=== PATIENT | male | born 2000 | race Caucasian/White ===

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

== ENCOUNTER → 2023-08-08 | Outpatient (CLI) | payer OTHER, SELFPAY ==
[2023-08-08 15:56] LABS: Absolute Lymphocyte Count 1.94 X10^3/uL (0.83-4.51); Absolute Neutrophil Count 3.8 X10^3/uL (2.0-7.7); Basophil# 0.07 X10^3/uL; Eosinophil# 0.66 X10^3/uL; Eosinophils% 9.2 % (0-5); Hematocrit 46.9 % (40-54); Hemoglobin 15.9 g/dL (13.0-16.5); Lymphocyte # 1.94 X10^3/ul (0.83-4.51); Mean Corp Hgb Conc 33.9 g/dL (32-36); Mean Corpuscular Hgb 29.2 pg (27.0-32.0); Mean Corpuscular Volume 86.2 fL (80-94); Mean Platelet Vol. 9.5 fl (6.2-12.0); Monocyte# 0.66 X10^3/uL; Monocyte% 9.2 % (0-10); NRBC Flagged by Analyzer 0 % (0-5); Neutrophil # 3.84 X10^3/uL (2.7-7.7); Neutrophil % 53.3 % (47-70); Platelet Count 392 K/mm3 (150-450); RBC Distribution Width CV 12.6 % (11.6-14.6); RBC Distribution Width SD 39.3 fl (35.1-43.9); Red Blood Count 5.44 M/mm3 (4.6-6.2); White Blood Count 7.2 K/mm3 (4.4-11.0)
[2023-08-08 16:13] LABS: Vitamin B12 313 pg/mL (211-911); Vitamin D,25 Hydroxy 23.1 ng/mL
[2023-08-08 16:16] LABS: ALB/GLOB Ratio 1.1 RATIO (0.9-2.4); AST(SGOT) 28 U/L (15-37); Alanine Aminotransfer ALT/SGPT 50 U/L (16-61); Alkaline Phosphatase 87 U/L (45-117); Anion Gap 9 (5-15); BUN 9 mg/dL (7-18); BUN/Creat Ratio 11.1 RATIO (10-20); Calcium,Total 9.1 mg/dL (8.5-10.1); Chloride 101 mmol/L (98-107); Cholesterol 196 mg/dL (200); Creatinine, Serum 0.81 mg/dL (0.70-1.30); EST Glomerular Filtration Rate 126 mL/min (>60); Est Glom Filt Rate - Afr Amer 153 mL/min (>60); Globulin 3.8 g/dL (2.2-4.2); Glucose 91 mg/dL (74-106); High Density Lipoprotein 40 mg/dL; Potassium 3.8 mmol/L (3.5-5.1); Protein, Total 7.8 g/dL (6.4-8.2); Sodium Level 136 mmol/L (136-145); T4 Free Direct 1.13 ng/dL (0.76-1.46); Thyroid Stim Hormone (TSH) 2.55 uIU/mL (0.358-3.74); Triglycerides 215 mg/dL; Very Low Density Lipoprotein 43 mg/dL (5-40)
== END | disposition home or self-care (01) ==
LOC: MFPLAB 12:29
PROVIDERS: PCP Pediatrics; Visit Provider Family Medicine
DX: R53.83 Other fatigue (principal); E66.9 Obesity, unspecified
CPT/HCPCS: 36415; 80053; 80061; 82306; 82607; 84439; 84443; 85025

== ENCOUNTER → 2024-01-09 | Outpatient (CLI) | payer OTHER, MEDICARE, MEDICAID, SELFPAY ==
[2024-01-09 17:55] LABS: Vitamin D,25 Hydroxy 11.1 ng/mL
== END | disposition home or self-care (01) ==
PROVIDERS: PCP Family Medicine; Referring Provider Family Medicine; Visit Provider Family Medicine
DX: E55.9 Vitamin D deficiency, unspecified (principal)
CPT/HCPCS: 36415; 82306

== ENCOUNTER → 2024-05-23 | Outpatient (CLI) | payer OTHER, MEDICARE, MEDICAID, SELFPAY ==
[2024-05-23 18:59] LABS: Vitamin D,25 Hydroxy 13.5 ng/mL (30-100)
[2024-05-23 19:20] LABS: ALB/GLOB Ratio 1.6 RATIO (0.9-2.4); AST(SGOT) 24 U/L (<=37); Alanine Aminotransfer ALT/SGPT 28 U/L (<=46); Albumin, Serum 4.5 g/dL (3.5-5.0); Alkaline Phosphatase 84 U/L (40-129); Anion Gap 14 (5-15); BUN 12 mg/dL (4-19); BUN/Creat Ratio 13.5 RATIO (10-20); Calcium,Total 9.1 mg/dL (7.6-11.0); Carbon Dioxide 24.2 mmol/L (21.0-32.0); Chloride 100 mmol/L (98-108); Creatinine, Serum 0.87 mg/dL (0.70-1.20); EST Glomerular Filtration Rate 124 (>60); Globulin 2.8 g/dL (2.2-4.2); Glucose 87 mg/dL (70-99); Potassium 3.6 mmol/L (3.3-5.1); Protein, Total 7.3 g/dL (5.9-8.4); Sodium Level 138 mmol/L (133-145); Total Bilirubin 0.23 mg/dL (0.00-1.30)
== END | disposition home or self-care (01) ==
LOC: MFPLAB 16:57
PROVIDERS: PCP Family Medicine; Referring Provider Family Medicine; Visit Provider Family Medicine
DX: E55.9 Vitamin D deficiency, unspecified (principal)
CPT/HCPCS: 36415; 80053; 82306

== ENCOUNTER 2024-06-02 09:23 | Observation (INO) | payer OTHER, MEDICARE, MEDICAID, SELFPAY ==
[2024-06-02] VITALS (11 sets, daily range): BP systolic 120–136; BP diastolic 69–89; PULSE 90–110; RESP 16–20; TEMP 36.2–37.5; O2SAT 96–100; BMI 29.5; BMI 30.5
--- NOTE | 2024-06-02 09:47 | CT_ITS ---
PROCEDURE: CT neck soft tissues without and with IV contrast REASON FOR EXAM: Pain, swelling TECHNIQUE: Multiple contiguous axial images through the neck soft tissues were obtained before and after the administration of intravenous contrast. Two-dimensional coronal and sagittal reformatted images were reconstructed. Low-dose imaging technique was utilized. COMPARISON: Same-day facial bone CT FINDINGS: Symmetric enlargement and enhancement of the bilateral submandibular glands with moderate surrounding inflammatory changes most consistent with acute sialadenitis. Diffuse bilateral neck fat stranding, slightly greater on the right likely related to cellulitis. No drainable abscess. Enlarged bilateral cervical chain lymph nodes which may be reactive. No sialoliths identified. No peritonsillar or retropharyngeal abscess. Airway is patent. Parotid glands and thyroid gland are intact. Globes are intact. Lung apices are clear. No acute osseous abnormality. CT/Soft Tissue Neck W/WO Contrast IMPRESSION: Acute bilateral submandibular gland sialadenitis, likely infectious/inflammator y. Diffuse neck cellulitis, greater on the right. Probable reactive bilateral cervical chain lymphadenopathy. No drainable absce ss. One or more dose reduction techniques were used (e.g., Automated exposure contr ol, adjustment of the mA and/or kV according to patient size, use of iterative reconstruction technique). Reading Location: [facility]
--- NOTE | 2024-06-02 09:47 | RAD_ITS ---
PROCEDURE: CHEST PA AND LATERAL REASON FOR EXAM: COUGH TECHNIQUE: Two views of the chest COMPARISON: None. FINDINGS: Cardiomediastinal silhouette is within normal limits. Lungs are clear. No sizable pneumothorax. RAD/Chest PA and Lateral IMPRESSION: No acute airspace abnormality. Reading Location: [facility]
--- NOTE | 2024-06-02 09:47 | CT_ITS ---
PROCEDURE: CT facial bones with IV contrast REASON FOR EXAM: Pain, swelling TECHNIQUE: Multiple contiguous axial images through the facial bones were obtained after the administration of intravenous contrast. Two-dimensional coronal and sagittal reformatted images were reconstructed. Low-dose imaging technique was utilized. COMPARISON: None. FINDINGS: Enlargement and hyperenhancement of the bilateral submandibular glands with moderate surrounding inflammatory changes concerning for acute sialadenitis. No evidence of sialoliths. Mild adjacent cellulitis, greater on the right. Thickening of the right platysma muscle. No discrete mucosal mass. Tongue base is satisfactory. Tonsillar pillars are within normal limits. No periodontal abscess. Globes are intact. Parotid glands are within normal limits. Multiple mildly enlarged bilateral cervical chain lymph nodes which may be reactive. Mild ethmoid sinus mucosal thickening. Remaining paranasal sinuses are clear. Mastoid air cells are clear. CT/Sinus/Facial Bone WITH Contras IMPRESSION: 1. Bilateral submandibular gland sialadenitis, likely infectious/inflammatory. 2. Mild bilateral cervical chain lymphadenopathy which may be reactive. One or more dose reduction techniques were used (e.g., Automated exposure contr ol, adjustment of the mA and/or kV according to patient size, use of iterative reconstruction technique). Reading Location: [facility]
--- NOTE | 2024-06-02 09:48 | EKG12_ITS ---
Test Reason : EDEMA Blood Pressure : */* mmHG Vent. Rate : 107 BPM Atrial Rate : 107 BPM P-R Int : 126 ms QRS Dur : 90 ms QT Int : 308 ms P-R-T Axes : 47 60 33 degrees QTcB Int : 411 ms Sinus tachycardia Possible Lateral infarct , age undetermined Cannot rule out Inferior infarct , age undetermined Abnormal ECG Confirmed by DAVIN AMADOR, TEMI ([id number]), graphic editor DANISH LAU ([id number]) on 06/03/2024 8:20:58 AM Referred By: Confirmed By: TEMI JIN MD
[2024-06-02] MEDS: 0.9% Normal Saline (1000mL) 1,000 ML 1000 ML IV (10:04)
--- NOTE | 2024-06-02 10:07 | EX.ED.DYSGE1 ---
HPI History of Present Illness Chief Complaint: Edema Narrative Narrative: Chief complaint and HPI: Submandibular swelling. 24-year-old male with past medical history of allergies, depression, ADD, autism presents for evaluation of submandibular swelling. Patient presents with his mother. Most of the history given by mother. Family members in the house have all endorsed URI type symptoms including the patient. Symptoms started [place]. They consist of sore throat, congestion, mild cough. Yesterday patient developed some left-sided neck swelling that worsened today to the other side. Swelling is mostly under the chin. Patient went to urgent care and was sent to our emergency department. Patient and mother deny any fever, chills, shortness of breath, chest pain, abdominal pain, nausea, vomiting. He denies any recent dental surgery or dental pain. Denies any headache, lightheadedness, vision changes, neck pain or stiffness, change in hearing, ear pain, difficulty swallowing, difficulty tolerating secretions, change in voice. Patient has been eating and drinking well. Patient received all his childhood vaccines. Not sexually active. Review of systems: See HPI Medications: As listed on the chart Allergies: As listed on the chart PFSH: Per chart Vital signs: As listed on the chart. Reviewed. Physical exam: Gen: A&O x3, NAD Head: Normocephalic, atraumatic Eyes: No sclera icterus, conjunctiva clear, PERRL, EOMI ENT: TMs clear BL-sutures present from previous ear tubes however tube not visualized in the TM bilaterally, no mastoid swelling or tenderness, green thick nasal mucus, nasal congestion, no sinus pressure or tenderness, dry mucous membranes, no tongue enlargement or swelling, posterior oropharynx mildly erythematous, uvula midline, tonsils not enlarged, no tonsillar exudates, no dental infection, submandibular swelling with mild tenderness to palpation, tolerating secretions, normal phonation Neck: Trachea midline, No JVD, Full ROM, No meningismus CV: Tachycardic, regular rhythm, no murmurs Resp: Lungs CTA BL, no w/r/c GI: Abd soft, non-distended, non-tender, no r/r/g Musc: Full ROM, no deformity Skin: Warm, dry, no rash Neuro: Alert, oriented, grossly intact, sensation intact Psych: Cooperative, appropriate mood and affect [facility] Medical History (Updated 08/04/20 @ 11:50 by Mary Reid) Autism Seizures Difficulty swallowing Non-smoker ADD (attention deficit disorder) Anxiety Home Medications ?Medication ?Instructions ?Recorded ?Last Taken ?Type methylphenidate HCl 36 mg 72 mg PO DAILY 07/28/20 06/01/24 History tablet,extended release 24 hr montelukast 10 mg tablet 10 mg PO DAILY PRN asthma 07/28/20 08/11/20 07:00 History 10 mg sertraline 100 mg tablet 100 mg PO DAILY 07/28/20 06/01/24 History cholecalciferol (vitamin D3) 50 50 mcg PO DAILY 06/02/24 06/01/24 History mcg (2,000 unit) tablet (D3 DOTS) fluticasone propionate 50 2 spray intranasal DAILY PRN 06/02/24 06/01/24 History mcg/actuation nasal allergy symptoms spray,suspension (24 Hour Allergy Relief) Allergy/AdvReac Type Severity Reaction Status Date / Time No Known Allergies Allergy Verified 08/04/20 11:32 Surgical History (Updated 08/04/20 @ 11:50 by Mary Reid) Hx of adenoidectomy History of esophagogastroduodenoscopy (EGD) (~07/2020) Social History Smoking Status: Never smoker EXAM Physical Exam Const Vital Signs: 06/02/24 09:25 06/02/24 09:37 06/02/24 10:45 Temperature 97.9 F 98.0 F 98.3 F Temperature Source Oral Oral Oral Pulse Rate 110 H 105 H 91 Respiratory Rate 20 H 16 16 Blood Pressure 127/80 H 131/88 H 127/89 H Blood Pressure Mean 95 102 101 Pulse Ox 96 96 98 Oxygen Delivery Method Room Air Room Air Room Air 06/02/24 11:00 06/02/24 12:00 06/02/24 13:00 Temperature 98.6 F 98.9 F 98.3 F Temperature Source Oral Oral Oral Pulse Rate 98 100 90 Respiratory Rate 16 19 H 19 H Blood Pressure 125/89 H 136/89 H 123/89 H Blood Pressure Mean 101 104 100 Pulse Ox 98 98 98 Oxygen Delivery Method Room Air Room Air Room Air 06/02/24 13:09 Temperature 98.3 F Temperature Source Pulse Rate 90 Respiratory Rate 19 H Blood Pressure 123/89 H Blood Pressure Mean 100 Pulse Ox 98 Oxygen Delivery Method MDM MDM MDM Narrative Medical decision making narrative: 24-year-old male with past medical history of allergies, depression, ADD, autism presents for evaluation of submandibular swelling. Differential diagnosis includes but is not limited to Eddie angina, abscess, sinusitis, cellulitis. At this point in time, patient is protecting his airway without any symptoms of airway compromise therefore we will continue to monitor. If patient's swelling or airway deteriorates may require intubation. Mother and patient informed of this and confirmed understanding. NS bolus, Zosyn, vancomycin and Zosyn ordered. Will be digestible with fluids as do not want to increase swelling. Infectious workup ordered including CT neck and face. CBC without leukocytosis or anemia. BMP unremarkable. Mcdonald negative. Strep PCR negative. Patient is positive for influenza A. Tamiflu ordered given that he is within window. CT face and soft tissue neck show Acute bilateral submandibular gland sialadenitis, likely infectious/inflammatory. Diffuse neck cellulitis, greater on the right. Probable reactive bilateral cervical chain lymphadenopathy. Patient will warrant admission for observation given concern for airway compromise and significant swelling. I spoke with ENT Dr. Alamo. He will be available if needed on the floor. He recommended 10 mg IV Decadron. This was ordered. Patient was discussed with the hospitalist service and they accepted admission. Patient family updated of all results and the plan. They confirmed understanding. EKG: Interpreted by me/EM physician: EKG shows sinus tachycardia without any acute ischemic changes. Heart rate 107 Diagnostic: Interpreted by me/EM physician: Chest x-ray without pneumonia, effusion, cardiomegaly, pneumothorax Impression: 1. Influenza A infection 2. Acute bilateral submandibular gland sialadenitis Lab Data Labs: Laboratory Results - last 24 hr 06/02/24 10:01 WBC 7.2 RBC 4.75 Hgb 14.2 Hct 40.7 MCV 85.7 MCH 29.9 MCHC 34.9 RDW Std Deviation 37.6 RDW Coeff of Yamilteh 12.0 Plt Count 281 MPV 9.4 Immature Gran % (Auto) 0.300 Neut % (Auto) 73.4 H Lymph % (Auto) 9.3 L Mcdonald % (Auto) 14.0 H Eos % (Auto) 2.4 Baso % (Auto) 0.6 Absolute Neuts (auto) 5.3 Absolute Lymphs (auto) 0.67 L Nucleated RBC % 0 Sodium 136 Potassium 3.8 Chloride 100 Carbon Dioxide 24.7 Anion Gap 12 BUN 9 Creatinine 0.83 Estim Creat Clear Calc 163.73 Est GFR (MDRD) Non-Af 126 BUN/Creatinine Ratio 11.1 Glucose 103 H Lactic Acid < 1.0 Calcium 9.0 Monoscreen Negative Radiography Diagnostic Testing: Clinical Impression(s) from Imaging Studies Chest X-Ray 06/02/24 09:47 IMPRESSION: No acute airspace abnormality. Reading Location: [facility] Facial/Sinus 06/02/24 09:47 IMPRESSION: 1. Bilateral submandibular gland sialadenitis, likely infectious/inflammatory. 2. Mild bilateral cervical chain lymphadenopathy which may be reactive. One or more dose reduction techniques were used (e.g., Automated exposure control, adjustment of the mA and/or kV according to patient size, use of iterative reconstruction technique). Reading Location: [facility] Soft Tissue Neck CT 06/02/24 09:47 IMPRESSION: Acute bilateral submandibular gland sialadenitis, likely infectious/inflammatory. Diffuse neck cellulitis, greater on the right. Probable reactive bilateral cervical chain lymphadenopathy. No drainable abscess. One or more dose reduction techniques were used (e.g., Automated exposure control, adjustment of the mA and/or kV according to patient size, use of iterative reconstruction technique). Reading Location: [facility] Discharge Plan Triage Chief Complaint: Edema ED Provider: Kevin Izquierdo Dx/Rx/DC Orders Prescriptions: No Action montelukast 10 mg tablet 10 mg PO DAILY PRN (Reason: asthma) sertraline 100 mg tablet 100 mg PO DAILY methylphenidate HCl 36 mg tablet extended release 24hr 72 mg PO DAILY fluticasone propionate [24 Hour Allergy Relief] 50 mcg/actuation spray,suspension 2 spray intranasal DAILY PRN (Reason: allergy symptoms) Rx Instructions: administer into each nostril cholecalciferol (vitamin D3) [D3 DOTS] 50 mcg (2,000 unit) tablet 50 mcg PO DAILY Primary Care Provider: Gilmer Cox Referrals: Gilmer Cox MD [Primary Care Provider] - Print Language: [place] Leonean
[2024-06-02] MEDS: Piperacil/Tazobactam 4.5 GM in 0.9% Normal Saline (100mL MB+) 100 ML IV (10:21)
[2024-06-02 10:25] LABS: Absolute Lymphocyte Count 0.67 X10^3/uL (0.83-4.51); Absolute Neutrophil Count 5.3 X10^3/uL (2.0-7.7); Basophil# 0.04 X10^3/uL; Basophil% 0.6 % (0-1); Eosinophil# 0.17 X10^3/uL; Eosinophils% 2.4 % (0-5); Hematocrit 40.7 % (40-54); Hemoglobin 14.2 g/dL (13.0-16.5); Lymphocyte # 0.67 X10^3/ul (0.83-4.51); Lymphocyte % 9.3 % (19-41); Mean Corp Hgb Conc 34.9 g/dL (32-36); Mean Corpuscular Hgb 29.9 pg (27.0-32.0); Mean Corpuscular Volume 85.7 fL (80-94); Mean Platelet Vol. 9.4 fl (6.2-12.0); Monocyte# 1.01 X10^3/uL; NRBC Flagged by Analyzer 0 % (0-5); Neutrophil # 5.31 X10^3/uL (2.7-7.7); Neutrophil % 73.4 % (47-70); Platelet Count 281 K/mm3 (150-450); RBC Distribution Width SD 37.6 fl (35.1-43.9); Red Blood Count 4.75 M/mm3 (4.6-6.2); White Blood Count 7.2 K/mm3 (4.4-11.0)
[2024-06-02 10:29] LABS: Internal QC Validated? YES +Cl - CLEAR BKGD; Monotest Negative (Negative); Record Kit Lot#, Mono 13241430
[2024-06-02 10:35] LABS: Anion Gap 12 (5-15); BUN 9 mg/dL (4-19); BUN/Creat Ratio 11.1 RATIO (10-20); Carbon Dioxide 24.7 mmol/L (21.0-32.0); Chloride 100 mmol/L (98-108); Creatinine, Serum 0.83 mg/dL (0.70-1.20); EST Glomerular Filtration Rate 126 (>60); Estimated Creatinine Clearance 163.73 ml/min (50-250); Glucose 103 mg/dL (70-99); Potassium 3.8 mmol/L (3.3-5.1); Sodium Level 136 mmol/L (133-145)
[2024-06-02 10:40] LABS: Lactic Acid < 1.0 mmol/L (0.0-2.0)
[2024-06-02] MEDS: Vancomycin HCl 2,000 MG in 0.9% Normal Saline (500mL Bag) 500 ML 250 MG IV (11:33)
--- NOTE | 2024-06-02 12:26 | PCM.HP.STD ---
HPI - General General Date of Admission: 06/02/24 Date of Service: 06/02/24 Chief Complaint: Abdominal pain HPI Narrative ELMER HENRY, is a 24 M with a past medical history as outlined which includes MRDD and ADHD who presents via the ED on 06/02/2024 with complaint of bilateral jaw swelling. Patient's family members had had flulike symptoms for a few days prior to admission and he also started having similar symptoms. According to his mother, patient complained of having a sore throat and had noticing right jaw swelling the day prior to admission. She thought it was likely due to the flulike illness. However on waking up this morning they noted that he had massive bilateral jaw swelling and so decided to bring him to the ED. He denied any fever or chills and denied any difficulty swallowing or difficulty breathing. He denied having any muffled voice and had not had such symptoms before. He also denied any nausea or vomiting, shortness of breath, cough or any other symptoms. Previous times otherwise negative. Vitals in the ED were blood pressure of 123/89, pulse rate of 90, respiratory rate of 19 and temperature of 98.3 Fahrenheit. He was saturating at 98% on room air. CBC showed WBC of 7.2 with platelets of 281 and hemoglobin of 14.2. Chemistry showed sodium of 136 with potassium of 3.8 and creatinine of 0.83. Monoscreen test was negative. Chest x-ray showed no acute cardiopulmonary pathology. CT of the soft tissue head and neck showed bilateral submandibular gland sial adenitis and mild bilateral cervical chain lymphadenopathy which may be reactive. CT of the soft tissue neck showed diffuse neck cellulitis greater on the right with probable reactive bilateral cervical chain lymphadenopathy and no drainable abscess as well as acute bilateral submandibular gland sialedinitis, likely infectious versus inflammatory. Patient is being admitted to be managed for diffuse neck cellulitis with bilateral sialedenitis. [facility] Medical History (Updated 06/02/24 @ 14:[address] Oralia Perry MD) Autism Seizures Difficulty swallowing Non-smoker ADD (attention deficit disorder) Anxiety Home Medications ?Medication ?Instructions ?Recorded ?Last Taken ?Type methylphenidate HCl 36 mg 72 mg PO DAILY 07/28/20 06/01/24 History tablet,extended release 24 hr montelukast 10 mg tablet 10 mg PO DAILY PRN asthma 07/28/20 08/11/20 07:00 History 10 mg sertraline 100 mg tablet 100 mg PO DAILY 07/28/20 06/01/24 History cholecalciferol (vitamin D3) 50 50 mcg PO DAILY 06/02/24 06/01/24 History mcg (2,000 unit) tablet (D3 DOTS) fluticasone propionate 50 2 spray intranasal DAILY PRN 06/02/24 06/01/24 History mcg/actuation nasal allergy symptoms spray,suspension (24 Hour Allergy Relief) Allergy/AdvReac Type Severity Reaction Status Date / Time No Known Allergies Allergy Verified 08/04/20 11:32 Surgical History (Updated 08/04/20 @ 11:50 by Mary Reid) Hx of adenoidectomy History of esophagogastroduodenoscopy (EGD) (~07/2020) Social History Smoking Status: Never smoker ROS Constitutional Constitutional: Reports fatigue; Denies anorexia, chills, fever(s), malaise or weakness Eyes Eyes: Denies change in vision ENT HEENT: Reports other Details: bilateral jaw swelling. ; Denies dysphagia, headache(s), nasal congestion, nasal discharge or sore throat Cardiovascular Cardiovascular: Denies dyspnea on exertion or edema Respiratory/Chest Respiratory/Chest: Denies cough, dyspnea, shortness of breath at rest or shortness of breath with exertion Gastrointestinal Gastrointestinal: Denies abdominal pain or constipation Genitourinary Genitourinary: Denies dysuria Neurologic Neurologic: Denies confusion, dizziness, focal weakness, headache(s) or numbness Psychiatric Psychiatric: Denies anxiety or depression Endocrine Endocrinology: Denies change in body appearance Hematologic/Lymphatic Hematologic/Lymphatic: Denies anemia Vital Signs Vital Signs Vital Signs: 06/02/24 09:25 06/02/24 09:37 06/02/24 10:45 Temperature 97.9 F 98.0 F 98.3 F Temperature Source Oral Oral Oral Pulse Rate 110 H 105 H 91 Respiratory Rate 20 H 16 16 Blood Pressure 127/80 H 131/88 H 127/89 H Blood Pressure Mean 95 102 101 Pulse Ox 96 96 98 Oxygen Delivery Method Room Air Room Air Room Air 06/02/24 11:00 Temperature 98.6 F Temperature Source Oral Pulse Rate 98 Respiratory Rate 16 Blood Pressure 125/89 H Blood Pressure Mean 101 Pulse Ox 98 Oxygen Delivery Method Room Air Weight Weight: 211 lb 14.4 oz Body Mass Index (BMI) 29.5 Physical Exam Const alert, oriented x3 and no apparent distress General Appearance: cooperative HEENT normocephalic and head/scalp atraumatic HEENT Narrative: bilateral massive jaw swelling, nontender, palpable submandibular lymphadenopathy, no differential warmth Mouth: oral and palatal mucosa normal Eyes PERRL, EOMs intact bilaterally and conjunctivae normal Neck no lymphadenopathy and supple Resp normal respiratory effort, no retractions, no use of accessory muscles and clear to auscultation bilaterally Resp Narrative: on room air. Cardio regular rate, regular rhythm, S1 normal heart sound, S2 normal heart sound and no murmurs GI normal to inspection, nondistended, normoactive bowel sounds, soft to palpation, non-tender and non-distended Extremity normal to inspection, full ROM and no clubbing, cyanosis or edema Neuro oriented x3, CN's II-XII intact bilaterally, moves all extremities and no focal motor deficits Sensorium / Orientation: awake and alert Motor Exam: strength 5/5 throughout Psych affect normal Results Lab / Micro Data 06/02/24 10:01 06/02/24 10:01 Labs: Laboratory Results - last 24 hr 06/02/24 10:01: WBC 7.2, RBC 4.75, Hgb 14.2, Hct 40.7, MCV 85.7, MCH 29.9, MCHC 34.9, RDW Std Deviation 37.6, RDW Coeff of Yamileth 12.0, Plt Count 281, MPV 9.4, Immature Gran % (Auto) 0.300, Neut % (Auto) 73.4 H, Lymph % (Auto) 9.3 L, [place] % (Auto) 14.0 H, Eos % (Auto) 2.4, Baso % (Auto) 0.6, Absolute Neuts (auto) 5.3, Absolute Lymphs (auto) 0.67 L, Nucleated RBC % 0, Sodium 136, Potassium 3.8, Chloride 100, Carbon Dioxide 24.7, Anion Gap 12, BUN 9, Creatinine 0.83, Estim Creat Clear Calc 163.73, Est GFR (MDRD) Non-Af 126, BUN/Creatinine Ratio 11.1, Glucose 103 H, Lactic Acid < 1.0, Calcium 9.0, Monoscreen Negative Micro: Microbiology 06/02/24 10:05 Mucosa - Nose SARS-CoV-2, Influenza & RSV (PCR) - Final Influenzae A 06/02/24 10:05 Mucosa - Throat Streptococcus pyogenes (PCR) - Final Imaging Radiology Impression Chest X-Ray 06/02/24 09:47 IMPRESSION: No acute airspace abnormality. Reading Location: [facility] Facial/Sinus 06/02/24 09:47 IMPRESSION: 1. Bilateral submandibular gland sialadenitis, likely infectious/inflammatory. 2. Mild bilateral cervical chain lymphadenopathy which may be reactive. One or more dose reduction techniques were used (e.g., Automated exposure control, adjustment of the mA and/or kV according to patient size, use of iterative reconstruction technique). Reading Location: [facility] Soft Tissue Neck CT 06/02/24 09:47 IMPRESSION: Acute bilateral submandibular gland sialadenitis, likely infectious/inflammatory. Diffuse neck cellulitis, greater on the right. Probable reactive bilateral cervical chain lymphadenopathy. No drainable abscess. One or more dose reduction techniques were used (e.g., Automated exposure control, adjustment of the mA and/or kV according to patient size, use of iterative reconstruction technique). Reading Location: [facility] Assessment & Plan Assessment/Plan (1) Cellulitis, neck: (2) Parotid gland enlargement: PLAN: Plan #Bilateral neck cellulitis with sialedinitis Patient admitted with a complaint of bilateral neck swelling. He also tested positive for influenza. CT facial sinus and CT soft tissue neck showed acute bilateral submandibular gland CL adenitis likely infectious versus inflammatory and diffuse neck cellulitis greater on the right with probable reactive bilateral cervical chain lymphadenopathy and no drainable abscess. The ED did discuss with the ENT surgeon on-call Dr. Alamo who recommended patient be given a dose of IV Decadron and per ED doctor he also stated he was available to come in and see patient if there was any airway compromise. Start patient on IV Zosyn. Continue with IV Decadron 6 mg daily. P.o. Cepacol for sore throat. Keep only on clear liquids for now. Low threshold to transfer to ICU if the swelling worsens or if there is any evidence of respiratory compromise. #Acute influenza A infection: on room air. Start on PO tamiflu 75mg bid x 5 days # History of ADHD: On methylphenidate #History of depression and MRDD: On sertraline DVT prophylaxis: Low risk. Encourage ambulation. SCDs CODE STATUS: Full code. This was discussed with patient's mother and patient and they wanted him to be full code. Charges/Coding Visit Charges Inpatient E&M: 63377 Init Hosp L3
--- NOTE | 2024-06-02 12:55 | CASEMGMT ---
Care Management Face to Face with patient for initial transition planning/care coordination assessment in the ED.? This technical writer and editor introduced self and role at [facility]. Patient alert and oriented. Patient willing to participate in assessment and is able to answer all questions appropriately.? Care providers, pharmacy, and demographics verified. Hiro?s mother was also present and assisted as well. Admitting Diagnosis: Edema Other diagnosis history: Including but may not be limited to: ?Anxiety, Autism, Depression, ADD, Seizures. PCP: Dr. Cox Specialists: None Preferred Pharmacy: [facility] Insurance: [employer] and [facility] Medicaid as secondary Prescription Benefit: Yes Living Will/HPOA: ?No but interested in getting during this admission. LNOK: Patient?s parents Jolie and Shaq and patient?s 17 year old sister, Milly. Living Arrangements: Patient lives with his parents and sister.? Patient denied any environmental barriers. Transportation: Patient drives. DME: None and none needed. HHC: No history of and not needed. SNF/Rehab: No prior admissions to either. Community Resources: [facility] Board of .? Patient has an SSA, Jim. Behavioral Health History: None Patient goals: Patient wishes to discharge home, denies need for home health care at this time. Patient denies any further needs or concerns at this time. Disposition Plan: admission to acute; RN CM/SW to follow for discharge planning needs that may arise. Ashli Dhaliwal, CARDIOVASCULAR SONOGRAPHER, WEB CONTENT SPECIALIST
[2024-06-02] MEDS: Oseltamivir Phosphate 75 MG Capsule PO ×2 (13:00→21:30)
[2024-06-02] MEDS: dexAMETHasone 10 MG/ML Vial IV (13:01)
[2024-06-02] MEDS: 0.9% Normal Saline (1000mL) 1,000 ML 125 ML IV ×2 (14:15→21:36)
[2024-06-02] MEDS: Piperacil/Tazobactam 3.375 GM in 0.9% Normal Saline (50mL MB+) 50 ML IV (22:01)
[2024-06-03 03:21] VITALS: BP 118/74; PULSE 87; RESP 18; TEMP 36.6; O2SAT 96
[2024-06-03 04:47] LABS: Absolute Lymphocyte Count 1.15 X10^3/uL (0.83-4.51); Absolute Neutrophil Count 3.4 X10^3/uL (2.0-7.7); Basophil# 0.01 X10^3/uL; Basophil% 0.2 % (0-1); Hematocrit 39.2 % (40-54); Hemoglobin 13.6 g/dL (13.0-16.5); Lymphocyte # 1.15 X10^3/ul (0.83-4.51); Lymphocyte % 21.6 % (19-41); Mean Corp Hgb Conc 34.7 g/dL (32-36); Mean Corpuscular Hgb 29.6 pg (27.0-32.0); Mean Corpuscular Volume 85.4 fL (80-94); Mean Platelet Vol. 9.5 fl (6.2-12.0); Monocyte# 0.78 X10^3/uL; Monocyte% 14.7 % (0-10); NRBC Flagged by Analyzer 0 % (0-5); Neutrophil # 3.36 X10^3/uL (2.7-7.7); Neutrophil % 63.1 % (47-70); Platelet Count 286 K/mm3 (150-450); RBC Distribution Width CV 12.2 % (11.6-14.6); RBC Distribution Width SD 37.8 fl (35.1-43.9); Red Blood Count 4.59 M/mm3 (4.6-6.2); White Blood Count 5.3 K/mm3 (4.4-11.0)
[2024-06-03] MEDS: Piperacil/Tazobactam 3.375 GM in 0.9% Normal Saline (50mL MB+) 50 ML IV (05:07)
[2024-06-03 05:15] LABS: Anion Gap 13 (5-15); BUN 9 mg/dL (4-19); BUN/Creat Ratio 11.8 RATIO (10-20); Calcium,Total 8.8 mg/dL (7.6-11.0); Carbon Dioxide 22.5 mmol/L (21.0-32.0); Chloride 104 mmol/L (98-108); Creatinine, Serum 0.72 mg/dL (0.70-1.20); EST Glomerular Filtration Rate 131 (>60); Estimated Creatinine Clearance 186.06 ml/min (50-250); Glucose 113 mg/dL (70-99); Potassium 3.7 mmol/L (3.3-5.1); Sodium Level 140 mmol/L (133-145)
[2024-06-03 08:52] VITALS: BP 125/92; PULSE 64; RESP 18; TEMP 36.3; O2SAT 100
[2024-06-03] MEDS: dexAMETHasone 10 MG/ML Vial 6 MG IV (08:55)
[2024-06-03] MEDS: Sertraline 100 MG Tablet PO (08:55)
[2024-06-03] MEDS: Oseltamivir Phosphate 75 MG Capsule PO (08:55)
--- NOTE | 2024-06-03 12:04 | DCINST_ITS ---
Discharge Instructions Diet Discharge Diet: Low fat / Low cholesterol DC O2, CPAP, BIPAP needs Home O2 Discharge instructions: No Dressing / Incision Discharge Activity: Return to Normal Activity Weight Bearing Status: Weight bearing as tolerated Dressing / Incision Call your doctor if you observe: Fever of 101 or Higher, Shortness of breath, Dizziness, Swelling in the ankles and Chest pain Follow Up Care Test Results: Test results from this visit will be discussed in further detail at your follow- up appointment, if applicable. Discharge Plan Admission Admit Date/Time: 06/02/24 12:48 Primary Reason for Your Visit: neck cellulitis, bilateral sialedinitis Attending Provider: Oralia Perry Primary Care Provider: Gilmer Cox Instructions Patient Instructions: ED Salivary Gland Infection Discharge Orders/Prescriptions Prescriptions: New oseltamivir 75 mg Capsule 75 mg PO BID Qty: 7 0RF amoxicillin-pot clavulanate 875-125 mg tablet 1 tab PO BID Qty: 14 0RF prednisone 5 mg tablets,dose pack See Taper PO DAILY Qty: 21 0RF Taper: Prednisone Taper 60 mg WITH BREAKFAST for 3 Days and 0 Hour 50 mg WITH BREAKFAST for 3 Days and 0 Hour 40 mg WITH BREAKFAST for 3 Days and 0 Hour 30 mg WITH BREAKFAST for 3 Days and 0 Hour 20 mg WITH BREAKFAST for 3 Days and 0 Hour 10 mg WITH BREAKFAST for 3 Days and 0 Hour Continued montelukast 10 mg tablet 10 mg PO DAILY PRN (Reason: asthma) sertraline 100 mg tablet 100 mg PO DAILY methylphenidate HCl 36 mg tablet extended release 24hr 72 mg PO DAILY fluticasone propionate [24 Hour Allergy Relief] 50 mcg/actuation spray,suspension 2 spray intranasal DAILY PRN (Reason: allergy symptoms) Rx Instructions: administer into each nostril cholecalciferol (vitamin D3) [D3 DOTS] 50 mcg (2,000 unit) tablet 50 mcg PO DAILY Referrals / Follow Up: Gilmer Cox MD [Primary Care Provider] - Within 1 Week Disposition Disposition (needs filled in before D/C Order can be placed): Home, Self Care
--- NOTE | 2024-06-03 12:05 | DS.PCM_ITS ---
Providers Date of Admission: 06/02/24 Date of Discharge: 06/03/24 Primary Care Physician: Dr. Gilmer Cox MD Reason For Visit: BILATERAL SIALEDINITIS Diagnosis Discharge Diagnosis (1) Cellulitis, neck: Status: Acute Code(s): L03.221 - Cellulitis of neck (2) Parotid gland enlargement: Status: Acute Code(s): K11.1 - Hypertrophy of salivary gland Plan #Bilateral neck cellulitis with sialedinitis * Patient admitted with a complaint of bilateral neck swelling. * He also tested positive for influenza. CT facial sinus and CT soft tissue neck showed acute bilateral submandibular gland CL adenitis likely infectious versus inflammatory and diffuse neck cellulitis greater on the right with probable reactive bilateral cervical chain lymphadenopathy and no drainable abscess. * The ED did discuss with the ENT surgeon on-call Dr. Alamo who recommended patient be given a dose of IV Decadron and per ED doctor he also stated he was available to come in and see patient if there was any airway compromise. * Start patient on IV Zosyn. Continue with IV Decadron 6 mg daily. * P.o. Cepacol for sore throat. Keep only on clear liquids for now. * Low threshold to transfer to ICU if the swelling worsens or if there is any evidence of respiratory compromise. * #Acute influenza A infection: on room air. Start on PO tamiflu 75mg bid x 5 days # History of ADHD: On methylphenidate #History of depression and MRDD: On sertraline DVT prophylaxis: Low risk. Encourage ambulation. SCDs CODE STATUS: Full code. This was discussed with patient's mother and patient and they wanted him to be full code. Medications at Discharge Home Medications methylphenidate HCl 36 mg tablet,extended release 24 hr 72 mg PO DAILY 07/28/20 montelukast 10 mg tablet 10 mg PO DAILY PRN asthma 07/28/20 sertraline 100 mg tablet 100 mg PO DAILY 07/28/20 cholecalciferol (vitamin D3) 50 mcg (2,000 unit) tablet (D3 DOTS) 50 mcg PO DAILY 06/02/24 fluticasone propionate 50 mcg/actuation nasal spray,suspension (24 Hour Allergy Relief) 2 spray intranasal DAILY PRN allergy symptoms 06/02/24 amoxicillin 875 mg-potassium clavulanate 125 mg tablet 1 tab PO BID #14 tabs 06/03/24 oseltamivir 75 mg capsule 75 mg PO BID #7 caps 06/03/24 prednisone 5 mg tablets in a dose pack See Taper PO DAILY #21 tabs 06/03/24 Hospital Course Operations None Procedures None Summary of Care Provided Minutes Spent on Discharge: 45 Hospital Course: ELMER HENRY, is a 24 M with a past medical history as outlined which includes MRDD and ADHD who presents via the ED on 06/02/2024 with complaint of bilateral jaw swelling. Patient's family members had had flulike symptoms for a few days prior to admission and he also started having similar symptoms. According to his mother, patient complained of having a sore throat and had noticing right jaw swelling the day prior to admission. She thought it was likely due to the flulike illness. However on waking up this morning they noted that he had massive bilateral jaw swelling and so decided to bring him to the ED. He denied any fever or chills and denied any difficulty swallowing or difficulty breathing. He denied having any muffled voice and had not had such symptoms before. He also denied any nausea or vomiting, shortness of breath, cough or any other symptoms. Previous times otherwise negative. Vitals in the ED were blood pressure of 123/89, pulse rate of 90, respiratory rate of 19 and temperature of 98.3 Fahrenheit. He was saturating at 98% on room air. CBC showed WBC of 7.2 with platelets of 281 and hemoglobin of 14.2. Chemistry showed sodium of 136 with potassium of 3.8 and creatinine of 0.83. Monoscreen test was negative. Chest x-ray showed no acute cardiopulmonary pathology. CT of the soft tissue head and neck showed bilateral submandibular gland sial adenitis and mild bilateral cervical chain lymphadenopathy which may be reactive. CT of the soft tissue neck showed diffuse neck cellulitis greater on the right with probable reactive bilateral cervical chain lymphadenopathy and no drainable abscess as well as acute bilateral submandibular gland sialedinitis, likely infectious versus inflammatory. Patient was admitted to be managed for diffuse neck cellulitis with bilateral sialedenitis. Was started on IV Zosyn and IV Decadron. She was put on a clear liquid diet initially. Subsequently the swelling went down significantly. He was able to tolerate a regular diet. He had no sore throat and no pain in the neck. He was therefore discharged home on 06/03/2024 on p.o. Augmentin for 7-day course. He was also discharged on p.o. Tamiflu for 7 tablets to complete a 5-day course. He was also discharged on a prednisone taper. He is to follow-up with his primary care doctor within 1 to 2 weeks. Patient seen and examined prior to discharge. His mother and father were by his bedside. The swelling had gone down markedly. He had no complaints. He had an uneventful night. Review of systems otherwise negative. Labs and vitals reviewed. Home medication reviewed and reconciled. Physical Exam Const alert, oriented x3 and no apparent distress General Appearance: cooperative and comfortable Orientation / Consciousness: awake HEENT normocephalic, head/scalp atraumatic, hearing grossly normal bilaterally and moist oral mucous membranes Mouth: oral and palatal mucosa normal Eyes PERRL, EOMs intact bilaterally and conjunctivae normal Neck no lymphadenopathy and supple Resp normal respiratory effort, no retractions, no use of accessory muscles and clear to auscultation bilaterally Resp Narrative: on room air. Cardio regular rate, regular rhythm, S1 normal heart sound, S2 normal heart sound and no murmurs GI normal to inspection, nondistended, normoactive bowel sounds, soft to palpation, non-tender and non-distended Extremity normal to inspection, full ROM and no clubbing, cyanosis or edema Skin no rashes or lesions noted Neuro oriented x3, CN's II-XII intact bilaterally, moves all extremities and no focal motor deficits Sensorium / Orientation: awake and alert Motor Exam: strength 5/5 throughout Psych affect normal Weight / BMI Weight Weight: 212 lb 15.465 oz Body Mass Index (BMI) 30.5 ABG / Lab / Microbiology Data 06/03/24 03:53 06/03/24 03:53 Laboratory: Laboratory Results - last 24 hr 06/03/24 03:53: WBC 5.3, RBC 4.59 L, Hgb 13.6, Hct 39.2 L, MCV 85.4, MCH 29.6, MCHC 34.7, RDW Std Deviation 37.8, RDW Coeff of [place] 12.2, Plt Count 286, MPV 9.5, Immature Gran % (Auto) 0.400, Neut % (Auto) 63.1, Lymph % (Auto) 21.6, [place] % (Auto) 14.7 H, Eos % (Auto) 0.0, Baso % (Auto) 0.2, Absolute Neuts (auto) 3.4, Absolute Lymphs (auto) 1.15, Nucleated RBC % 0, Sodium 140, Potassium 3.7, Chloride 104, Carbon Dioxide 22.5, Anion Gap 13, BUN 9, Creatinine 0.72, Estim Creat Clear Calc 186.06, Est GFR (MDRD) Non-Af 131, BUN/Creatinine Ratio 11.8, G lucose 113 H, Calcium 8.8 Microbiology: Microbiology 06/02/24 10:05 Mucosa - Nose SARS-CoV-2, Influenza & RSV (PCR) - Final Influenzae A 06/02/24 10:05 Mucosa - Throat Streptococcus pyogenes (PCR) - Final D/C Instructions Discharge Diet: Low fat / Low cholesterol Discharge Activity: Return to Normal Activity Weight Bearing Status: Weight bearing as tolerated Call your doctor if you observe: Fever of 101 or Higher, Shortness of breath, Dizziness, Swelling in the ankles and Chest pain DC O2, CPAP, BIPAP Needs Home O2 Discharge instructions: No DC home with Oxygen: No Meaningful Use Info Meaningful Use Meaningful Use Diagnoses (Choose all that apply): None applicable Ischemic Stroke Statin Dosing Therapy Reference: STATIN DOSE THERAPY REFERENCE: * Patients > 75 years receive moderate or high dose statin therapy. * Patients 75 years or YOUNGER should receive HIGH intensity statin dose unless contraindicated. You will be required to document reason for non-treatment if statin daily dose does not meet guidelines. HIGH DOSE STATIN THERAPY DAILY Atorvastatin > than or = to 40 mg Rosuvastatin > than or = to 20 mg Amlodipine + Atorvastatin > than or = to 2.5/40 mg Ezetimibe + Simvastatin 10/80 mg Simvastatin 80mg Discharge Plan Admission Admit Date/Time: 06/02/24 12:48 Primary Reason for Your Visit: neck cellulitis, bilateral sialedinitis Attending Provider: Oralia Perry Primary Care Provider: Gilmer Cox Instructions Patient Instructions: ED Salivary Gland Infection Discharge Orders/Prescriptions Prescriptions: New oseltamivir 75 mg Capsule 75 mg PO BID Qty: 7 0RF amoxicillin-pot clavulanate 875-125 mg tablet 1 tab PO BID Qty: 14 0RF prednisone 5 mg tablets,dose pack See Taper PO DAILY Qty: 21 0RF Taper: Prednisone Taper 60 mg WITH BREAKFAST for 3 Days and 0 Hour 50 mg WITH BREAKFAST for 3 Days and 0 Hour 40 mg WITH BREAKFAST for 3 Days and 0 Hour 30 mg WITH BREAKFAST for 3 Days and 0 Hour 20 mg WITH BREAKFAST for 3 Days and 0 Hour 10 mg WITH BREAKFAST for 3 Days and 0 Hour Continued montelukast 10 mg tablet 10 mg PO DAILY PRN (Reason: asthma) sertraline 100 mg tablet 100 mg PO DAILY methylphenidate HCl 36 mg tablet extended release 24hr 72 mg PO DAILY fluticasone propionate [24 Hour Allergy Relief] 50 mcg/actuation spray,suspension 2 spray intranasal DAILY PRN (Reason: allergy symptoms) Rx Instructions: administer into each nostril cholecalciferol (vitamin D3) [D3 DOTS] 50 mcg (2,000 unit) tablet 50 mcg PO DAILY Referrals / Follow Up: Gilmer Cox MD [Primary Care Provider] - Within 1 Week Disposition Disposition (needs filled in before D/C Order can be placed): Home, Self Care Charges/Coding Visit Charges Inpatient E&M: 42259 Disch Hosp >30min
[2024-06-03 13:10] VITALS: BP 121/84; PULSE 98; RESP 18; TEMP 36.6; O2SAT 97
== END 2024-06-03 11:55 | disposition home or self-care (01) ==
LOC: ED 09:51 → PCU 13:17
PROVIDERS: Admitting Provider Student in an Organized Health Care Education/Training Program; Emergency Provider Surgery; PCP Family Medicine; Visit Provider Student in an Organized Health Care Education/Training Program
DX: L03.221 Cellulitis of neck (principal); G40.909 Epilepsy, unspecified, not intractable, without status epilepticus; J10.1 Influenza due to other identified influenza virus with other respiratory manifestations; K11.1 Hypertrophy of salivary gland; F90.9 Attention-deficit hyperactivity disorder, unspecified type; F32.A Depression, unspecified; F41.9 Anxiety disorder, unspecified; F84.0 Autistic disorder; F79 Unspecified intellectual disabilities; Z79.899 Other long term (current) drug therapy
CPT/HCPCS: 36415; 70487; 70492; 71046; 80048; 83605; 85025; 86308; 87040; 87631; 87651; 93005; 96361; 96365; 96366; 96367; 96375; 96376; 99221; 99284; Q9967; A4216; G0378

== ENCOUNTER → 2024-07-16 | Outpatient (CLI) | payer OTHER, MEDICARE, MEDICAID, SELFPAY ==
[2024-07-16 18:37] LABS: ALB/GLOB Ratio 1.6 RATIO (0.9-2.4); AST(SGOT) 31 U/L (<=37); Alanine Aminotransfer ALT/SGPT 42 U/L (<=46); Albumin, Serum 4.5 g/dL (3.5-5.0); Alkaline Phosphatase 79 U/L (40-129); Anion Gap 14 (5-15); BUN 14 mg/dL (4-19); Calcium,Total 9.4 mg/dL (7.6-11.0); Carbon Dioxide 23.8 mmol/L (21.0-32.0); Chloride 103 mmol/L (98-108); Creatinine, Serum 0.82 mg/dL (0.70-1.20); EST Glomerular Filtration Rate 127 (>60); Globulin 2.8 g/dL (2.2-4.2); Glucose 82 mg/dL (70-99); Potassium 3.8 mmol/L (3.3-5.1); Protein, Total 7.3 g/dL (5.9-8.4); Sodium Level 141 mmol/L (133-145); Total Bilirubin 0.28 mg/dL (0.00-1.30)
[2024-07-16 18:38] LABS: Vitamin D,25 Hydroxy 19.6 ng/mL (30-100)
== END | disposition home or self-care (01) ==
LOC: MTLAB 16:56
PROVIDERS: PCP Family Medicine; Referring Provider Family Medicine; Visit Provider Family Medicine
DX: E55.9 Vitamin D deficiency, unspecified (principal)
CPT/HCPCS: 36415; 80053; 82306

== ENCOUNTER → 2024-12-05 | Outpatient (CLI) | payer OTHER, MEDICARE, MEDICAID, SELFPAY ==
[2024-12-05 18:14] LABS: AST(SGOT) 32 U/L (<=37); Alanine Aminotransfer ALT/SGPT 47 U/L (<=46); Albumin, Serum 4.6 g/dL (3.5-5.0); Alkaline Phosphatase 84 U/L (40-129); Anion Gap 13 (5-15); BUN 11 mg/dL (4-19); BUN/Creat Ratio 16.1 RATIO (10-20); Calcium,Total 9.5 mg/dL (7.6-11.0); Carbon Dioxide 24.3 mmol/L (21.0-32.0); Chloride 101 mmol/L (98-108); Globulin 2.8 g/dL (2.2-4.2); Glucose 92 mg/dL (70-99); Potassium 3.9 mmol/L (3.3-5.1); Vitamin D,25 Hydroxy 25.9 ng/mL (30-100)
== END | disposition home or self-care (01) ==
LOC: MFPLAB 16:38
PROVIDERS: PCP Family Medicine; Visit Provider Family Medicine
DX: E55.9 Vitamin D deficiency, unspecified (principal)
CPT/HCPCS: 36415; 80053; 82306

== ENCOUNTER 2025-01-30 18:52 | Emergency (ER) | payer OTHER, MEDICARE, MEDICAID, SELFPAY ==
[2025-01-30 18:53] VITALS: BP 154/106; PULSE 99; RESP 18; TEMP 35.9; O2SAT 99; BMI 30.7
--- NOTE | 2025-01-30 19:19 | ED.VIS.GI ---
HPI HPI - GI History of Present Illness Chief Complaint: Foreign Body Narrative Narrative: Patient is a 25-year-old male presenting to the emergency department for concern for a pill being stuck in his throat. Patient has a past medical history of esophageal stenosis. States about 4 years ago he had an episode where he was eating chicken and it folic it got stuck. A EGD was done at that time which showed esophageal stenosis. Patient states that he was taking his pills this morning around 8 or 9 AM when he swallowed and felt like a pill got stuck. States he has been able to drink since. He is able to tolerate his secretions. He denies any shortness of breath. Denies any chest pain. No vomiting. [facility] Medical History Parotid gland enlargement Cellulitis, neck Autism Seizures Difficulty swallowing Non-smoker ADD (attention deficit disorder) Anxiety Home Medications Medication Instructions Recorded Last Taken Type methylphenidate HCl 36 mg 72 mg PO DAILY 07/28/20 06/01/24 History tablet,extended release 24 hr montelukast 10 mg tablet 10 mg PO DAILY PRN asthma 07/28/20 08/11/20 07:00 History 10 mg sertraline 100 mg tablet 100 mg PO DAILY 07/28/20 06/01/24 History cholecalciferol (vitamin D3) 50 50 mcg PO DAILY 06/02/24 06/01/24 History mcg (2,000 unit) tablet (D3 DOTS) fluticasone propionate 50 2 spray intranasal DAILY PRN 06/02/24 06/01/24 History mcg/actuation nasal allergy symptoms spray,suspension (24 Hour Allergy Relief) amoxicillin 875 mg-potassium 1 tab PO BID #14 tabs 06/03/24 Unknown Rx clavulanate 125 mg tablet oseltamivir 75 mg capsule 75 mg PO BID #7 caps 06/03/24 Unknown Rx prednisone 5 mg tablets in a dose See Taper PO DAILY #21 tabs 06/03/24 Unknown Rx pack omeprazole 40 mg capsule,delayed 40 mg PO DAILY 7 days #7 caps 01/30/25 Unknown Rx release Allergy/AdvReac Type Severity Reaction Status Date / Time No Known Allergies Allergy Verified 01/30/25 18:53 Surgical History Hx of adenoidectomy History of esophagogastroduodenoscopy (EGD) (~07/2020) Social History housing: house Smoking Status: Never smoker ROS ROS ED ROS Narrative see HPI EXAM Physical Exam Narrative Exam Narrative: Vital signs: Reviewed General: Alert and orientedx3. No acute distress HEENT: Head is normocephalic and atraumatic, sinuses nontender, pupils equal round and reactive. Nares are patent. Oropharynx and throat exams normal. Moist mucous membranes. Normal posterior oropharynx. Neck: Supple without lymphadenopathy nontender Cardiovascular: Regular rate and rhythm, no murmurs. No rubs or gallops. Normal S1 and S2 Respiratory: Clear to auscultation bilaterally. No wheezes, rales, rhonchi Abdominal: Soft and nontender. Normal bowel sounds. No guarding or rebound. Nonsurgical abdomen Extremities: No tenderness. No bruising. Normal range of motion. Normal sensation. Skin: No rash or redness. The rest of the physical exam is unremarkable Const Vital Signs: 01/30/25 18:53 01/30/25 19:00 01/30/25 21:13 Temperature 96.6 F L 98.8 F Temperature Source Temporal Pulse Rate 99 98 Respiratory Rate 18 18 Respiratory Effort Normal Non-Labored Respiratory Pattern Normal Blood Pressure 154/106 H 120/93 H Blood Pressure Mean 122 102 Pulse Ox 99 99 Oxygen Delivery Method Room Air MDM MDM MDM Narrative Medical decision making narrative: Patient is a 25-year-old male presenting to the emergency department for feelings of pill stuck in his throat. Patient was seen and examined. Vitals are stable. Patient resting in bed comfortably in no acute distress. Concern for possible esophageal impaction versus pill esophagitis. Will attempt a GI cocktail with Pepcid as well as glucagon and a carbonated beverage to see if his symptoms improved. Patient was reevaluated. Does not feel like the pill is still there. He is able to tolerate p.o. with both crackers and tiffany mauricio. Recommended omeprazole for the next 7 days and given GI follow-up with Dr. Geller. Patient discharged from the Emergency Department. I do not feel that the patient's evaluation reveals any acute reason for admission at this time. I instructed them to either follow-up with their primary care physician or promptly return to the Emergency Department for reevaluation should symptoms worsen or new symptoms develop. I explained what symptoms would indicate the need to return to the emergency department. Shared decision making was used. The patient voiced understanding of the treatment plan and is agreeable with it. Clinical impression Esophageal foreign body History & Record Review Discussion w/independent historian: Patient and Family Additional record(s) reviewed:: Prior ED visit Discharge Plan Triage Chief Complaint: Foreign Body ED Provider: Delmy Cardona Dx/Rx/DC Orders Clinical Impression: Esophageal foreign body Instructions: ED Esophageal Foreign Body, Resolved Prescriptions: New omeprazole 40 mg capsule,delayed release(DR/EC) 40 mg PO DAILY 7 Days Qty: 7 0RF No Action montelukast 10 mg tablet 10 mg PO DAILY PRN (Reason: asthma) sertraline 100 mg tablet 100 mg PO DAILY methylphenidate HCl 36 mg tablet extended release 24hr 72 mg PO DAILY fluticasone propionate [24 Hour Allergy Relief] 50 mcg/actuation spray,suspension 2 spray intranasal DAILY PRN (Reason: allergy symptoms) Rx Instructions: administer into each nostril cholecalciferol (vitamin D3) [D3 DOTS] 50 mcg (2,000 unit) tablet 50 mcg PO DAILY oseltamivir 75 mg Capsule 75 mg PO BID Qty: 7 0RF amoxicillin-pot clavulanate 875-125 mg tablet 1 tab PO BID Qty: 14 0RF prednisone 5 mg tablets,dose pack See Taper PO DAILY Qty: 21 0RF Taper: Prednisone Taper 60 mg WITH BREAKFAST for 1 Day and 0 Hour 50 mg WITH BREAKFAST for 1 Day and 0 Hour 40 mg WITH BREAKFAST for 1 Day and 0 Hour 30 mg WITH BREAKFAST for 1 Day and 0 Hour 20 mg WITH BREAKFAST for 1 Day and 0 Hour 10 mg WITH BREAKFAST for 1 Day and 0 Hour Primary Care Provider: Gilmer Cox Referrals: Gilmer Cox MD [Primary Care Provider, Family Practice] Friend,DO Lamont [Med Staff - Active Staff, Gastroenterology] - As soon as possible Activity Restrictions/Additional Instructions: Take the omeprazole as prescribed. Your evaluation in the Emergency Department did not reveal any acute reason for admission. However, I want to emphasize that you may be early in the course of a disease process or illness even if it is not present. For this reason you should follow-up within 24 hours for reevaluation with either your primary care physician or if necessary back here in the Emergency Department. You should return to the Emergency Department immediately if your symptoms worsen or new symptoms develop. Print Language: Cook Islander Disposition Disposition: Home, Self Care Discharge Date/Time: 01/30/25 21:14 D/C Safety Score for UGIB Assessment Howie-Blatchford Bleeding Score (GBS): Stratifies upper GI bleeding patients who are "low-risk" and candidates for outpatient management. Hemoglobin, BUN, Recent Vital Signs: Pulse Rate 98 Blood Pressure 120/93 Score Interpretation: Score of 0: A GBS of 0 is a “Low Risk” GI bleed, and is highly sensitive (99.6% in a 2007 retrospective study) for predicting which patients did not require any “medical intervention”: blood transfusion, endoscopy, or surgery. This was confirmed in a 2009 [facility] study where patients with a score of 0 were actually discharged and had no GI bleeding mortality at 6 month followup Score above 0: A GBS greater than zero suggests a “High Risk” GI bleed that is likely to require “medical intervention”: transfusion, endoscopy, or surgery. A higher GBS also correlated with a higher likelihood of needing intervention Scores >/= 6 are associated with >50% risk of needing intervention D/C Safety Score for LGIB Assessment Assessment Tool: Readmission and adverse event risk in patients with acute lower GI bleeding. Hemoglobin and Recent Vital Signs: Pulse Rate 98 01/30/25 21:13 Blood Pressure 120/93 01/30/25 21:13 Score Interpretation: Probability Percentage of safe discharge (absence of rebleeding, blood transfusion, therapeutic intervention, 28 day readmission, or ) Score of 8 or below: Consider discharge, with appropriate precautions. Score of 9 or above: Discharge NOT recommended. Consider admission with further workup and resuscitation as necessary.
--- OUTSIDE RECORDS SUMMARY | 2025-01-30 19:24 | XMS RPT_ITS | CCD ---
Author Organization [facility] [place] Care Team Providers Care Tar Chaser Name Role Phone GUERO WEBSTER Primary Care Unavailable REFERRED, SELF Referring Unavailable GUERO WEBSTER Attending Unavailable REFERRED, SELF Referring Unavailable GUERO WEBSTER Attending Unavailable GUERO WEBSTER Primary Care Unavailable Kenny AMADOR, Dr. Gilmer Benjamin Primary Care Provider Kenny AMADOR, Dr. Gilmer Benjamin Attending Provider Kenny AMADOR, Dr. Gilmer Benjamin Referring Provider Felecia PRATER, Dr. Brown Emergency Provider Vicky AMADOR, Dr. Oralia Resendiz Admit Provider Vicky AMADOR, Dr. Oralia Resendiz Attending Provider Vicky AMADOR, Dr. Oralia Resendiz Other Provider Kenny AMADOR, Dr. Gilmer Benjamin Primary Care Physician Kenny AMADOR, Dr. Gilmer Benjamin Attending Physician Gilmer Cox Attending Unavailable Gilmer Cox Primary Care Unavailable Gilmer Cox Referring Unavailable Gilmer Cox Primary Care Unavailable Kathy Rivera NP Attending Unavailable Gilmer Cox Referring Unavailable Gilmer Cox Primary Care Unavailable Gilmer Cox Referring Unavailable Gilmer Cox Attending Unavailable Gilmer Cox Primary Care Unavailable Gilmer Cox Referring Unavailable Gilmer Cox Attending Unavailable Gilmer Cox Primary Care Unavailable Ibanam, Oralia Astrid Admitting Unavailable Vicky, Oralia Astrid Attending Unavailable Gilmer Cox Primary Care Unavailable Ibanam, Oralia Astrid Admitting Unavailable Koram, Oralia Astrid Attending Unavailable Koram, Oralia Astrid Consulting Unavailable Gilmer Cox Attending Unavailable Gilmer Cox Primary Care Unavailable Allergies Allergy Classification Reported Allergen(s) Allergy Type Date of Onset Reaction(s) Facility (1 source) Seasonal allergy; Translations: [SEASONAL ALLERGIES] Propensity to adverse reactions (disorder) 4 [facility] Rep[facility] Medications Current Medications Medication Drug Class(es) Dates Sig (Normalized) Sig (Original) amoxicillin 875 mg / clavulanate 125 mg oral tablet (4 sources) Penicillin-class Antibacterial Start: 06-03-2024 cholecalciferol 0.05 mg oral tablet (5 sources) Vitamin D Start: 06-02-2024 fluticasone propionate 0.05 mg/actuat metered dose nasal spray (5 sources) Corticosteroid Start: 06-02-2024 take 50 ug nasal route once daily as needed 24 hr methylphenidate hydrochloride 36 mg extended release oral tablet (5 sources) Central Nervous System Stimulant Start: 07-28-2020 take 2 tablets by mouth once daily montelukast 10 mg oral tablet (5 sources) Leukotriene Receptor Antagonist Start: 07-28-2020 take 1 tablet by mouth once daily as needed oseltamivir 75 mg oral capsule (4 sources) Neuraminidase Inhibitor Start: 06-03-2024 take 1 capsule by mouth twice daily predniSONE 5 mg oral tablet (4 sources) Start: 06-03-2024 sertraline 100 mg oral tablet (5 sources) Serotonin Reuptake Inhibitor Start: 07-28-2020 take 1 tablet by mouth once daily Completed/Discontinued Medications Medication Drug Class(es) Dates Sig (Normalized) Sig (Original) omeprazole 20 mg delayed release oral capsule (5 sources) Proton Pump Inhibitor Start: 07-22-2020 End: 06-02-2024 take 1 capsule by mouth once daily Omeprazole 20 MG capsule Discontinued 20 mg PO DAILY 30 July 22, 2020 12:00am June 02, 2024 12:34pm Problems Active Problems Problem Classification Problem Date Documented Da te Episodic/Chronic Esophageal disorders (5 sources) Lesion of esophagus; Translations: [Esophageal obstruction] 07-28-2020 Chronic Nutritional deficiencies (1 source) Vitamin D deficiency, unspecified; Translations: [Vitamin D deficiency, unspecified] Onset: 12-17-2024 Chronic Other injuries and conditions due to external causes (5 sources) Food lodged in esophagus; Translations: [Food in esophagus causing other injury, initial encounter] 07-23-2020 Episodic Past or Other Problems Problem Classification Problem Date Documented Da te Episodic/Chronic Diseases of mouth; excluding dental (8 sources) Hypertrophy of parotid gland; 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] Onset: 06-03-2024 06-02-2024 Episodic Other skin disorders (1 source) Localized swelling, mass and lump, head; Translations: [Localized swelling, mass and lump, head] Onset: 06-12-2024 Episodic Skin and subcutaneous tissue infections (8 sources) Cellulitis of neck; Translations: [Cellulitis of neck] Onset: 06-03-2024 06-02-2024 Episodic Results Test Name Value Interpretation Reference Range Facility Anion gap in Serum or Plasma Ordered By: Gilmer Cox on 12-05-2024 Anion gap [Moles/Vol] 13 mmol/L 5-15 [facility] BUN/creatinine ratioOrdered By: Gilmer Cox on 12-05-2024 Urea nitrogen/Creatinine [Mass ratio] 16.1 mg/mg 10- [facility] Bilirubin, totalOrdered By: Gilmer Cox on 12-05-2024 Bilirubin [Mass/Vol] 0.31 mg/dL 0.00-1.30 [facility] Carbon dioxide, total [Moles /volume] in Central venous bloodOrdered By: Gilmer Cox on 12-05-2024 CO2 [Moles/Vol] 24.3 mmol/L 21.0-32.0 [facility] Chloride assayOrdered By: Regina Cox on 12-05-2024 Chloride [Moles/Vol] 101 mmol/L 98-108 [facility] Comprehensive Metabolic Prof ilon 12-05-2024 Albumin [Mass/Vol] 4.6 g/dL Normal 3.5-5.0 [facility] Comment on above: Performed By: #### L [id number], L506.1001 #### [facility] Laboratory [address] [place], [address] Albumin/Globulin [Mass ratio] 1.7 {ratio} Normal 0.9-2.4 [facility] Comment on above: Performed By: #### L [id number], L506.1001 #### [facility] [address] [place], [address] ALK PHOS 84 U/L Normal 40-129 [facility] Comment on above: Performed By: #### L [id number], [id number] #### [facility] [address] [place], [address] ALT [Catalytic activity/Vol] 47 U/L Normal <=46 [facility] Comment on above: Performed By: #### L [id number], [id number] #### [facility] [address] [place], [address] AST [Catalytic activity/Vol] 32 U/L Normal <=37 [facility] Comment on above: Performed By: #### L [id number], [id number] #### [facility] [address] [place], [address] Bilirubin [Mass/Vol] 0.31 mg/dL Normal 0.00-1.30 [facility] Comment on above: Performed By: #### L [id number], [id number] #### [facility] [address] [place], [address] BUN/CRE 16.1 RATIO Normal 10-20 [facility] Comment on above: Performed By: #### L [id number], [id number] #### [facility] [address] [place], [address] Calcium [Mass/Vol] 9.5 mg/dL Normal 7.6-11.0 [facility] Comment on above: Performed By: #### L [id number], [id number] #### [facility] [address] [place], [address] Chloride [Moles/Vol] 101 mmol/L Normal 98-108 [facility] Comment on above: Performed By: #### L [id number], [id number] #### [facility] [address] [place], [address] CO2 [Moles/Vol] 24.3 mmol/L Normal 21.0-32.0 [facility] Comment on above: Performed By: #### L [id number], [id number] #### [facility] [address] [place], [address] Creatinine [Mass/Vol] 0.70 mg/dL Normal 0.70-1.20 [facility] Comment on above: Performed By: #### L [id number], [id number] #### [facility] [address] [place], [address] GAP 13 Normal 5-15 [facility] Comment on above: Performed By: #### L [id number], [id number] #### [facility] [address] [place], [address] GFR/1.73 sq M.predicted among non-blacks MDRD (S/P/Bld) [Vol rate/Area] 133 mL/min/{1.73_m2} Normal >60 [facility] Comment on above: Result Comment: mL/m in/1.73m2 CKD-EPI Creatinine Equation (2020) Performed By: #### L [id number], [id number] #### [facility] [address] [place], [address] Globulin (S) [Mass/Vol] 2.8 g/dL Normal 2.2-4.2 [facility] Comment on above: Performed By: #### L [id number], [id number] #### [facility] [address] [place], [address] Glucose [Mass/Vol] 92 mg/dL Normal 70-99 [facility] Comment on above: Performed By: #### L [id number], [id number] #### [facility] [address] [place], [address] Potassium [Moles/Vol] 3.9 mmol/L Normal 3.3-5.1 [facility] Comment on above: Performed By: #### L [id number], [id number] #### [facility] [address] [place], [address] Sodium [Moles/Vol] 138 mmol/L Normal 133-145 [facility] Comment on above: Performed By: #### L [id number], [id number] #### [facility] [address] [place], [address] T PROT 7.4 g/dL Normal 5.9-8.4 [facility] Comment on above: Performed By: #### L [id number], [id number] #### [facility] [address] [place], [address] Urea nitrogen [Mass/Vol] 11 mg/dL Normal 4-19 [facility] Comment on above: Performed By: #### L [id number], [id number] #### [facility] [address] [place], [address] Glomerular filtration rate ( GFR) estimation/1.73 sq m using serum, plasma, or whole bOrdered By: Gilmer Cox on 12-05-2024 GFR/1.73 sq M.predicted among non-blacks MDRD (S/P/Bld) [Vol rate/Area] 133 mL/min/{1.73_m2} >60 [facility] Comment on above: mL/min/1.73m2 CKD-EP I Creatinine Equation (2020) Laboratory - Chemistry and C hemistry - challengeOrdered By: Gilmer Cox on 12-05-2024 AST [Catalytic activity/Vol] 32 U/L <38 [facility] Potassium measurement (mass/ volume)Ordered By: Gilmer Cox on 12-05-2024 Potassium (Unsp spec) [Mass/Vol] 3.9 mmol/L 3.3-5.1 [facility] Serum creatinine measurement (mass/volume)Ordered By: Gilmer Cox on 12-05-2024 Creatinine [Mass/Vol] 0.70 mg/dL 0.70-1.20 [facility] Serum globulin measurementOr dered By: Gilmer Cox on 12-05-2024 Globulin (S) [Mass/Vol] 2.8 g/dL 2.2-4.2 [facility] Serum glucose measurement (m ass/volume)Ordered By: Gilmer Cox on 12-05-2024 Glucose [Mass/Vol] 92 mg/dL 70-99 [facility] Serum or plasma alanine bush otransferase (ALT) measurementOrdered By: Gilmer Cox on 12-05-2024 ALT [Catalytic activity/Vol] 47 U/L <47 [facility] Serum or plasma albumin catherine urement (mass/volume)Ordered By: Gilmer Cox on 12-05-2024 Albumin [Mass/Vol] 4.6 g/dL 3.5-5.0 [facility] Serum or plasma albumin/glob ulin mass ratioOrdered By: Gilmer Cox on 12-05-2024 Albumin/Globulin [Mass ratio] 1.7 {ratio} 0.9-2.4 [facility] Serum or plasma alkaline ann marie sphatase measurementOrdered By: Gilmer Cox on 12-05-2024 ALP [Catalytic activity/Vol] 84 U/L 40-129 [facility] Serum or plasma calcium catherine urement (mass/volume)Ordered By: Gilmer Cox on 12-05-2024 Calcium [Mass/Vol] 9.5 mg/dL 7.6-11.0 [facility] Serum or plasma urea nitroge n measurement (mass/volume)Ordered By: Gilmer Cox on 12-05-2024 Urea nitrogen [Mass/Vol] 11 mg/dL 4-19 [facility] Sodium levelOrdered By: Gilmer Cox on 12-05-2024 Sodium [Moles/Vol] 138 mmol/L 133-145 [facility] Total proteinOrdered By: Fili Cox on 12-05-2024 Protein [Mass/Vol] 7.4 g/dL 5.9-8.4 [facility] Vitamin D,25 Hydroxyon 12-05 Vitamin D 25-OH 25.9 ng/mL Low 30-100 [facility] Comment on above: Result Comment: Keisha min D Status Deficiency: <20 ng/mL (50nmol/L) Insufficiency: 20-30 ng/mL (50-75 nmol/L) Sufficiency: 30-100 ng/mL (75-250 nmol/L) Toxicity: >100 ng/mL (>250 nmol/L) Performed By: #### L [id number], L506.1001 #### [facility] [address] [place], [address] Anion gap in Serum or Plasma Ordered By: Gilmer Cox on 07-16-2024 Anion gap [Moles/Vol] 14 mmol/L 5-15 [facility] BUN/creatinine ratioOrdered By: Gilmer Cox on 07-16-2024 Urea nitrogen/Creatinine [Mass ratio] 17.0 mg/mg 10-20 [facility] Bilirubin, totalOrdered By: Gilmer Cox on 07-16-2024 Bilirubin [Mass/Vol] 0.28 mg/dL 0.00-1.30 [facility] Carbon dioxide, total [Moles /volume] in Central venous bloodOrdered By: Gilmer Cox on 07-16-2024 CO2 [Moles/Vol] 23.8 mmol/L 21.0-32.0 [facility] Chloride assayOrdered By: Regina Cox on 07-16-2024 Chloride [Moles/Vol] 103 mmol/L 98-108 [facility] Comprehensive Metabolic Prof ilon 07-16-2024 Albumin [Mass/Vol] 4.5 g/dL Normal 3.5-5.0 [facility] Comment on above: Performed By: #### L [id number] #### [facility] [address] [place], [address] Albumin/Globulin [Mass ratio] 1.6 {ratio} Normal 0.9-2.4 [facility] Comment on above: Performed By: #### L [id number] #### [facility] [address] [place], [address] ALK PHOS 79 U/L Normal 40-129 [facility] Comment on above: Performed By: #### L [id number] #### [facility] [address] [place], [address] ALT [Catalytic activity/Vol] 42 U/L Normal <=46 [facility] Comment on above: Performed By: #### L [id number] #### [facility] [address] [place], [address] AST [Catalytic activity/Vol] 31 U/L Normal <=37 [facility] Comment on above: Performed By: #### L [id number] #### [facility] [address] [place], [address] Bilirubin [Mass/Vol] 0.28 mg/dL Normal 0.00-1.30 [facility] Comment on above: Performed By: #### L [id number] #### [facility] [address] [place], [address] BUN/CRE 17.0 RATIO Normal 10-20 [facility] Comment on above: Performed By: #### L [id number] #### [facility] [address] [place], [address] Calcium [Mass/Vol] 9.4 mg/dL Normal 7.6-11.0 [facility] Comment on above: Performed By: #### L [id number] #### [facility] [address] [place], [address] Chloride [Moles/Vol] 103 mmol/L Normal 98-108 [facility] Comment on above: Performed By: #### L [id number] #### [facility] [address] [place], [address] CO2 [Moles/Vol] 23.8 mmol/L Normal 21.0-32.0 [facility] Comment on above: Performed By: #### L 506.1000 #### [facility] [address] [place], [address] Creatinine [Mass/Vol] 0.82 mg/dL Normal 0.70-1.20 [facility] Comment on above: Performed By: #### L 506.1000 #### [facility] [address] [place], [address] GAP 14 Normal 5-15 [facility] Comment on above: Performed By: #### L 506.1000 #### [facility] [address] [place], [address] GFR/1.73 sq M.predicted among non-blacks MDRD (S/P/Bld) [Vol rate/Area] 127 mL/min/{1.73_m2} Normal >60 [facility] Comment on above: Result Comment: mL/m in/1.73m2 CKD-EPI Creatinine Equation (2020) Performed By: #### L 506.1000 #### [facility] [address] [place], [address] Globulin (S) [Mass/Vol] 2.8 g/dL Normal 2.2-4.2 [facility] Comment on above: Performed By: #### L [id number] #### [facility] [address] [place], [address] Glucose [Mass/Vol] 82 mg/dL Normal 70-99 [facility] Comment on above: Performed By: #### L [id number] #### [facility] Laboratory [address] [place], [address] Potassium [Moles/Vol] 3.8 mmol/L Normal 3.3-5.1 [facility] Comment on above: Performed By: #### L 506.1000 #### [facility] [address] [place], [place], [id number] Sodium [Moles/Vol] 141 mmol/L Normal 133-145 [facility] Comment on above: Performed By: #### L 506.1000 #### [facility] Laboratory [address] [place], [place], [id number] T PROT 7.3 g/dL Normal 5.9-8.4 [facility] Comment on above: Performed By: #### L 506.1000 #### [facility] Laboratory [address] [place], [address] Urea nitrogen [Mass/Vol] 14 mg/dL Normal 4-19 [facility] Comment on above: Performed By: #### L 506.1000 #### [facility] [address] [place], [place], [id number] Glomerular filtration rate ( GFR) estimation/1.73 sq m using serum, plasma, or whole bOrdered By: Gilmer Cox on 07-16-2024 GFR/1.73 sq M.predicted among non-blacks MDRD (S/P/Bld) [Vol rate/Area] 127 mL/min/{1.73_m2} >60 [facility] Comment on above: mL/min/1.73m2 CKD-EP I Creatinine Equation (2020) Laboratory - Chemistry and C hemistry - challengeOrdered By: Gilmer Cox on 07-16-2024 AST [Catalytic activity/Vol] 31 U/L <38 [facility] Potassium measurement (mass/ volume)Ordered By: Gilmer Cox on 07-16-2024 Potassium (Unsp spec) [Mass/Vol] 3.8 mmol/L 3.3-5.1 [facility] Serum creatinine measurement (mass/volume)Ordered By: Gilmer Cox on 07-16-2024 Creatinine [Mass/Vol] 0.82 mg/dL 0.70-1.20 [facility] Serum globulin measurementOr dered By: Gilmer Cox on 07-16-2024 Globulin (S) [Mass/Vol] 2.8 g/dL 2.2-4.2 [facility] Serum glucose measurement (m ass/volume)Ordered By: Gilmer Cox on 07-16-2024 Glucose [Mass/Vol] 82 mg/dL 70-99 [facility] Serum or plasma alanine ubsh otransferase (ALT) measurementOrdered By: Gilmer Cox on 07-16-2024 ALT [Catalytic activity/Vol] 42 U/L <47 [facility] Serum or plasma albumin catherine urement (mass/volume)Ordered By: Gilmer Cox on 07-16-2024 Albumin [Mass/Vol] 4.5 g/dL 3.5-5.0 [facility] Serum or plasma albumin/glob ulin mass ratioOrdered By: Gilmer Cox on 07-16-2024 Albumin/Globulin [Mass ratio] 1.6 {ratio} 0.9-2.4 [facility] Serum or plasma alkaline ann marie sphatase measurementOrdered By: Gilmer Cox on 07-16-2024 ALP [Catalytic activity/Vol] 79 U/L 40-129 [facility] Serum or plasma calcium catherine urement (mass/volume)Ordered By: Gilmer Cox on 07-16-2024 Calcium [Mass/Vol] 9.4 mg/dL 7.6-11.0 [facility] Serum or plasma urea nitroge n measurement (mass/volume)Ordered By: Gilmer Cox on 07-16-2024 Urea nitrogen [Mass/Vol] 14 mg/dL 4-19 [facility] Sodium levelOrdered By: Gilmer Cox on 07-16-2024 Sodium [Moles/Vol] 141 mmol/L 133-145 [facility] Total proteinOrdered By: Fili Cox on 07-16-2024 Protein [Mass/Vol] 7.3 g/dL 5.9-8.4 [facility] Vitamin D,25 Hydroxyon 07-16 Vitamin D 25-OH 19.6 ng/mL Low 30-100 [facility] Comment on above: Result Comment: Keisha min D Status Deficiency: <20 ng/mL (50nmol/L) Insufficiency: 20-30 ng/mL (50-75 nmol/L) Sufficiency: 30-100 ng/mL (75-250 nmol/L) Toxicity: >100 ng/mL (>250 nmol/L) Performed By: #### L 506.1000 #### [facility] [address] [place], [address] Culture, Blood (WB)on 2024 CUB Blood cultures x2, f rom two different sites No growth in 5 days. Normal [facility] Comment on above: Performed By: #### L 500.4050 #### [facility] Laboratory [address] [place], [address] Basic Metabolic Profile (BMP )on 06-04-2024 BUN Normal 4-19 [facility] Comment on above: Result Comment: Canc elled via OM: Order cancelled - Patient discharged Performed By: #### L [id number] #### [facility] [address] [place], [address] BUN/CRE Normal 10-20 [facility] Comment on above: Result Comment: Canc elled via OM: Order cancelled - Patient discharged Performed By: #### L 506.1000 #### [facility] Laboratory [address] [place], [address] Calcium Normal 7.6-11.0 [facility] Comment on above: Result Comment: Canc elled via OM: Order cancelled - Patient discharged Performed By: #### L 506.1000 #### [facility] Laboratory [address] [place], [address] CL Normal 98-108 [facility] Comment on above: Result Comment: Canc elled via OM: Order cancelled - Patient discharged Performed By: #### L 506.1000 #### [facility] Laboratory [address] [place], [address] CO2 Normal 21.0-32.0 [facility] Comment on above: Result Comment: Canc elled via OM: Order cancelled - Patient discharged Performed By: #### L 506.1000 #### [facility] Laboratory [address] [place], [address] CREAT,SERUM Normal 0.70-1.20 [facility] Comment on above: Result Comment: Canc elled via OM: Order cancelled - Patient discharged Performed By: #### L 506.1000 #### [facility] Laboratory [address] [place], [address] eGFR Normal >60 [facility] Comment on above: Result Comment: Canc elled via OM: Order cancelled - Patient discharged Performed By: #### L 506.1000 #### [facility] Laboratory [address] [place], [address] GAP Normal 5-15 [facility] Comment on above: Result Comment: Canc elled via OM: Order cancelled - Patient discharged Performed By: #### L 506.1000 #### [facility] Laboratory [address] [place], [address] GLU Normal 70-99 [facility] Comment on above: Result Comment: Canc elled via OM: Order cancelled - Patient discharged Performed By: #### L 506.1000 #### [facility] Laboratory [address] [place], [address] Potassium Normal 3.3-5.1 [facility] Comment on above: Result Comment: Canc elled via OM: Order cancelled - Patient discharged Performed By: #### L 506.1000 #### [facility] Laboratory [address] [place], [address] Basic Metabolic Profile (BMP) Normal 133-145 [facility] Comment on above: Result Comment: Canc elled via OM: Order cancelled - Patient discharged Performed By: #### L 506.1000 #### [facility] Laboratory [address] [place], [address] CBC W/Diff, Automatedon - Absolute Neut Normal 2.0-7.7 [facility] Comment on above: Result Comment: Canc elled via OM: Order cancelled - Patient discharged Performed By: #### L 506.1000 #### [facility] Laboratory [address] [place], [address] HCT Normal 40-54 [facility] Comment on above: Result Comment: Canc elled via OM: Order cancelled - Patient discharged Performed By: #### L 506.1000 #### [facility] Laboratory [address] [place], [address] HGB Normal 13.0-16.5 [facility] Comment on above: Result Comment: Canc elled via OM: Order cancelled - Patient discharged Performed By: #### L 506.1000 #### [facility] Laboratory [address] [place], [address] MCH Normal 27.0-32.0 [facility] Comment on above: Result Comment: Canc elled via OM: Order cancelled - Patient discharged Performed By: #### L 506.1000 #### [facility] Laboratory [address] [place], [address] MCHC Normal 32-36 [facility] Comment on above: Result Comment: Canc elled via OM: Order cancelled - Patient discharged Performed By: #### L 506.1000 #### [facility] Laboratory [address] [place], [address] MCV Normal 80-94 [facility] Comment on above: Result Comment: Canc elled via OM: Order cancelled - Patient discharged Performed By: #### L 506.1000 #### [facility] Laboratory [address] [place], [address] NEUT% Normal 47-70 [facility] Comment on above: Result Comment: Canc elled via OM: Order cancelled - Patient discharged Performed By: #### L 506.1000 #### [facility] Laboratory [address] [place], [address] PLT Normal 150-450 [facility] Comment on above: Result Comment: Canc elled via OM: Order cancelled - Patient discharged Performed By: #### L 506.1000 #### [facility] Laboratory [address] [place], [address] RBC Normal 4.6-6.2 [facility] Comment on above: Result Comment: Canc elled via OM: Order cancelled - Patient discharged Performed By: #### L 506.1000 #### [facility] Laboratory [address] [place], [address] RDW CV Normal 11.6-14.6 [facility] Comment on above: Result Comment: Canc elled via OM: Order cancelled - Patient discharged Performed By: #### L 506.1000 #### [facility] Laboratory [address] [place], [address] RDW SD Normal 35.1-43.9 [facility] Comment on above: Result Comment: Canc elled via OM: Order cancelled - Patient discharged Performed By: #### L 506.1000 #### [facility] Laboratory [address] [place], [address] WBC Normal 4.4-11.0 [facility] Comment on above: Result Comment: Canc elled via OM: Order cancelled - Patient discharged Performed By: #### L 506.1000 #### [facility] Laboratory [address] [place], [address] Absolute lymphocyte countOrd ered By: Oralia Perry on 06-03-2024 Lymphocytes Auto (Unsp spec) [#/Vol] 1.15 10*3/uL 0.83-4.51 [facility] Absolute neutrophil countOrd ered By: Oralia Perry on 06-03-2024 Neutrophils (Bld) [#/Vol] 3.4 10*3/uL 2.0-7.7 [facility] Anion gap in Serum or Plasma Ordered By: Oarlia Perry on 06-03-2024 Anion gap [Moles/Vol] 13 mmol/L 5-15 [facility] Automated lymphocyte count a s percentage of total leukocytesOrdered By: Oralia Perry on 06-03-2024 Lymphocytes/100 WBC Auto (Unsp spec) 21.6 % 19-41 [facility] BUN/creatinine ratioOrdered By: Oralia Perry on 06-03-2024 Urea nitrogen/Creatinine [Mass ratio] 11.8 mg/mg 10-20 [facility] Basic Metabolic Profile (BMP )on 06-03-2024 BUN/CRE 11.8 RATIO Normal 10-20 [facility] Comment on above: Performed By: #### L 506.1000 #### [facility] Laboratory [address] [place], [address] Calcium [Mass/Vol] 8.8 mg/dL Normal 7.6-11.0 [facility] Comment on above: Performed By: #### L 506.1000 #### [facility] Laboratory [address] [place], [address] Chloride [Moles/Vol] 104 mmol/L Normal 98-108 [facility] Comment on above: Performed By: #### L 506.1000 #### [facility] Laboratory [address] [place], [address] CO2 [Moles/Vol] 22.5 mmol/L Normal 21.0-32.0 [facility] Comment on above: Performed By: #### L 506.1000 #### [facility] Laboratory [address] [place], [address] Creatinine [Mass/Vol] 0.72 mg/dL Normal 0.70-1.20 [facility] Comment on above: Performed By: #### L 506.1000 #### [facility] Laboratory [address] [place], [address] ECRCL 186.06 ml/min Normal 50-250 [facility] Comment on above: Performed By: #### L 506.1000 #### [facility] Laboratory [address] [place], [address] GAP 13 Normal 5-15 [facility] Comment on above: Performed By: #### L 506.1000 #### [facility] Laboratory [address] [place], [address] GFR/1.73 sq M.predicted among non-blacks MDRD (S/P/Bld) [Vol rate/Area] 131 mL/min/{1.73_m2} Normal >60 [facility] Comment on above: Result Comment: mL/m in/1.73m2 CKD-EPI Creatinine Equation (2020) Performed By: #### L 506.1000 #### [facility] Laboratory [address] [place], [address] Glucose [Mass/Vol] 113 mg/dL High 70-99 [facility] Comment on above: Performed By: #### L 506.1000 #### [facility] Laboratory [address] [place], [address] Potassium [Moles/Vol] 3.7 mmol/L Normal 3.3-5.1 [facility] Comment on above: Result Comment: Hemo lysis present, Results??could be affected. ?? Performed By: #### L 506.1000 #### [facility] Laboratory [address] [place], [address] Sodium [Moles/Vol] 140 mmol/L Normal 133-145 [facility] Comment on above: Performed By: #### L 506.1000 #### [facility] Laboratory [address] [place], [address] Urea nitrogen [Mass/Vol] 9 mg/dL Normal 4-19 [facility] Comment on above: Performed By: #### L 506.1000 #### [facility] Laboratory [address] [place], [address] Basophil percentageOrdered B y: Oralia Perry on 06-03-2024 Basophils/100 WBC (Bld) 0.2 % 0-1 [facility] CBC W/Diff, Automatedon 05-18 Absolute Lymph 1.15 X10 3/uL Normal 0.83-4.51 [facility] Comment on above: Performed By: #### L 100.0100, L500.2500 #### [facility] Laboratory [address] [place], [address] Absolute Neut 3.4 X10 3/uL Normal 2.0-7.7 [facility] Comment on above: Performed By: #### L 100.0100, L500.2500 #### [facility] Laboratory [address] [place], [address] Basophils/100 WBC (Bld) 0.2 % Normal 0-1 [facility] Comment on above: Performed By: #### L 100.0100, L500.2500 #### [facility] Laboratory [address] [place], [address] Eosinophils/100 WBC (Bld) 0.0 % Normal 0-5 [facility] Comment on above: Performed By: #### L 100.0100, L500.2500 #### [facility] Laboratory [address] [place], [address] Erythrocyte distribution width (RBC) [Ratio] 12.2 % Normal 11.6-14.6 [facility] Comment on above: Performed By: #### L 100.0100, L500.2500 #### [facility] Laboratory [address] [place], [address] Hematocrit (Bld) [Volume fraction] 39.2 % Low 40-54 [facility] Comment on above: Performed By: #### L 100.0100, L500.2500 #### [facility] Laboratory [address] [place], [address] Hemoglobin (Bld) [Mass/Vol] 13.6 g/dL Normal 13.0-16.5 [facility] Comment on above: Performed By: #### L 100.0100, L500.2500 #### [facility] Laboratory [address] [place], [address] IG% 0.400 Normal 0.0-0.9 [facility] Comment on above: Result Comment: IG% - Immature Granulocytes (promyelocytes, myelocytes and metamyelocytes) > 1% indicates that a LEFT SHIFT is Present. Performed By: #### L 100.0100, L500.2500 #### [facility] Laboratory [address] [place], [address] Lymphocytes/100 WBC (Bld) 21.6 % Normal 19-41 [facility] Comment on above: Performed By: #### L 100.0100, L500.2500 #### [facility] Laboratory [address] [place], [address] MCH (RBC) [Entitic mass] 29.6 pg Normal 27.0-32.0 [facility] Comment on above: Performed By: #### L 100.0100, L500.2500 #### [facility] Laboratory [address] [place], [address] MCHC (RBC) [Mass/Vol] 34.7 g/dL Normal 32-36 [facility] Comment on above: Performed By: #### L 100.0100, L500.2500 #### [facility] Laboratory [address] [place], [address] MCV (RBC) [Entitic vol] 85.4 fL Normal 80-94 [facility] Comment on above: Performed By: #### L 100.0100, L500.2500 #### [facility] Laboratory [address] [place], [address] Monocytes/100 WBC (Bld) 14.7 % High 0-10 [facility] Comment on above: Performed By: #### L 100.0100, L500.2500 #### [facility] Laboratory [address] [place], [address] Neutrophils/100 WBC (Bld) 63.1 % Normal 47-70 [facility] Comment on above: Performed By: #### L 100.0100, L500.2500 #### [facility] Laboratory [address], [address] Nucleated RBC (Bld) [#/Vol] 0 10*3/uL Normal 0-5 [facility] Comment on above: Performed By: #### L 100.0100, L500.2500 #### [facility] Laboratory [address] [place], [address] Platelet mean volume (Bld) [Entitic vol] 9.5 fL Normal 6.2-12.0 [facility] Comment on above: Performed By: #### L 100.0100, L500.2500 #### [facility] Laboratory [address] [place], [address] Platelets (Bld) [#/Vol] 286 10*3/uL Normal 150-450 [facility] Comment on above: Performed By: #### L 100.0100, L500.2500 #### [facility] Laboratory [address] [place], [address] RBC (Bld) [#/Vol] 4.59 10*6/uL Low 4.6-6.2 [facility] Comment on above: Performed By: #### L 100.0100, L500.2500 #### [facility] Laboratory [address] [place], [address] RDW SD 37.8 fl Normal 35.1-43.9 [facility] Comment on above: Performed By: #### L 100.0100, L500.2500 #### [facility] Laboratory [address] [place], [address] WBC (Bld) [#/Vol] 5.3 10*3/uL Normal 4.4-11.0 [facility] Comment on above: Performed By: #### L 100.0100, L500.2500 #### [facility] Laboratory [address] [place], [address] Carbon dioxide, total [Moles /volume] in Central venous bloodOrdered By: Oralia Perry on 06-03-2024 CO2 [Moles/Vol] 22.5 mmol/L 21.0-32.0 [facility] Chloride assayOrdered By: Na caren Perry on 06-03-2024 Chloride [Moles/Vol] 104 mmol/L 98-108 [facility] Discharge Instructionon 05-18 Discharge Instruction [facility] Medical Records Department [address] [place] [address] Instructions for Home/Discharge Instructions 06/03/24 1204 MR#: [id number] Acct: [id number] Name: ELMER PARSON Rep #: [id number] : 2000 24 From: Oralia Perry MD PCP: Dr. Gilmer Cox MD Status:ADM LI Discharge Instructions Diet Discharge Diet: Low fat / Low cholesterol DC O2, CPAP, BIPAP needs Home O2 Discharge instructions: No Dressing / Incision Discharge Activity: Return to Normal Activity Weight Bearing Status: Weight bearing as tolerated Dressing / Incision Call your doctor if you observe: Fever of 101 or Higher, Shortness of breath, Dizziness, Swelling in the ankles and Chest pain Follow Up Care Test Results: Test results from this visit will be discussed in further detail at your follow-up appointment, if applicable. Discharge Plan Admission Admit Date/Time: 06/02/24 12:48 Primary Reason for Your Visit: neck cellulitis, bilateral sialedinitis Attending Provider: Oralia Perry Primary Care Provider: Gilmer Cox Instructions Patient Instructions: ED Salivary Gland Infection Discharge Orders/Prescriptions Prescriptions: New oseltamivir 75 mg Capsule 75 mg PO BID Qty: 7 0RF amoxicillin-pot clavulanate 875-125 mg tablet 1 tab PO BID Qty: 14 0RF prednisone 5 mg tablets,dose pack See Taper PO DAILY Qty: 21 0RF Taper: Prednisone Taper 60 mg WITH BREAKFAST for 3 Days and 0 Hour 50 mg WITH BREAKFAST for 3 Days and 0 Hour 40 mg WITH BREAKFAST for 3 Days and 0 Hour 30 mg WITH BREAKFAST for 3 Days and 0 Hour 20 mg WITH BREAKFAST for 3 Days and 0 Hour 10 mg WITH BREAKFAST for 3 Days and 0 Hour Continued montelukast 10 mg tablet 10 mg PO DAILY PRN (Reason: asthma) sertraline 100 mg tablet 100 mg PO DAILY methylphenidate HCl 36 mg tablet extended release 24hr 72 mg PO DAILY fluticasone propionate [24 Hour Allergy Relief] 50 mcg/actuation spray,suspension 2 spray intranasal DAILY PRN (Reason: allergy symptoms) Rx Instructions: administer into each nostril cholecalciferol (vitamin D3) [D3 DOTS] 50 mcg (2,000 unit) tablet 50 mcg PO DAILY Referrals / Follow Up: Gilmer Cox MD [Primary Care Provider] - Within 1 Week Disposition Disposition (needs filled in before D/C Order can be placed): Home, Self Care 06/03/24 1205 Oralia Perry MD CC: Dr. Gilmer Cox MD Signed Normal [facility] Electrocardiogram reportOrde red By: Jignesh Wheeler on 06-03-2024 EKG study [facility] [address] [place] [address] 12 Lead EKG 06/02/24 1002 MR#: [id number] Acct: [id number] Name: ELMER PARSON Rep #:[id number] : 2000 24 From: Jignesh Wheeler MD Attending Dr: Dr. Oralia Perry MD Status: ADM LI Ordering Dr: Kevin Izquierdo DO D ate: 06/02/24 Location: U Sex: M C Admitted: 06/02/24 Test Reason : EDEMA Blood Pressure : */* mmHG Vent. Rate : 107 BPM Atrial Rate : 107 BPM P-R Int : 126 ms QRS Dur : 90 ms QT Int : 308 ms P-R-T Axes : 47 60 33 degrees QTcB Int : 411 ms Sinus tachycardia Possible Lateral infarct , age undetermined Cannot rule out Inferior infarct , age undetermined Abnormal ECG Confirmed by JIGNESH WHEELER MD ([id number]), editor managing director DANISH LAU ([id number]) on 06/03/2024 8:20:58 AM Referred By: Confirmed By: JIGNESH WHEELER MD 06/03/24820 Date _ Jignesh Wheeler MD CC: Dr. Kevin Izquierdo DO; Dr. Gilmer Cox MD; Dr. Oralia Perry MD ~ Signed [facility] Other Phone: Eosinophil percentageOrdered By: Oralia Perry on 06-03-2024 Eosinophils/100 WBC (Bld) 0.0 % 0-5 [facility] Erythrocyte distribution wid th ratioOrdered By: Oralia Perry on 06-03-2024 Erythrocyte distribution width (RBC) [Ratio] 12.2 % 11.6-14.6 [facility] Erythrocyte distribution wid th standard deviationOrdered By: Oralia Perry on 06-03-2024 Erythrocyte distribution width (RBC) [Entitic vol] 37.8 fL 35.1-43.9 [facility] Erythrocyte distribution width (RBC) [Ratio] 37.8 fl 35.1-43.9 [facility] Estimation of creatinine delvis aranceOrdered By: Oralia Perry on 06-03-2024 Estimated Creatinine Clearance Calc 186.06 ml/min 50-250 [facility] GFR/1.73 sq M.predicted daniele g non-blacks MDRD (S/P/Bld) [Vol rate/Area]Ordered By: Oralia Perry on 06-03-2024 Estimated GFR (MDRD) Non-Af Amer 131 >60 [facility] Comment on above: mL/min/1.73m2 CKD-EP I Creatinine Equation (2020) Glomerular filtration rate ( GFR) estimation/1.73 sq m using serum, plasma, or whole bOrdered By: Oralia Perry on 06-03-2024 GFR/1.73 sq M.predicted among non-blacks MDRD (S/P/Bld) [Vol rate/Area] 131 mL/min/{1.73_m2} >60 [facility] Comment on above: mL/min/1.73m2 CKD-EP I Creatinine Equation (2020) Hematocrit Auto (Bld) [Volum e fraction]Ordered By: Oralia Perry on 06-03-2024 Hematocrit (Bld) [Volume fraction] 39.2 % Low 40-54 [facility] Hemoglobin measurementOrdere d By: Oralia Perry on 06-03-2024 Hemoglobin (Bld) [Mass/Vol] 13.6 g/dL 13.0-16.5 [facility] Immature granulocytes/100 WB C Auto (Bld)Ordered By: Oralia Perry on 06-03-2024 Immature granulocytes/100 WBC (Bld) 0.400 % 0.0-0.9 [facility] Comment on above: IG% - Immature Granu locytes (promyelocytes, myelocytes and metamyelocytes) > 1% indicates that a LEFT SHIFT is Present. Lymphocytes Auto (Unsp spec) [#/Vol]Ordered By: Oralia Perry on 06-03-2024 Lymphocytes (Bld) [#/Vol] 1.15 10*3/uL 0.83-4.51 [facility] Lymphocytes/100 WBC Auto (Un sp spec)Ordered By: Oralia Perry on 06-03-2024 Lymphocytes/100 WBC (Bld) 21.6 % 19-41 [facility] MCV (mean corpuscular volume ) determinationOrdered By: Oralia Perry on 06-03-2024 MCV (RBC) [Entitic vol] 85.4 fL 80-94 [facility] Mean corpuscular hemoglobin (MCH) determinationOrdered By: Oralia Perry on 06-03-2024 MCH (RBC) [Entitic mass] 29.6 pg 27.0-32.0 [facility] Mean corpuscular hemoglobin concentration (MCHC) determinationOrdered By: Oralia Perry on 06-03-2024 MCHC (RBC) [Mass/Vol] 34.7 g/dL 32-36 [facility] Mean platelet volume determi nationOrdered By: Oralia Perry on 06-03-2024 Platelet mean volume (Bld) [Entitic vol] 9.5 fL 6.2-12.0 [facility] Monocyte percentageOrdered B y: Oralia Perry on 06-03-2024 Monocytes/100 WBC (Bld) 14.7 % High 0-10 [facility] Neutrophil percentageOrdered By: Oralia Perry on 06-03-2024 Neutrophils/100 WBC (Bld) 63.1 % 47-70 [facility] Nucleated red blood cell per centageOrdered By: Oralia Perry on 06-03-2024 Nucleated RBC/100 WBC (Bld) [Ratio] 0 % 0-5 [facility] Platelet countOrdered By: Na na Vicky on 06-03-2024 Platelets (Bld) [#/Vol] 286 10*3/uL 150-450 [facility] Potassium (Unsp spec) [Mass/ Vol]Ordered By: Oralia Perry on 06-03-2024 Potassium [Moles/Vol] 3.7 mmol/L 3.3-5.1 [facility] Comment on above: Hemolysis present, R esults could be affected. Potassium measurement (mass/ volume)Ordered By: Oralia Perry on 06-03-2024 Potassium (Unsp spec) [Mass/Vol] 3.7 mmol/L 3.3-5.1 [facility] Comment on above: Hemolysis present, R esults could be affected. RBC Auto (Bld) [#/Vol]Ordere d By: Oralia Perry on 06-03-2024 RBC (Bld) [#/Vol] 4.59 10*6/uL Low 4.6-6.2 [facility] Serum creatinine measurement (mass/volume)Ordered By: Oralia Perry on 06-03-2024 Creatinine [Mass/Vol] 0.72 mg/dL 0.70-1.20 [facility] Serum glucose measurement (m ass/volume)Ordered By: Oralia Perry on 06-03-2024 Glucose [Mass/Vol] 113 mg/dL High 70-99 [facility] Serum or plasma calcium catherine urement (mass/volume)Ordered By: Oralia Perry on 06-03-2024 Calcium [Mass/Vol] 8.8 mg/dL 7.6-11.0 [facility] Serum or plasma urea nitroge n measurement (mass/volume)Ordered By: Oralia Perry on 06-03-2024 Urea nitrogen [Mass/Vol] 9 mg/dL 4-19 [facility] Sodium levelOrdered By: Oralia Perry on 06-03-2024 Sodium [Moles/Vol] 140 mmol/L 133-145 [facility] White blood cell (WBC) count Ordered By: Oralia Perry on 06-03-2024 WBC (Bld) [#/Vol] 5.3 10*3/uL 4.4-11.0 [facility] 12 Lead EKGon 06-02-2024 12 Lead EKG [facility] Cardiovascular Services [address] [place] [address] 12 Lead EKG 06/02/24 1002 MR#: [id number] Acct: [id number] Name: ELMER PARSON Rep #: [id number] : 2000 24 From: Jignesh Wheeler MD Attending Dr: Dr. Oralia Perry MD Status: BILL JEFFERSON Ordering Dr: Kevin Izquierdo DO Date: 5 Location: [facility] Sex: M C Admitted: 06/02/24 Test Reason : EDEMA Blood Pressure : */* mmHG Vent. Rate : 107 BPM Atrial Rate : 107 BPM P-R Int : 126 ms QRS Dur : 90 ms QT Int : 308 ms P-R-T Axes : 47 60 33 degrees QTcB Int : 411 ms Sinus tachycardia Possible Lateral infarct , age undetermined Cannot rule out Inferior infarct , age undetermined Abnormal ECG Confirmed by JIGNESH WHEELER MD ([id number]), editor managing director DANISH LAU ([id number]) on 06/03/2024 8:20:58 AM Referred By: Confirmed By: JIGNESH WHEELER MD 06/03/24 0821 Date Jignesh Wheeler MD CC: Dr. Kevin Izquierdo DO; Dr. Gilmer Cox MD; Dr. Oralia Perry MD Signed Normal [facility] Absolute neutrophil countOrd ered By: Kevin Izquierdo on 06-02-2024 Neutrophils (Bld) [#/Vol] 5.3 10*3/uL 2.0-7.7 [facility] Anion gap in Serum or Plasma Ordered By: Kevin Izquierdo on 06-02-2024 Anion gap [Moles/Vol] 12 mmol/L 5-15 [facility] BUN/creatinine ratioOrdered By: Kevin Izquierdo on 06-02-2024 Urea nitrogen/Creatinine [Mass ratio] 11.1 mg/mg - [facility] Basic Metabolic Profile (BMP )on 06-02-2024 BUN/CRE 11.1 RATIO Normal - [facility] Comment on above: Performed By: #### L 500.2500, L100.0100, L503.6005, L700.5500 #### [facility] Laboratory [address] [place], [address] Calcium [Mass/Vol] 9.0 mg/dL Normal 7.6-11.0 [facility] Comment on above: Performed By: #### L 500.2500, L100.0100, L503.6005, L700.5500 #### [facility] Laboratory [address] [place], [address] Chloride [Moles/Vol] 100 mmol/L Normal 98-108 [facility] Comment on above: Performed By: #### L 500.2500, L100.0100, L503.6005, L700.5500 #### [facility] Laboratory [address] [place], [address] CO2 [Moles/Vol] 24.7 mmol/L Normal 21.0-32.0 [facility] Comment on above: Performed By: #### L 500.2500, L100.0100, L503.6005, L700.5500 #### [facility] Laboratory [address] [place], [address] Creatinine [Mass/Vol] 0.83 mg/dL Normal 0.70-1.20 [facility] Comment on above: Performed By: #### L 500.2500, L100.0100, L503.6005, L700.5500 #### [facility] Laboratory [address] [place], [address] ECRCL 163.73 ml/min Normal 50-250 [facility] Comment on above: Performed By: #### L 500.2500, L100.0100, L503.6005, L700.5500 #### [facility] Laboratory [address] [place], [address] GAP 12 Normal 5-15 [facility] Comment on above: Performed By: #### L 500.2500, L100.0100, L503.6005, L700.5500 #### [facility] Laboratory [address] [place], [address] GFR/1.73 sq M.predicted among non-blacks MDRD (S/P/Bld) [Vol rate/Area] 126 mL/min/{1.73_m2} Normal >60 [facility] Comment on above: Result Comment: mL/m in/1.73m2 CKD-EPI Creatinine Equation (2020) Performed By: #### L 500.2500, L100.0100, L503.6005, L700.5500 #### [facility] Laboratory [address] [place], [address] Glucose [Mass/Vol] 103 mg/dL High 70-99 [facility] Comment on above: Performed By: #### L 500.2500, L100.0100, L503.6005, L700.5500 #### [facility] Laboratory [address] [place], [address] Potassium [Moles/Vol] 3.8 mmol/L Normal 3.3-5.1 [facility] Comment on above: Performed By: #### L 500.2500, L100.0100, L503.6005, L700.5500 #### [facility] Laboratory [address] [place], [address] Sodium [Moles/Vol] 136 mmol/L Normal 133-145 [facility] Comment on above: Performed By: #### L 500.2500, L100.0100, L503.6005, L700.5500 #### [facility] Laboratory [address] [place], [address] Urea nitrogen [Mass/Vol] 9 mg/dL Normal 4-19 [facility] Comment on above: Performed By: #### L 500.2500, L100.0100, L503.6005, L700.5500 #### [facility] Laboratory [address] [place], [address] Basophil percentageOrdered B y: Kevin Izquierdo on 06-02-2024 Basophils/100 WBC (Bld) 0.6 % 0-1 [facility] Blood cultureOrdered By: Rodri Izquierdo on 06-02-2024 Bacteria identified Cx Nom (Bld) No growth in 5 days. [facility] Bacteria identified Cx Nom (Bld) No growth in 5 days. [facility] CBC W/Diff, Automatedon 05-18 Absolute Lymph 0.67 X10 3/uL Low 0.83-4.51 [facility] Comment on above: Performed By: #### L 500.2500, L100.0100, L503.6005, L700.5500 #### [facility] Laboratory [address] [place], [address] Absolute Neut 5.3 X10 3/uL Normal 2.0-7.7 [facility] Comment on above: Performed By: #### L 500.2500, L100.0100, L503.6005, L700.5500 #### [facility] Laboratory [address] [place], [address] Basophils/100 WBC (Bld) 0.6 % Normal 0-1 [facility] Comment on above: Performed By: #### L 500.2500, L100.0100, L503.6005, L700.5500 #### [facility] Laboratory [address] [place], [address] Eosinophils/100 WBC (Bld) 2.4 % Normal 0-5 [facility] Comment on above: Performed By: #### L 500.2500, L100.0100, L503.6005, L700.5500 #### [facility] Laboratory [address] [place], [address] Erythrocyte distribution width (RBC) [Ratio] 12.0 % Normal 11.6-14.6 [facility] Comment on above: Performed By: #### L 500.2500, L100.0100, L503.6005, L700.5500 #### [facility] Laboratory [address] [place], [address] Hematocrit (Bld) [Volume fraction] 40.7 % Normal 40-54 [facility] Comment on above: Performed By: #### L 500.2500, L100.0100, L503.6005, L700.5500 #### [facility] Laboratory [address] [place], [address] Hemoglobin (Bld) [Mass/Vol] 14.2 g/dL Normal 13.0-16.5 [facility] Comment on above: Performed By: #### L 500.2500, L100.0100, L503.6005, L700.5500 #### [facility] Laboratory [address] [place], [address] IG% 0.300 Normal 0.0-0.9 [facility] Comment on above: Result Comment: IG% - Immature Granulocytes (promyelocytes, myelocytes and metamyelocytes) > 1% indicates that a LEFT SHIFT is Present. Performed By: #### L 500.2500, L100.0100, L503.6005, L700.5500 #### [facility] Laboratory [address] [place], [address] Lymphocytes/100 WBC (Bld) 9.3 % Low 19-41 [facility] Comment on above: Performed By: #### L 500.2500, L100.0100, L503.6005, L700.5500 #### [facility] Laboratory [address] [place], [address] MCH (RBC) [Entitic mass] 29.9 pg Normal 27.0-32.0 [facility] Comment on above: Performed By: #### L 500.2500, L100.0100, L503.6005, L700.5500 #### [facility] Laboratory [address] [place], [address] MCHC (RBC) [Mass/Vol] 34.9 g/dL Normal 32-36 [facility] Comment on above: Performed By: #### L 500.2500, L100.0100, L503.6005, L700.5500 #### [facility] Laboratory [address] [place], [address] MCV (RBC) [Entitic vol] 85.7 fL Normal 80-94 [facility] Comment on above: Performed By: #### L 500.2500, L100.0100, L503.6005, L700.5500 #### [facility] Laboratory [address] [place], [address] Monocytes/100 WBC (Bld) 14.0 % High 0-10 [facility] Comment on above: Performed By: #### L 500.2500, L100.0100, L503.6005, L700.5500 #### [facility] Laboratory [address] [place], [address] Neutrophils/100 WBC (Bld) 73.4 % High 47-70 [facility] Comment on above: Performed By: #### L 500.2500, L100.0100, L503.6005, L700.5500 #### [facility] Laboratory [address] [place], [address] Nucleated RBC (Bld) [#/Vol] 0 10*3/uL Normal 0-5 [facility] Comment on above: Performed By: #### L 500.2500, L100.0100, L503.6005, L700.5500 #### [facility] Laboratory [address] [place], [address] Platelet mean volume (Bld) [Entitic vol] 9.4 fL Normal 6.2-12.0 [facility] Comment on above: Performed By: #### L 500.2500, L100.0100, L503.6005, L700.5500 #### [facility] Laboratory [address] [place], [address] Platelets (Bld) [#/Vol] 281 10*3/uL Normal 150-450 [facility] Comment on above: Performed By: #### L 500.2500, L100.0100, L503.6005, L700.5500 #### [facility] Laboratory [address] [place], [address] RBC (Bld) [#/Vol] 4.75 10*6/uL Normal 4.6-6.2 [facility] Comment on above: Performed By: #### L 500.2500, L100.0100, L503.6005, L700.5500 #### [facility] Laboratory [address] [place], [address] RDW SD 37.6 fl Normal 35.1-43.9 [facility] Comment on above: Performed By: #### L 500.2500, L100.0100, L503.6005, L700.5500 #### [facility] Laboratory [address] [place], [address] WBC (Bld) [#/Vol] 7.2 10*3/uL Normal 4.4-11.0 [facility] Comment on above: Performed By: #### L 500.2500, L100.0100, L503.6005, L700.5500 #### [facility] Laboratory [address] [place], [address] Carbon dioxide, total [Moles /volume] in Central venous bloodOrdered By: Kevin Izquierdo on 06-02-2024 CO2 [Moles/Vol] 24.7 mmol/L 21.0-32.0 [facility] Chest PA and Lateralon 06-02 Chest PA and Lateral [facility] Imaging Services [address] [place] [address] Chest PA and Lateral MR#: [id number] Acct: [id number] Name: ELMER PARSON Rep #: [id number] : 2000 M 24 From: Ed Simon PCP: Dr. Gilmer Cox MD Status: REG ER Study: Chest PA and Lateral Date of Exam: 06/02/24 Exam# [id number] Ordering Dr: Kevin Izquierdo DO PROCEDURE: CHEST PA AND LATERAL REASON FOR EXAM: COUGH TECHNIQUE: Two views of the chest COMPARISON: None. FINDINGS: Cardiomediastinal silhouette is within normal limits. Lungs are clear. No sizable pneumothorax. RAD/Chest PA and Lateral IMPRESSION: No acute airspace abnormality. Reading Location: [facility] CC: Dr. Kevin Izquierdo DO; Dr. Gilmer Cox MD Rock Loader: Signed Normal [facility] Chloride assayOrdered By: Abdoulaye Izquierdo on 06-02-2024 Chloride [Moles/Vol] 100 mmol/L 98-108 [facility] Emergency Department Summary on 06-02-2024 Emergency Department Summary [facility] Medical Records Department [address] [place] [address] Emergency Department Summary 06/02/24 MR#: [id number] Acct: [id number] Name: ELMER PARSON Rep #: [id number] : 2000 24 From: Kevin Izquierdo DO PCP: Dr. Gilmer Cox MD Status:REG ER Location: ED HPI History of Present Illness Chief Complaint: Edema Narrative Narrative: Chief complaint and HPI: Submandibular swelling. 24-year-old male with past medical history of allergies, depression, ADD, autism presents for evaluation of submandibular swelling. Patient presents with his mother. Most of the history given by mother. Family members in the house have all endorsed URI type symptoms including the patient. Symptoms started [place]. They consist of sore throat, congestion, mild cough. Yesterday patient developed some left-sided neck swelling that worsened today to the other side. Swelling is mostly under the chin. Patient went to urgent care and was sent to our emergency department. Patient and mother deny any fever, chills, shortness of breath, chest pain, abdominal pain, nausea, vomiting. He denies any recent dental surgery or dental pain. Denies any headache, lightheadedness, vision changes, neck pain or stiffness, change in hearing, ear pain, difficulty swallowing, difficulty tolerating secretions, change in voice. Patient has been eating and drinking well. Patient received all his childhood vaccines. Not sexually active. Review of systems: See HPI Medications: As listed on the chart Allergies: As listed on the chart PFSH: Per chart Vital signs: As listed on the chart. Reviewed. Physical exam: Gen: A O x3, NAD Head: Normocephalic, atraumatic Eyes: No sclera icterus, conjunctiva clear, PERRL, EOMI ENT: TMs clear BL-sutures present from previous ear tubes however tube not visualized in the TM bilaterally, no mastoid swelling or tenderness, green thick nasal mucus, nasal congestion, no sinus pressure or tenderness, dry mucous membranes, no tongue enlargement or swelling, posterior oropharynx mildly erythematous, uvula midline, tonsils not enlarged, no tonsillar exudates, no dental infection, submandibular swelling with mild tenderness to palpation, tolerating secretions, normal phonation Neck: Trachea midline, No JVD, Full ROM, No meningismus CV: Tachycardic, regular rhythm, no murmurs Resp: Lungs CTA BL, no w/r/c GI: Abd soft, non-distended, non-tender, no r/r/g Musc: Full ROM, no deformity Skin: Warm, dry, no rash Neuro: Alert, oriented, grossly intact, sensation intact Psych: Cooperative, appropriate mood and affect [facility] Medical History (Updated 08/04/20 @ 11:50 by Mary Reid) Autism Seizures Difficulty swallowing Non-smoker ADD (attention deficit disorder) Anxiety Home Medications ???Medication ???Instructions ???Recorded ???Last Taken ???Type methylphenidate HCl 36 mg 72 mg PO DAILY 07/28/20 06/01/24 H istory tablet,extended release 24 hr montelukast 10 mg tablet 10 mg PO DAILY PRN asthma 07/28/20 08/11/20 07:00 History 10 mg sertraline 100 mg tablet 100 mg PO DAILY 07/28/20 06/01/24 History cholecalciferol (vitamin D3) 50 50 mcg PO DAILY 06/02/24 06/01/24 History mcg (2,000 unit) tablet (D3 DOTS) fluticasone propionate 50 2 spray intranasal DAILY PRN 06/0206/01/24 History mcg/actuation nasal allergy symptoms spray,suspension (24 Hour Allergy Relief) Allergy/AdvReac Type Severity Reaction Status Date / Time No Known Allergies Allergy Verified 08/04/20 11:32 Surgical History (Updated 08/04/20 @ 11:50 by Mary Reid) Hx of adenoidectomy History of esophagogastroduodenoscopy (EGD) ( 07/2020) Social History Smoking Status: Never smoker EXAM Physical Exam Const Vital Signs: 06/02/24 09:25 06/02/24 09:37 06/02/24 10:45 Temperature 97.9 F 98.0 F 98.3 F Temperature Source Oral Oral Oral Pulse Rate 110 H 105 H 91 Respiratory Rate 20 H 16 16 Blood Pressure 127/80 H 131/88 H 127/89 H Blood Pressure Mean 95 102 101 Pulse Ox 96 96 98 Oxygen Delivery Method Room Air Room Air Room Air 06/02/24 11:00 06/02/24 12:00 06/02/24 13:00 Temperature 98.6 F 98.9 F 98.3 F Temperature Source Oral Oral Oral Pulse Rate 98 100 90 Respiratory Rate 16 19 H 19 H Blood Pressure 125/89 H 136/89 H 123/89 H Blood Pressure Mean 101 104 100 Pulse Ox 98 98 98 Oxygen Delivery Method Room Air Room Air Room Air 06/02/24 13:09 Temperature 98.3 F Temperature Source Pulse Rate 90 Respiratory Rate 19 H Blood Pressure 123/89 H Blood Pressure Mean 100 Pulse Ox 98 Oxygen Delivery Method MDM MDM MDM Narrative Medical decision making narrative: 24- (more content not included)... Normal [facility] Eosinophil percentageOrdered By: Kevin Izquierdo on 06-02-2024 Eosinophils/100 WBC (Bld) 2.4 % 0-5 [facility] Erythrocyte distribution wid th ratioOrdered By: [facility] on 06-02-2024 Erythrocyte distribution width (RBC) [Ratio] 12.0 % 11.6-14.6 [facility] Erythrocyte distribution wid th standard deviationOrdered By: Ambrose Martita Marti on 06-02-2024 Erythrocyte distribution width (RBC) [Entitic vol] 37.6 fL 35.1-43.9 [facility] Estimation of creatinine delvis aranceOrdered By: [facility] on 06-02-2024 Estimated Creatinine Clearance Calc 163.73 ml/min 50-250 [facility] GFR/1.73 sq M.predicted daniele g non-blacks MDRD (S/P/Bld) [Vol rate/Area]Ordered By: [facility] on 06-02-2024 Estimated GFR (MDRD) Non-Af Amer 126 >60 [facility] Comment on above: mL/min/1.73m2 CKD-EP I Creatinine Equation (2020) H AND P Exam - [facility] 06-02-2024 H&P Exam - Hospitalist [facility] Medical Records Department [address] [place] [address] H P Exam - Hospitalist 06/02/24 1226 MR#: [id number] Acct: [id number] Name: ELMER PARSON Rep #: [id number] : 2000 24 From: Oralia Perry MD PCP: Dr. Gilmer Cox MD Status:ADM LI Location: [place] [id number] HPI - General General Date of Admission: 06/02/24 Date of Service: 06/02/24 Chief Complaint: Abdominal pain HPI Narrative ELMER PARSON, is a 24 M with a past medical history as outlined which includes MRDD and ADHD who presents via the ED on 06/02/2024 with complaint of bilateral jaw swelling. Patient's family members had had flulike symptoms for a few days prior to admission and he also started having similar symptoms. According to his mother, patient complained of having a sore throat and had noticing right jaw swelling the day prior to admission. She thought it was likely due to the flulike illness. However on waking up this morning they noted that he had massive bilateral jaw swelling and so decided to bring him to the ED. He denied any fever or chills and denied any difficulty swallowing or difficulty breathing. He denied having any muffled voice and had not had such symptoms before. He also denied any nausea or vomiting, shortness of breath, cough or any other symptoms. Previous times otherwise negative. Vitals in the ED were blood pressure of 123/89, pulse rate of 90, respiratory rate of 19 and temperature of 98.3 Fahrenheit. He was saturating at 98% on room air. CBC showed WBC of 7.2 with platelets of 281 and hemoglobin of 14.2. Chemistry showed sodium of 136 with potassium of 3.8 and creatinine of 0.83. Monoscreen test was negative. Chest x-ray showed no acute cardiopulmonary pathology. CT of the soft tissue head and neck showed bilateral submandibular gland sial adenitis and mild bilateral cervical chain lymphadenopathy which may be reactive. CT of the soft tissue neck showed diffuse neck cellulitis greater on the right with probable reactive bilateral cervical chain lymphadenopathy and no drainable abscess as well as acute bilateral submandibular gland sialedinitis, likely infectious versus inflammatory. Patient is being admitted to be managed for diffuse neck cellulitis with bilateral sialedenitis. [facility] Medical History (Updated 06/02/24 @ 14:[address] Oralia Perry MD) Autism Seizures Difficulty swallowing Non-smoker ADD (attention deficit disorder) Anxiety Home Medications ???Medication ???Instructions ???Recorded ???Last Taken ???Type methylphenidate HCl 36 mg 72 mg PO DAILY 07/28/20 06/01/24 H istory tablet,extended release 24 hr montelukast 10 mg tablet 10 mg PO DAILY PRN asthma 07/28/20 08/11/20 07:00 History 10 mg sertraline 100 mg tablet 100 mg PO DAILY 07/28/20 06/01/24 History cholecalciferol (vitamin D3) 50 50 mcg PO DAILY 06/02/24 06/01/24 History mcg (2,000 unit) tablet (D3 DOTS) fluticasone propionate 50 2 spray intranasal DAILY PRN 06/0206/01/24 History mcg/actuation nasal allergy symptoms spray,suspension (24 Hour Allergy Relief) Allergy/AdvReac Type Severity Reaction Status Date / Time No Known Allergies Allergy Verified 08/04/20 11:32 Surgical History (Updated 08/04/20 @ 11:50 by Mary Reid) Hx of adenoidectomy History of esophagogastroduodenoscopy (EGD) ( 07/2020) Social History Smoking Status: Never smoker ROS Constitutional Constitutional: Reports fatigue; Denies anorexia, chills, fever(s), malaise or weakness Eyes Eyes: Denies change in vision ENT HEENT: Reports other Details: bilateral jaw swelling. ; Denies dysphagia, headache(s), nasal congestion, nasal discharge or sore throat Cardiovascular Cardiovascular: Denies dyspnea on exertion or edema Respiratory/Chest Respiratory/Chest: Denies cough, dyspnea, shortness of breath at rest or shortness of breath with exertion Gastrointestinal Gastrointestinal: Denies abdominal pain or constipation Genitourinary Genitourinary: Denies dysuria Neurologic Neurologic: Denies confusion, dizziness, focal weakness, headache(s) or numbness Psychiatric Psychiatric: Denies anxiety or depression Endocrine Endocrinology: Denies change in body appearance Hematologic/Lymphatic Hematologic/Lymphatic: Denies anemia Vital Signs Vital Signs Vital Signs: 06/02/24 09:25 06/02/24 09:37 06/02/24 10:45 Temperature 97.9 F 98.0 F 98.3 F Temperature Source Oral Oral Oral Pulse Rate 110 H 105 H 91 Respiratory Rate 20 H 16 16 Blood Pressure 127/80 H 131/88 H 127/89 H Blood Pressure Mean 95 102 101 Pulse Ox 96 96 98 Oxygen Delivery Method Room Air Room Air Room Air 06/02/24 11:00 Temperature 98.6 F Temperature Source Oral Pulse Rate 98 (more content not included)... Normal [facility] Hematocrit Auto (Bld) [Volum e fraction]Ordered By: Kevin Izquierdo on 06-02-2024 Hematocrit (Bld) [Volume fraction] 40.7 % 40-54 [facility] Hemoglobin measurementOrdere d By: Kevin Izquierdo on 06-02-2024 Hemoglobin (Bld) [Mass/Vol] 14.2 g/dL 13.0-16.5 [facility] Heterophile Ab Ql (S)Ordered By: Kevin Izquierdo on 06-02-2024 Monoscreen Negative Negative [facility] Immature granulocytes/100 WB C Auto (Bld)Ordered By: Kevin Izquierdo on 06-02-2024 Immature granulocytes/100 WBC (Bld) 0.300 % 0.0-0.9 [facility] Comment on above: IG% - Immature Granu locytes (promyelocytes, myelocytes and metamyelocytes) > 1% indicates that a LEFT SHIFT is Present. Influenza virus A and B and SARS-CoV-2 (COVID-19) and Respiratory syncytial virus RNAOrdered By: Kevin Izquierdo on 06-02-2024 SARS-CoV-2 (COVID-19) RNA MAIKEL+probe Ql (Unsp spec) Influenzae A Abnormal [facility] Lactic Acidon 06-02-2024 Lactate [Moles/Vol] mmol/L Normal 0.0-2.0 [facility] Comment on above: Order Comment: Y Performed By: #### L 500.2500, L100.0100, L503.6005, L700.5500 #### [facility] Laboratory [facility] [place], [address] Lactic acid measurementOrder ed By: Kevin Izquierdo on 06-02-2024 Lactate [Moles/Vol] mmol/L 0.0-2.0 [facility] Lymphocytes Auto (Unsp spec) [#/Vol]Ordered By: Kevin Izquierdo on 06-02-2024 Lymphocytes (Bld) [#/Vol] 0.67 10*3/uL Low 0.83-4.51 [facility] Lymphocytes/100 WBC Auto (Un sp spec)Ordered By: Kevin Izquierdo on 06-02-2024 Lymphocytes/100 WBC (Bld) 9.3 % Low 19-41 [facility] M100.677on 06-02-2024 M100.677 Negative Normal [facility] Comment on above: Performed By: #### L 500.4050 #### [facility] Laboratory [address] [place], [address] M100.678on 06-02-2024 M100.678 RESULTS CALLED TO ANDRA 06/02/24 1103 Bernadette Lisa. REPORT READ BACK BY SAME. Copy of report sent to Infection Control Printer [id number] 06/02/24 1103 [employer]. SARS-CoV-2 (COVID 19) Negative INFLUENZA A A Positive A INFLUENZA B Negative RSV PCR Negative INFLUENZAE A Normal [facility] Comment on above: Performed By: #### L 500.4050 #### [facility] Laboratory [address] [facility] [place], [place], [address] MCV (mean corpuscular volume ) determinationOrdered By: Kevin Izquierdo on 06-02-2024 MCV (RBC) [Entitic vol] 85.7 fL 80-94 [facility] Mean corpuscular hemoglobin (MCH) determinationOrdered By: Kevin Izquierdo on 06-02-2024 MCH (RBC) [Entitic mass] 29.9 pg 27.0-32.0 [facility] Mean corpuscular hemoglobin concentration (MCHC) determinationOrdered By: Kevin Izquierdo on 06-02-2024 MCHC (RBC) [Mass/Vol] 34.9 g/dL 32-36 [facility] Mean platelet volume determi nationOrdered By: Kevin Izquierdo on 06-02-2024 Platelet mean volume (Bld) [Entitic vol] 9.4 fL 6.2-12.0 [facility] Monocyte percentageOrdered B y: Kevin Izquierdo on 06-02-2024 Monocytes/100 WBC (Bld) 14.0 % High 0-10 [facility] Monoteston 06-02-2024 Monocytes (Bld) [#/Vol] Negative Normal Negative [facility] Comment on above: Performed By: #### L 500.2500, L100.0100, L503.6005, L700.5500 #### [facility] Laboratory [address] [place], [address] Neutrophil percentageOrdered By: Kevin Izquierdo on 06-02-2024 Neutrophils/100 WBC (Bld) 73.4 % High 47-70 [facility] Nucleated red blood cell per centageOrdered By: Kevin Izquierdo on 06-02-2024 Nucleated RBC/100 WBC (Bld) [Ratio] 0 % 0-5 [facility] Platelet countOrdered By: Abdoulaye Izquierdo on 06-02-2024 Platelets (Bld) [#/Vol] 281 10*3/uL 150-450 [facility] Potassium (Unsp spec) [Mass/ Vol]Ordered By: Kevin Izquierdo on 06-02-2024 Potassium [Moles/Vol] 3.8 mmol/L 3.3-5.1 [facility] RBC Auto (Bld) [#/Vol]Ordere d By: Kevin Izquierdo on 06-02-2024 RBC (Bld) [#/Vol] 4.75 10*6/uL 4.6-6.2 [facility] S. pyogenes rRNA Probe Ql (T hroat)Ordered By: Kevin Izquierdo on 06-02-2024 Streptococcus pyogenes (PCR) [facility] Serum creatinine measurement (mass/volume)Ordered By: Kevin Izquierdo on 06-02-2024 Creatinine [Mass/Vol] 0.83 mg/dL 0.70-1.20 [facility] Serum glucose measurement (m ass/volume)Ordered By: Kevin Izquierdo on 06-02-2024 Glucose [Mass/Vol] 103 mg/dL High 70-99 [facility] Serum heterophile antibody d etectionOrdered By: Kevin Izquierdo on 06-02-2024 Heterophile Ab Ql (S) Negative Negative [facility] Serum or plasma calcium catherine urement (mass/volume)Ordered By: Kevin Marti on 06-02-2024 Calcium [Mass/Vol] 9.0 mg/dL 7.6-11.0 [facility] Serum or plasma urea nitroge n measurement (mass/volume)Ordered By: Kevin Izquierdo on 06-02-2024 Urea nitrogen [Mass/Vol] 9 mg/dL 4-19 [facility] Sinus/Facial Bone WITH Contr ason 06-02-2024 Sinus/Facial Bone WITH Contras [facility] Imaging Services [facility] [place], [place] [address] Sinus/Facial Bone WITH Contras MR#: [id number] Acct: [id number] Name: ELMER PARSON Rep #: [id number] : 2000 M 24 From: Ed Simon PCP: Dr. Gilmer Cox MD Status: REG ER Study: Sinus/Facial Bone WITH Contras Date of Exam: 0 06/02/24 Exam# [id number] Ordering Dr: Kevin Izquierdo DO PROCEDURE: CT facial bones with IV contrast REASON FOR EXAM: Pain, swelling TECHNIQUE: Multiple contiguous axial images through the facial bones were obtained after the administration of intravenous contrast. Two-dimensional coronal and sagittal reformatted images were reconstructed. Low-dose imaging technique was utilized. COMPARISON: None. FINDINGS: Enlargement and hyperenhancement of the bilateral submandibular glands with moderate surrounding inflammatory changes concerning for acute sialadenitis. No evidence of sialoliths. Mild adjacent cellulitis, greater on the right. Thickening of the right platysma muscle. No discrete mucosal mass. Tongue base is satisfactory. Tonsillar pillars are within normal limits. No periodontal abscess. Globes are intact. Parotid glands are within normal limits. Multiple mildly enlarged bilateral cervical chain lymph nodes which may be reactive. Mild ethmoid sinus mucosal thickening. Remaining paranasal sinuses are clear. Mastoid air cells are clear. CT/Sinus/Facial Bone WITH Contras IMPRESSION: 1. Bilateral submandibular gland sialadenitis, likely infectious/inflammatory. 2. Mild bilateral cervical chain lymphadenopathy which may be reactive. One or more dose reduction techniques were used (e.g., Automated exposure control, adjustment of the mA and/or kV according to patient size, use of iterative reconstruction technique). [facility] CC: Dr. Kevin Izquierdo DO; Dr. Gilmer Cox MD Rock Loader: Signed Normal [facility] Sodium levelOrdered By: Dane Izquierdo on 06-02-2024 Sodium [Moles/Vol] 136 mmol/L 133-145 [facility] Soft Tissue Neck W/WO Contra ston 06-02-2024 Soft Tissue Neck W/WO Contrast [facility] Imaging Services [address] [place] [id number] Soft Tissue Neck W/WO Contrast MR#: [id number] Acct: [id number] Name: ELMER PARSON Rep #: [id number] : 2000 M 24 From: Ed Simon PCP: Dr. Gilmer Cox MD Status: REG ER Study: Soft Tissue Neck W/WO Contrast Date of Exam: 0 06/02/24 Exam# [id number] Ordering Dr: Kevin Izquierdo DO PROCEDURE: CT neck soft tissues without and with IV contrast REASON FOR EXAM: Pain, swelling TECHNIQUE: Multiple contiguous axial images through the neck soft tissues were obtained before and after the administration of intravenous contrast. Two-dimensional coronal and sagittal reformatted images were reconstructed. Low-dose imaging technique was utilized. COMPARISON: Same-day facial bone CT FINDINGS: Symmetric enlargement and enhancement of the bilateral submandibular glands with moderate surrounding inflammatory changes most consistent with acute sialadenitis. Diffuse bilateral neck fat stranding, slightly greater on the right likely related to cellulitis. No drainable abscess. Enlarged bilateral cervical chain lymph nodes which may be reactive. No sialoliths identified. No peritonsillar or retropharyngeal abscess. Airway is patent. Parotid glands and thyroid gland are intact. Globes are intact. Lung apices are clear. No acute osseous abnormality. CT/Soft Tissue Neck W/WO Contrast IMPRESSION: Acute bilateral submandibular gland sialadenitis, likely infectious/inflammatory. Diffuse neck cellulitis, greater on the right. Probable reactive bilateral cervical chain lymphadenopathy. No drainable abscess. One or more dose reduction techniques were used (e.g., Automated exposure control, adjustment of the mA and/or kV according to patient size, use of iterative reconstruction technique). Reading Location: [facility] CC: Dr. Kevin Izquierdo, DO; Dr. Gilmer Cox MD Rock Loader: Signed Normal [facility] Streptococcus pyogenes rRNA detection in throat by DNA probeOrdered By: Kevin Izuqierdo on 06-02-2024 S. pyogenes rRNA Probe Ql (Throat) [facility] White blood cell (WBC) count Ordered By: Kevin Izquierdo on 06-02-2024 WBC (Bld) [#/Vol] 7.2 10*3/uL 4.4-11.0 [facility] Anion gap in Serum or Plasma Ordered By: Gimler Cox on 05-23-2024 Anion gap [Moles/Vol] 14 mmol/L 5-15 [facility] BUN/creatinine ratioOrdered By: Gilmer Cox on 05-23-2024 Urea nitrogen/Creatinine [Mass ratio] 13.5 mg/mg 10-20 [facility] Bilirubin, totalOrdered By: Gilmer Cox on 05-23-2024 Bilirubin [Mass/Vol] 0.23 mg/dL 0.00-1.30 [facility] Carbon dioxide, total [Moles /volume] in Central venous bloodOrdered By: Gilmer Cox on 05-23-2024 CO2 [Moles/Vol] 24.2 mmol/L 21.0-32.0 [facility] Chloride assayOrdered By: Regina Cox on 03-06-2025 Chloride [Moles/Vol] 100 mmol/L 98-108 [facility] Comprehensive Metabolic Prof ilon 05-23-2024 Albumin [Mass/Vol] 4.5 g/dL Normal 3.5-5.0 [facility] Comment on above: Order Comment: Order Date: 05/23/24 Order Info: 0786-1 - CMP Performed By: #### L 500.4050 #### [facility] Laboratory [address] [place], [address] Albumin/Globulin [Mass ratio] 1.6 {ratio} Normal 0.9-2.4 [facility] Comment on above: Order Comment: Order Date: 05/23/24 Order Info: 0786-1 - CMP Performed By: #### L 500.4050 #### [facility] Laboratory [address] [place], [address] ALK PHOS 84 U/L Normal 40-129 [facility] Comment on above: Order Comment: Order Date: 05/23/24 Order Info: 0786-1 - CMP Performed By: #### L 500.4050 #### [facility] Laboratory [address] [place], [address] ALT [Catalytic activity/Vol] 28 U/L Normal <=46 [facility] Comment on above: Order Comment: Order Date: 05/23/24 Order Info: 0786-1 - CMP Performed By: #### L 500.4050 #### [facility] Laboratory [address] [place], [address] AST [Catalytic activity/Vol] 24 U/L Normal <=37 [facility] Comment on above: Order Comment: Order Date: 05/23/24 Order Info: 0786-1 - CMP Performed By: #### L 500.4050 #### [facility] Laboratory [address] [place], [address] Bilirubin [Mass/Vol] 0.23 mg/dL Normal 0.00-1.30 [facility] Comment on above: Order Comment: Order Date: 05/23/24 Order Info: 0786-1 - CMP Performed By: #### L 500.4050 #### [facility] Laboratory [address] [place], [address] BUN/CRE 13.5 RATIO Normal 10-20 [facility] Comment on above: Order Comment: Order Date: 05/23/24 Order Info: 0786-1 - CMP Performed By: #### L 500.4050 #### [facility] Laboratory [address] [place], [address] Calcium [Mass/Vol] 9.1 mg/dL Normal 7.6-11.0 [facility] Comment on above: Order Comment: Order Date: 05/23/24 Order Info: 0786-1 - CMP Performed By: #### L 500.4050 #### [facility] Laboratory [address] [place], [address] Chloride [Moles/Vol] 100 mmol/L Normal 98-108 [facility] Comment on above: Order Comment: Order Date: 05/23/24 Order Info: 0786-1 - CMP Performed By: #### L 500.4050 #### [facility] Laboratory [address] [place], [address] CO2 [Moles/Vol] 24.2 mmol/L Normal 21.0-32.0 [facility] Comment on above: Order Comment: Order Date: 05/23/24 Order Info: 0786-1 - CMP Performed By: #### L 500.4050 #### [facility] Laboratory [address] [place], [address] Creatinine [Mass/Vol] 0.87 mg/dL Normal 0.70-1.20 [facility] Comment on above: Order Comment: Order Date: 05/23/24 Order Info: 0786-1 - CMP Performed By: #### L 500.4050 #### [facility] Laboratory [address] [place], [address] GAP 14 Normal 5-15 [facility] Comment on above: Order Comment: Order Date: 05/23/24 Order Info: 0786-1 - CMP Performed By: #### L 500.4050 #### [facility] Laboratory [address] [place], [address] GFR/1.73 sq M.predicted among non-blacks MDRD (S/P/Bld) [Vol rate/Area] 124 mL/min/{1.73_m2} Normal >60 [facility] Comment on above: Order Comment: Order Date: 05/23/24 Order Info: 0786-1 - CMP Result Comment: mL/m in/1.73m2 CKD-EPI Creatinine Equation (2020) Performed By: #### L 500.4050 #### [facility] Laboratory [address] [place], [address] Globulin (S) [Mass/Vol] 2.8 g/dL Normal 2.2-4.2 [facility] Comment on above: Order Comment: Order Date: 05/23/24 Order Info: 0786-1 - CMP Performed By: #### L 500.4050 #### [facility] Laboratory [address] [place], [address] Glucose [Mass/Vol] 87 mg/dL Normal 70-99 [facility] Comment on above: Order Comment: Order Date: 05/23/24 Order Info: 0786-1 - CMP Performed By: #### L 500.4050 #### [facility] Laboratory [address] [place], [address] Potassium [Moles/Vol] 3.6 mmol/L Normal 3.3-5.1 [facility] Comment on above: Order Comment: Order Date: 05/23/24 Order Info: 0786-1 - CMP Performed By: #### L 500.4050 #### [facility] Laboratory [address] [place], [address] Sodium [Moles/Vol] 138 mmol/L Normal 133-145 [facility] Comment on above: Order Comment: Order Date: 05/23/24 Order Info: 0786-1 - CMP Performed By: #### L 500.4050 #### [facility] Laboratory [address] [place], [address] T PROT 7.3 g/dL Normal 5.9-8.4 [facility] Comment on above: Order Comment: Order Date: 05/23/24 Order Info: 0786-1 - CMP Performed By: #### L 500.4050 #### [facility] Laboratory [address] [place], [address] Urea nitrogen [Mass/Vol] 12 mg/dL Normal 4-19 [facility] Comment on above: Order Comment: Order Date: 05/23/24 Order Info: 0786-1 - CMP Performed By: #### L 500.4050 #### [facility] Laboratory [address] [place], [address] GFR/1.73 sq M.predicted daniele g non-blacks MDRD (S/P/Bld) [Vol rate/Area]Ordered By: Gilmer Cox on 05-23-2024 Estimated GFR (MDRD) Non-Af Amer 124 >60 [facility] Comment on above: mL/min/1.73m2 CKD-EP I Creatinine Equation (2020) Glomerular filtration rate ( GFR) estimation/1.73 sq m using serum, plasma, or whole bOrdered By: Gilmer Cox on 05-23-2024 GFR/1.73 sq M.predicted among non-blacks MDRD (S/P/Bld) [Vol rate/Area] 124 mL/min/{1.73_m2} >60 [facility] Comment on above: mL/min/1.73m2 CKD-EP I Creatinine Equation (2020) L506.1001on 05-23-2024 Vitamin D 25-OH 13.5 ng/mL Low 30-100 [facility] Comment on above: Order Comment: Order Date: 01/09/24 Order Info: [id number] - VITD25 Result Comment: Keisha min D Status Deficiency: <20 ng/mL (50nmol/L) Insufficiency: 20-30 ng/mL (50-75 nmol/L) Sufficiency: 30-100 ng/mL (75-250 nmol/L) Toxicity: >100 ng/mL (>250 nmol/L) Performed By: #### L 506.1000 #### [facility] [place], [address] Laboratory - Chemistry and C hemistry - challengeOrdered By: Gilmer Cox on 05-23-2024 AST [Catalytic activity/Vol] 24 U/L <38 [facility] Potassium (Unsp spec) [Mass/ Vol]Ordered By: Gilmer Cox on 05-23-2024 Potassium [Moles/Vol] 3.6 mmol/L 3.3-5.1 [facility] Potassium measurement (mass/ volume)Ordered By: Gilmer Cox on 05-23-2024 Potassium (Unsp spec) [Mass/Vol] 3.6 mmol/L 3.3-5.1 [facility] Serum creatinine measurement (mass/volume)Ordered By: Gilmer Cox on 05-23-2024 Creatinine [Mass/Vol] 0.87 mg/dL 0.70-1.20 [facility] Serum globulin measurementOr dered By: Gilmer Cox on 05-23-2024 Globulin (S) [Mass/Vol] 2.8 g/dL 2.2-4.2 [facility] Serum glucose measurement (m ass/volume)Ordered By: Gilmer Cox on 05-23-2024 Glucose [Mass/Vol] 87 mg/dL 70-99 [facility] Serum or plasma alanine bush otransferase (ALT) measurementOrdered By: Gilmer Cox on 05-23-2024 ALT [Catalytic activity/Vol] 28 U/L <47 [facility] Serum or plasma albumin catherine urement (mass/volume)Ordered By: Gilmer Cox on 05-23-2024 Albumin [Mass/Vol] 4.5 g/dL 3.5-5.0 [facility] Serum or plasma albumin/glob ulin mass ratioOrdered By: Gilmer Cox on 05-23-2024 Albumin/Globulin [Mass ratio] 1.6 {ratio} 0.9-2.4 [facility] Serum or plasma alkaline ann marie sphatase measurementOrdered By: Gilmer Cox on 05-23-2024 ALP [Catalytic activity/Vol] 84 U/L 40-129 [facility] Serum or plasma calcium catherine urement (mass/volume)Ordered By: Gilmer Cox on 05-23-2024 Calcium [Mass/Vol] 9.1 mg/dL 7.6-11.0 [facility] Serum or plasma urea nitroge n measurement (mass/volume)Ordered By: Gilmer Cox on 05-23-2024 Urea nitrogen [Mass/Vol] 12 mg/dL 4-19 [facility] Sodium levelOrdered By: Gilmer Cox on 05-23-2024 Sodium [Moles/Vol] 138 mmol/L 133-145 [facility] Total proteinOrdered By: Fili Cox on 05-23-2024 Protein [Mass/Vol] 7.3 g/dL 5.9-8.4 [facility] Vitamin D, 25-hydroxyOrdered By: Gilmer Cox on 05-23-2024 Vitamin D 25-Hydroxy 13.5 ng/mL Low 30-100 [facility] Comment on above: Vitamin D StatusDefi ciency: <20 ng/mL (50nmol/L)Insufficiency: 20-30 ng/mL (50-75 nmol/L)Sufficiency: 30-100 ng/mL (75-250 nmol/L)Toxicity: >100 ng/mL (>250 nmol/L) Vitamin D,25 Hydroxyon 01-08 Vitamin D 25-OH 11.1 ng/mL Normal [facility] Comment on above: Order Comment: Order Date: 01/09/24 Order Info: [id number] - [id number] Result Comment: Keisha min D 25(OH) Status Range Deficiency <20 ng/mL (50nmol/L) Insufficiency 20 - 30 ng/mL (50 - 75 nmol/L) Sufficiency 30 - 100 ng/mL (75 - 250 nmol/L) Toxicity >100 ng/mL (>250 nmol/L) Performed By: #### L [phone] #### [facility] Laboratory [facility] [place], [address] Progress Noteon 12-21-2021 Paper Sample Clerk Authentication Interface Message Text Patient ID: Elmer Parson is a 21 y.o. male. His chief complaint(s) include: Medication Refill Assessment 1. ADHD (attention deficit hyperactivity disorder), combined type 2. Anxiety 3. Need for vaccination Plan Elmer was seen today for medication refill. Diagnoses and all orders for this visit: ADHD (attention deficit hyperactivity disorder), combined type Anxiety Need for vaccination - Influenza Vaccine 0.5 mL >= 6 mo Quadrivalent (PF) Return if symptoms worsen or fail to improve. Will work on getting a little more structure/better schedule into Elmer's daily routine and helping him find a community ([employer], [employer] group, etc) to have somewhere that he feels he belongs. If still noticing agitation/temper issues after these changes, will consider medication adjustment. Mom to call if any questions/concerns. Subjective HPI Comments: MGF recently . Mom started a new job. Lots of changes at home the past few months. Elmer has been having a little more trouble with temper/agitation recently. Will get agitated if mom doesn't respond right away or if his phone is too slow. Threw his phone earlier when he was frustrated. Sometimes forgetful. Will go to [employer] football games and sometimes the [employer] kids are mean. He is trying to find where he fits in. Doesn't have a great community/group since he graduated high school. Work is going well, still at [employer]. Eating and sleeping well. Stays up late sometimes then gets up early, watches tv, and then goes back to bed. Not a lot of structure at home when mom is at work. Mom is trying to get him back on a schedule with going to [employer] during the day. He is accompanied by his mother. Independent history obtained from mother. Medication Refill The patient's symptoms have included no fatigue, no fever, no fussiness and no difficulty sleeping. Primary Care Review of Systems Objective Vital Signs 12/21/21 1623 12/21/21 1705 BP: (!) 145/92 125/89 Pulse: 79 80 Weight: (!) 103.5 kg Height: 175.6 cm Body mass index is 33.57 kg/m . Physical Exam Constitutional: He appears well. He is active. No distress. HENT: Head: Atraumatic. Nose: No nasal discharge. Mouth/Throat: Mucous membranes are moist. No pharynx erythema. Eyes: Conjunctivae and EOM are normal. Pupils are equal, round, and reactive to light. Neck: Neck supple. Cardiovascular: Normal rate and regular rhythm. Heart murmur not heard. Pulmonary/Chest: Effort normal and breath sounds normal. There is normal air entry. No respiratory distress. He has no wheezes. He has no rhonchi. He has no rales. Abdominal: Soft. There is no abdominal tenderness. Musculoskeletal: Cervical back: Normal range of motion and neck supple. Lymphadenopathy: No right anterior and posterior cervical adenopathy present. No left anterior and posterior cervical adenopathy present. Neurological: He is alert. He exhibits normal muscle tone. Skin: Capillary refill takes less than 3 seconds. Skin is warm. Skin is not pale. Findings: No rash. Vitals reviewed: Blood pressure 125/89, pulse 80, height 175.6 cm, weight (!) 103.5 kg. Normal [facility] Progress Noteon 07-12-2021 Paper Sample Clerk Authentication Interface Message Text Patient ID: Elmer Parson is a 21 y.o. male. His chief complaint(s) include: 21 YEAR WELL CHILD and ADHD Follow-up (Med ck) Assessment 1. Routine general medical examination at a health care facility 2. ADHD (attention deficit hyperactivity disorder), combined type 3. Anxiety in pediatric patient 4. Mild intellectual disability 5. Eczema, unspecified type Plan Elmer was seen today for 21 year well child and adhd follow-up. Diagnoses and all orders for this visit: Routine general medical examination at a health care facility - PHQ9 Assessment With Score - Health Risk Assessment - CRAFFT ADHD (attention deficit hyperactivity disorder), combined type Anxiety in pediatric patient Mild intellectual disability Eczema, unspecified type Return in about 1 year (around 07/12/2022) for well check. Doing well. Discussed healthy diet, working on decreasing soda intake and increasing water intake- will try to go down to 3 sodas per day now then will decrease further once doing well with this. Discussed working on being active this summer. Doing well on his meds, will call/message when needing refills. Discussed eczema treatment (lotion multiple times per day, hydrocortisone cream BID as needed). Subjective HPI Comments: Some dry patches on wrist, thumb, neck. Maybe a little itchy, not bad. Using lotion on it. Going for his driving test next month. Doing well on his concerta and zoloft. No concerns. He is accompanied by his mother. Independent history obtained from mother. 21 YEAR WELL CHILD Complications after delivery: parental limits and consequences for unacceptable behavior Home: Elmer eats meals with family, has an adult to turn to for help and is permitted and able to make independent decisions. Elmer lives with family. Education: Elmer is a highschool graduate. (Working at [employer]. Doing some training of new workers. Works a lot with [employer]. ). Eating: Elmer eats regular meals including fruits and vegetables (some junk food. likes clementines, apples, bananas. Likes lettuce/salads, cucumbers) and has a calcium source (some cheese). Elmer does not drink non-sweetened liquids (drinks 4-5 sodas per day, a little water). Activities & Sports: (Likes to golf, likes to go for walks, videogames). Drugs: Elmer does not use tobacco, does not use drugs, does not use alcohol and does not vape. Safety: Elmer has a violence free home and has peer relationships free from violence. Sex: The patient has never had a sexual partner. Suicidality: Elmer has ways to cope with stress and displays self-confidence. Elmer has no problems with sleep, has no depression, has no anxiety, does not have mood swings and has no suicidal ideation. PHQ-9 Score: 2 Output Urine and Stool Pattern: Urine and Stool Pattern: Normal stool pattern, normal urine pattern. Sleep Sleeping Difficulty: no difficulty sleeping Teen Anticipatory Guidance The following anticipatory guidance was reviewed during the visit: Nutrition: limit junk food/fast food and soft drinks. Safety: home safety. Social: parental limits and consequences for unacceptable behavior. Health: age appropriate dental care, age appropriate sleep habits, avoid situations where drugs and alcohol are present and talk with trusted adult if feeling sad or nervous. Screenings Previous Vaccine Reactions: No. Life events information was reviewed-no referral needed (social determinants screen negative) Tuberculosis Concerns: Negative Tuberculosis Screen Concerns: no TB Risk Factors Hearing Vision Concerns: The caregiver has no concerns about the patient's hearing. The caregiver has no concerns about the patient's vision. Hyperlipidemia Concerns: Negative Hyperlipidemia Screen Concerns: no parent or grandparent with PA angina peripheral or cerebrovascular disease <55 years, no parent or grandparent with sudden cardiac <55 years and no parent with cholesterol >240mg/dl ADHD Follow-up Primary Care Review of Systems Objective Vital Signs 07/12/21 0859 07/12/21 0902 BP: (!) 141/82 (!) 141/86 Pulse: 97 66 Weight: (!) 104 kg Height: 176.4 cm Body mass index is 33.42 kg/m . Physical Exam Constitutional: He appears well. He is active. No distress. HENT: Head: Atraumatic. Ears: Right Ear: Tympanic membrane and external ear normal. Left Ear: Tympanic membrane and external ear normal. Nose: Nose normal. No nasal discharge. Mouth/Throat: Mucous membranes are moist. Dentition is normal. No pharynx erythema. Oropharynx is clear. Eyes: Conjunctivae and EOM are normal. No strabismus. Pupils are equal, round, and reactive to light. Neck: Neck supple. Thyroid normal. Cardiovascular: Normal rate, regular rhythm, S1 normal and S2 normal. Pulses are palpable. Heart murmur not heard. Pulmonary/Chest: Effort normal and breath sounds normal. No respiratory distress. He has no whee (more content not included)... Normal [facility] OBSOLETEon 10-22-2020 OBSOLETE Refill (ALLMED) ELMER PARSON ([id number]) 2 M Date Time Provider Department 10/22/20 SILVIA BRITO During your visit today, we recorded the following information about you: Celeste Vee RN 10/22/2020 12:36 PM Signed KARIS 09-29-20 Patient phones requesting refills as follows: Pending Prescriptions Disp Refills OMEPRAZOLE 40 MG CAPSULE,DELAYED RELEASE 60 capsule 11 Sig: TAKE 1 CAPSULE BY MOUTH TWICE DAILY. TAKE 30 TO 60 MINUTES BEFORE BREAKFAST AND BEFORE DINNIER. ADOLFO: Yes Please review and advise. Celeste Vee RN Allergies As of Date: 10/22/2020 Noted Allergy Reaction SEASONAL ALLERGIES 09/29/2020 14 - Other: See Comments Comments: Cats, dogs, molds, trees, grasses, weeds, ragweed Date Reviewed: 09/30/2020 Reviewed by: Silvia Brito MD - Fully Assessed Reason for Visit: Refill Request [94] Order(s):omeprazole (PRILOSEC) 40 mg capsuleTAKE 1 CAPSULE BY MOUTH TWICE DAILY. TAKE 30 TO 60 MINUTES BEFORE BREAKFAST AND BEFORE DINNIER.Disp: 60 capsuleRfl: 11 Prescriptions as of 10/22/2020 - omeprazole (PRILOSEC) 40 mg capsule TAKE 1 CAPSULE BY MOUTH TWICE DAILY. TAKE 30 TO 60 MINUTES BEFORE BREAKFAST AND BEFORE DINNIER. - Cetirizine (ZYRTEC) 10 mg cap Take by mouth as needed. - montelukast (SINGULAIR) 10 mg tablet Take 10 mg by mouth as needed. - sertraline (ZOLOFT) 100 mg tablet Take 100 mg by mouth once daily. - methylphenidate HCl (CONCERTA ORAL) Take 72 mg by mouth once daily. Problem List As Of Date 10/22/2020 Noted Resolved Eosinophilic esophagitis [K20.0] 09/29/2020 Allergic rhinitis due to animal (cat) (dog) heidy*09/29/2020 Allergic rhinitis due to fungal spores [J30.89] 09/29/2020 Seasonal allergic rhinitis due to pollen [J30.1]09/29/2020 Prescriptions ordered this encounter Disp Refills Start End OMEPRAZOLE 40 MG CAPSULE,DELAYED REL* 60 c* 11 10/22/2020 Route: ORAL Sig: TAKE 1 CAPSULE BY MOUTH TWICE DAILY. TAKE 30 TO 60 MINUTES BEFORE BREAKFAST AND BEFORE DINNIER. Medications Discontinued During This Encounter Prescriptions - omeprazole (PRILOSEC) 40 mg capsule (Discontinued) Take 1 capsule by mouth twice daily. Take 30 to 60 minutes before breakfast and before dinnier. Encounter Status:Closed by SILVIA BRITO on 10/22/20 [facility] CNCOon 09-30-2020 CNCO Letter Text [facility] CNOVon 09-29-2020 CNOV Office Visit (ALLMED ) ELMER PARSON ([id number]) 2 M Date Time Provider Department 09/29/20 2:00 PM SILVIA BRITO During your visit today, we recorded the following information about you: Pulse Blood pressure Weight 102/minute 125/85 103 kg Silvia Brito MD 09/30/2020 10:17 AM Addendum This is a consultation requested by Dr. Dewitt for an allergy and immunology evaluation. My final recommendations will be communicated back to the requesting healthcare provider(s) by way of shared medical record or via U.[place]. mail. Elmer Parson is a 20 year old male who presents for further evaluation of eosinophilic esophagitis. He has a several month history of difficulty swallowing. In July, he presented to the emergency room when a piece of chicken got stuck in his esophagus. This passed spontaneously when he drank Coca-Cola. 2 to 3 days later, a Concerta pill became impacted in the esophagus. He presented to the emergency room and underwent endoscopy. A moderately severe stenosis was noted 20 cm from the incisors and was dilated. He then took a proton pump inhibitor for 1 month. He underwent a repeat EGD 3 weeks after the ER visit. Per the records, gross findings on EGD were normal. 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 Negative for H. pylori. The number of eosinophils per high-power field was not noted on these reports. He has never experienced a severe immediate reaction such as urticaria, angioedema, respiratory distress, lightheadedness or loss of consciousness associated with ingestion of specific foods. He denies GERD symptoms. Denies diarrhea, melena and hematochezia. He also has symptoms of clear rhinorrhea, nasal congestion, sneezing, postnasal drip. Associated symptoms include cough . These symptoms are perennial with seasonal exacerbation in the spring and fall. Current triggers include exposure to cat and dog. The patient has been suffering from these symptoms for several year(s). The patient uses Flonase, Singulair and Zyrtec as needed with good control of symptoms. No prior allergy testing or allergy immunotherapy. He complains of skin rash occurring on his elbows, dorsal hands and knees in the spring and summer. Rash is described as red raised mildly pruritic and persistent bumps. REVIEW OF SYSTEMS: SINUSITIS: The patient does not suffer from frequent sinopulmonary infections. ASTHMA: The patient has no history of asthma. ECZEMA: The patient has no history of eczema. URTICARIA:The patient does not have a history of urticaria and/or angioedema. GERD: The patient does not have a history of GERD. INSECT STING: The patient does not have a history of systemic reaction to insect sting. FOOD ALLERGY:The patient denies history of food allergy. LATEX: The patient does not have a history of adverse reaction to latex. All other review of systems negative except for those listed above. PAST MEDICAL HISTORY Diagnosis Date - ADHD mild congnitive disabilities and autistic tendencies MEDICATIONS: Cetirizine (ZYRTEC) 10 mg cap Take by mouth as needed. montelukast (SINGULAIR) 10 mg tablet Take 10 mg by mouth as needed. sertraline (ZOLOFT) 100 mg tablet Take 100 mg by mouth once daily. methylphenidate HCl (CONCERTA ORAL) Take 72 mg by mouth once daily. ALLERGIES: Allergies As of Date: 09/29/2020 Allergen Noted Reaction SEASONAL ALLERGIES 09/29/2020 Other: See Comments Fully Assessed 09/29/2020 PAST SURGICAL HISTORY Procedure Laterality Date - ADENOIDECTOMY HX - PAST SURGICAL HISTORY OF wisdom teeth removal FAMILY HISTORY: Allergic rhinitis:yes: mom. Asthma: yes: mom. Eczema: no. Cystic fibrosis: no. Immunodeficiency: no. SOCIAL HISTORY: Employer And Job Title: None on file Years Of Education Completed: Not specified Marital Status: Single Social History Tobacco Use Smoking status: Never Smoker Smokeless tobacco: Never Used ENVIRONMENTAL HISTORY: Lives in a house Age of home: 15 years Heating: gas Woodburning fireplace in the home: no Air conditioning: Central air Basement: Damp basement. No visible mold. Lluvia: Krod-ih-ggyk carpeting Dust mite controls: Dust mite controls are already in place on mattress. . Pets in the home: 1 dogs Outdoor animals: There are no outdoor animals Tobacco smoke: No exposure in the home. Physical Exam: GENERAL APPEARANCE:Well appearing, alert, in no acute distress, well-hydrated, well nourished. HEENT: NCAT. EYES: conjunctiva and sclera normal. EARS: External ears normal. Canals clear. TM's normal. NOSE/SINUS: mild edema of the nasal mucosa with scant clear secretions bilaterally THROAT: no erythema NECK:neck supple, no adenopathy HEART:RRR with normal S1 and S2 ,no murmurs, no gallops, no (more content not included)... Normal [facility] 09[facility]29-2020 [facility] ELMER PARSON ([id number]) 2 M Date Time Provider Department 09/29/20 SILVIA BRITO During your visit today, we recorded the following information about you: Celeste Vee RN 09/29/2020 4:16 PM Signed Patient's mom asking for a closer GI referral than [facility] [place], even if it isn't [facility] physician. They are from [place]. Please advise. Silvia Brito MD 09/29/2020 4:32 PM Signed I had recommended Dr. Cleaning during their visit today, but he can see any transportation analyst. MD Celeste Vogel RN 09/29/2020 4:38 PM Signed Left detailed message on cell. Allergies As of Date: 09/29/2020 Noted Allergy Reaction SEASONAL ALLERGIES 09/29/2020 14 - Other: See Comments Date Reviewed: 09/29/2020 Reviewed by: Silvia Brito MD - Fully Assessed Reason for Visit: GI referral [Other] Prescriptions as of 09/29/2020 - Cetirizine (ZYRTEC) 10 mg cap Take by mouth as needed. - montelukast (SINGULAIR) 10 mg tablet Take 10 mg by mouth as needed. - sertraline (ZOLOFT) 100 mg tablet Take 100 mg by mouth once daily. - methylphenidate HCl (CONCERTA ORAL) Take 72 mg by mouth once daily. - omeprazole (PRILOSEC) 40 mg capsule Take 1 capsule by mouth twice daily. Take 30 to 60 minutes before breakfast and before dinnier. Problem List As Of Date: 09/29/2020 (None) Encounter Status:Closed by CELESTE VEE RN on 09/29/20 Normal [facility] Vital Signs Date Time Vital Sign Value Performing Clinician Faci lity 06-03-2024 13:10-0400 Body temperature 97.9 [degF] Dr. Gilmer Cox MD Work Phone: [facility] 06-03-2024 13:10-0400 Diastolic blood pressure 84 mm[Hg] Dr. Gilmer Cox MD Work Phone: [facility] 06-03-2024 13:10-0400 Heart rate 98 /min Dr. Gilmer Cox MD Work Phone: [facility] 06-03-2024 13:10-0400 Respiratory rate 18 /min Dr. Gilmer Cox MD Work Phone: [facility] 06-03-2024 13:10-0400 SaO2% (BldA) [Mass fraction] 97 % Dr. Gilmer Cox MD Work Phone: [facility] 06-03-2024 13:10-0400 Systolic blood pressure 121 mm[Hg] Dr. Gilmer Cox MD Work Phone: [facility] 06-02-2024 14:22-0400 Body height 177.[address] Gilmer Cox MD Work Phone: [facility] 06-02-2024 14:22-0400 Body mass index (BMI) [Ratio] 30.5 kg/m2 Dr. Gilmer Cox MD Work Phone: [facility] 06-02-2024 14:22-0400 Body weight 96.[address] Gilmer Cox MD Work Phone: [facility] 06-02-2024 13:09-0400 Body temperature 98.3 [degF] Dr. Gilmer Cox MD Work Phone: [facility] 06-02-2024 13:09-0400 Diastolic blood pressure 89 mm[Hg] Dr. Gilmer Cox MD Work Phone: [facility] 06-02-2024 13:09-0400 Heart rate 90 /min Dr. Gilmer Cox MD Work Phone: [facility] 06-02-2024 13:09-0400 Respiratory rate 19 /min Dr. Gilmer Cox MD Work Phone: [facility] 06-02-2024 13:09-0400 SaO2% (BldA) [Mass fraction] 98 % Dr. Gilmer Cox MD Work Phone: [facility] 06-02-2024 13:09-0400 Systolic blood pressure 123 mm[Hg] Dr. Gilmer Cox MD Work Phone: [facility] 06-02-2024 09:25-0400 Body height 180.[address] Gilmer Cox MD Work Phone: [facility] 06-02-2024 09:25-0400 Body mass index (BMI) [Ratio] 29.5 kg/m2 Dr. Gilmer Cox MD Work Phone: [facility] 06-02-2024 09:25-0400 Body weight 96.[address] Gilmer Cox MD Work Phone: [facility] Encounters Encounter Date Encounter Type Care Provider Facility Start: 12-05-2024 End: 12-05-[address] Gilmer Cox MD Work Phone: [facility]: 12-05-2024 End: 12-05-[address] Gilmer Cox MD -Laboratory [facility] Start: 12-05-2024 End: 12-05-2024 ambulatory Gilmer Cox Facility:[facility] Start: 07-16-2024 End: 07-16-[address] Gilmer Cox MD Work Phone: [facility] Work Phone: Start: 07-16-2024 End: 07-16-[address] Gilmer Cox MD -Laboratory, [place] Work Phone: Start: 07-16-2024 End: 07-16-2024 ambulatory Gilmer Cox Facility:[facility] Start: 06-03-2024 Non-patient / Non-visit Dr. Oralia Perry MD -[place] [facility] Work Phone: Start: 06-02-2024 End: 06-03-2024 ambulatory Gilmer Cox Facility:[facility] Start: 06-02-2024 End: 06-03-2024 Evaluation and management of inpatient Dr. Oralia Perry MD -Progressive Care Unit Work Phone: Start: 06-02-2024 End: 06-03-[address] Gilmer Cox MD Work Phone: [facility] Work Phone: Start: 05-23-2024 End: 05-23-[address] Gilmer Cox MD Work Phone: [facility] Work Phone: Start: 05-23-2024 End: 05-23-[address] [facility]: 05-23-2024 End: 05-23-2024 ambulatory Gilmer Cox Facility:[facility] Start: 05-21-2024 ambulatory Gilmer Cox Facilit y:[facility] Start: 01-09-2024 End: 01-09-2024 ambulatory Gilmer Cox Facility:[facility] Start: 12-21-2021 End: 12-21-2021 ambulatory GUERO WEBSTER [facility] Start: 07-12-2021 End: 07-12-2021 ambulatory SELF REFERRED [facility] Procedures Date Procedure Procedure Detail Performing Clinician Start: 12-05-2024 Vitamin D, 25-hydrox y measurement Dr. Gilmer Cox MD Work Phone: Comment on above: Vitamin D StatusDefi ciency: <20 ng/mL (50nmol/L)Insufficiency: 20-30 ng/mL (50-75 nmol/L)Sufficiency: 30-100 ng/mL (75-250 nmol/L)Toxicity: >100 ng/mL (>250 nmol/L) Start: 07-16-2024 Vitamin D, 25-hydrox y measurement Dr. Gilmer Cox MD Work Phone: Comment on above: Vitamin D StatusDefi ciency: <20 ng/mL (50nmol/L)Insufficiency: 20-30 ng/mL (50-75 nmol/L)Sufficiency: 30-100 ng/mL (75-250 nmol/L)Toxicity: >100 ng/mL (>250 nmol/L) Start: 06-03-[address] Gilmer Cox MD Work Phone: Start: 06-02-[address] Gilmer Cox MD Work Phone: Start: 06-02-2024 SARS-CoV-2, Influenz a & RSV (PCR) Dr. Gilmer Cox MD Work Phone: Start: 06-02-2024 Streptococcus pyogen es rRNA assay Dr. Gilmer Cox MD Work Phone: Start: 06-02-2024 CT of facial bones w ith contrast Dr. Gilmer Cox MD Work Phone: Start: 06-02-2024 CT of soft tissues o f neck with contrast Dr. Gilmer Cox MD Work Phone: Start: 06-02-2024 X-ray of chest, PA a nd lateral views Dr. Gilmer Cox MD Work Phone: Start: 05-23-2024 Vitamin D, 25-hydrox y measurement Dr. Gilmer Cox MD Work Phone: Comment on above: Vitamin D StatusDefi ciency: <20 ng/mL (50nmol/L)Insufficiency: 20-30 ng/mL (50-75 nmol/L)Sufficiency: 30-100 ng/mL (75-250 nmol/L)Toxicity: >100 ng/mL (>250 nmol/L) Plan of Treatment Date Care Activity Detail Author Start: 06-03-2024 Patient discharge [facility] Start: 06-03-2024 Respiratory secretion precautions [facility] Start: 06-02-2024 Following clinical pathway protocol [facility] Start: 06-02-2024 Assessment of risk of venous thromboembolism [facility] Start: 06-02-2024 Insertion of catheter into peripheral vein [facility] Start: 06-02-2024 Measuring intake and output [facility] Start: 06-02-2024 Oxygen therapy [facility] Start: 06-02-2024 Providing care according to standard [facility] Start: 06-02-2024 Provision of activity privileges [facility] Start: 06-02-2024 [facility] Start: 06-02-2024 Bacteria identified in Blood by Culture Blood Culture [facility] Start: 06-02-2024 Hospital admission, emergency, from emergency room, medical nature [facility] Start: 06-02-2024 Verification routine [facility] Start: 06-02-2024 Admission procedure [facility] Start: 06-02-2024 [facility] Start: 06-02-2024 [facility] Patient Education ED Salivary Gl and Infection [facility] Work Phone: Patient referral [facility] Work Phone: Immunizations Immunization Date Immunization Notes Care Provider [facility] 01-19-2024 influenza, injectabl e, quadrivalent, preservative free Dr. Gilmer Cox MD Work Phone: [facility] 01-24-2023 influenza, injectabl e, quadrivalent, preservative free Dr. Gilmer Cox MD Work Phone: [facility] 02-18-2022 Covid Moderna Bivale nt Booster Dr. Gilmer Cox MD Work Phone: [facility] 02-18-2022 Influenza, injectabl e, Madin Patrizia Canine Kidney, preservative free, quadrivalent Dr. Gilmer Cox MD Work Phone: [facility] 12-21-2021 influenza, injectabl e, quadrivalent, preservative free Dr. Gilmer Cox MD Work Phone: [facility] 06-19-2021 diphtheria, tetanus toxoids and acellular pertussis vaccine Dr. Gilmer Cox MD Work Phone: [facility] 02-26-2021 Covid (Moderna) Dr. Gilmer porter MD Work Phone: [facility] 01-06-2021 Covid (Pfizer) Dr. Gilmer perrin MD Work Phone: [facility] 01-06-2021 influenza, injectabl e, quadrivalent, preservative free Dr. Gilmer oCx MD Work Phone: [facility] 07-30-2020 Covid (Moderna) Dr. Gilmer porter MD Work Phone: [facility] 07-02-2020 Covid (Moderna) Dr. Gilmer porter MD Work Phone: [facility] 03-24-2020 meningococcal B vacc ine, fully recombinant Dr. Gilmer Cox MD Work Phone: [facility] 2020 influenza, injectabl e, quadrivalent, preservative free Dr. Gilmer Cox MD Work Phone: [facility] 02-04-2019 influenza, injectabl e, quadrivalent, preservative free Dr. Gilmer Cox MD Work Phone: [facility] 09-25-2018 Human Papillomavirus 9-valent vaccine Dr. Gilmer Cox MD Work Phone: [facility] 09-25-2018 meningococcal B vacc ine, fully recombinant Dr. Gilmer Cox MD Work Phone: [facility] 09-25-[address] Gilmer Cox MD Work Phone: [facility] 01-31-2018 hepatitis A vaccine, pediatric/adolescent dosage, [address] Gilmer Cox MD Work Phone: [facility] 01-31-2018 Human Papillomavirus 9-valent vaccine Dr. Gilmer Cox MD Work Phone: [facility] 01-31-2018 meningococcal polysaccharide (groups A, C, Y and W-135) diphtheria toxoid conjugate vaccine (MCV4P) Dr. Gilmer Cox MD Work Phone: [facility] 01-07-2017 influenza, injectabl e, quadrivalent, preservative free Dr. Gilmer Cox MD Work Phone: [facility] 10-26-2016 hepatitis A vaccine, pediatric/adolescent dosage, [address] Gilmer Cox MD Work Phone: [facility] 10-26-2016 Human Papillomavirus 9-valent vaccine Dr. Gilmer Cox MD Work Phone: [facility] 01-02-2016 influenza, injectabl e, quadrivalent, preservative free Dr. Gilmer Cox MD Work Phone: [facility] 12-22-2014 influenza, injectabl e, quadrivalent, preservative free Dr. Gilmer Cox MD Work Phone: [facility] 01-15-2014 influenza, injectabl e, quadrivalent, preservative free Dr. Gilmer Cox MD Work Phone: [facility] 06-19-2013 meningococcal polysaccharide (groups A, C, Y and W-135) diphtheria toxoid conjugate vaccine (MCV4P) Dr. Gilmer Cox MD Work Phone: [facility] 06-19-2013 tetanus toxoid, redu julian diphtheria toxoid, and acellular pertussis vaccine, adsorbed Dr. Gilmer Cox MD Work Phone: [facility] 01-09-2013 influenza, injectabl e, quadrivalent, preservative free Dr. Gilmer Cox MD Work Phone: [facility] 12-31-2011 influenza, injectabl e, quadrivalent, preservative free Dr. Gilmer Cox MD Work Phone: [facility] 01-15-2011 influenza, injectabl e, quadrivalent, preservative free Dr. Gilmer Cox MD Work Phone: [facility] 02-15-2010 influenza, injectabl e, quadrivalent, preservative free Dr. Gilmer Cox MD Work Phone: [facility] 01-09-2010 influenza, injectabl e, quadrivalent, preservative free Dr. Gilmer Cox MD Work Phone: [facility] 09-13-2006 diphtheria, tetanus toxoids and acellular pertussis vaccine Dr. Gilmer Cox MD Work Phone: [facility] 09-13-2006 measles, mumps and rubella virus vaccine Dr. Gilmer Cox MD Work Phone: [facility] 09-13-2006 poliovirus vaccine, inactivated Dr. Gilmer Cox MD Work Phone: [facility] 07-08-2002 diphtheria, tetanus toxoids and acellular pertussis vaccine Dr. Gilmer Cox MD Work Phone: [facility] 07-08-2002 haemophilus influenz ae type b conjugate and Hepatitis B vaccine Dr. Gilmer Cox MD Work Phone: [facility] 04-03-2002 measles, mumps and rubella virus vaccine Dr. Gilmer Cox MD Work Phone: [facility] 04-03-2002 poliovirus vaccine, inactivated Dr. Gilmer Cox MD Work Phone: [facility] 04-03-[address] Gilmer Cox MD Work Phone: [facility] 2001 diphtheria, tetanus toxoids and acellular pertussis vaccine Dr. Gilmer Cox MD Work Phone: [facility] 2001 haemophilus influenz ae type b vaccine, PRP-T conjugate Dr. Gilmer Cox MD Work Phone: [facility] 2001 diphtheria, tetanus toxoids and acellular pertussis vaccine Dr. Gilmer Cox MD Work Phone: [facility] 2001 haemophilus influenz ae type b vaccine, PRP-T conjugate Dr. Gilmer Cox MD Work Phone: [facility] 2001 poliovirus vaccine, inactivated Dr. Gilmer Cox MD Work Phone: [facility] 2001 diphtheria, tetanus toxoids and acellular pertussis vaccine Dr. Gilmer Cox MD Work Phone: [facility] 2001 haemophilus influenz ae type b vaccine, PRP-T conjugate Dr. Gilmer Cox MD Work Phone: [facility] 2001 hepatitis B vaccine, pediatric or pediatric/adolescent dosage Dr. Gilmer Cox MD Work Phone: [facility] 2001 poliovirus vaccine, inactivated Dr. Gilmer Cox MD Work Phone: [facility] Payers Date Payer Category Payer Replaced By [facility] [id number] 2024 Medicaid [id number] 2024 Medicare [id number] 2024 Private Health Insurance [id number] 2024 Self-pay 2001 Unknown [id number] 2001 Unknown [id number] [id number]. [id number] Medicaid [id number] Medicaid [id number] Private Health Insurance [id number] Unknown [id number] [id number] Unknown [id number] 2.16.8 [id number] Unknown [id number] 2.16.8 [id number] Unknown [id number] 2.16.8 [id number] Unknown [id number] 2.16.8 [id number] Unknown [id number] 2.16.8 [id number] Unknown [id number] 2.16.8 [id number] Unknown [id number] 2.16.8 [id number] Social History Date Type Detail Facility Start: 06-02-2024 End: 06-02-2024 Tobacco smoking status NHIS Never smoked tobacco (finding) [facility] Start: 08-04-2020 Non-smoker Non-smoker [facility] Start: 06-02-2024 End: 06-06-2024 Sex Male (finding) [facility] Start: 2000 Sex Assigned At Male [facility] Sex Male [facility] Goals Date Patient Goal Desired Activity /State Functional Status Date Assessment Result Facility 06-03-2024 Functional status Ambulates [facility] Work Phone: Mental Status Date Assessment Result Facility 06-03-2024 Cognitive function Voice/Name [facility] Work Phone: 06-02-2024 Cognitive function Level Of Cons ciousness Awake;Alert;Appropriate;Follow s Commands [facility] Work Phone: Clinical Notes 09-29-2020 to 06-03-2024 Note Date & Type Note Facility 06-03-2024 Discharge summary [facility] 06-03-2024 Discharge summary [facility] 06-03-2024 Note [facility] Medical Records Department [address] [place] [address] Discharge Summary 06/03/24 1205 MR#: [id number] Acct: [id number] Name: ELMER PARSON Rep #: [id number] : 2000 24 From: Oralia Perry MD PCP: Dr. Gilmer Cox MD Status:ADM LI Location: [place] [address] Providers Date of Admission: 06/02/24 Date of Discharge: 06/03/24 Primary Care Physician: Dr. Gilmer Cox MD Reason For Visit: BILATERAL SIALEDINITIS Diagnosis Discharge Diagnosis (1) Cellulitis, neck: Status: Acute Code(s): L03.221 - Cellulitis of neck (2) Parotid gland enlargement: Status: Acute Code(s): K11.1 - Hypertrophy of salivary gland Plan #Bilateral neck cellulitis with sialedinitis * Patient admitted with a complaint of bilateral neck swelling. * He also tested positive for influenza. CT facial sinus and CT soft tissue neck showed acute bilateral submandibular gland CL adenitis likely infectious versus inflammatory and diffuse neck cellulitis greater on the right with probable reactive bilateral cervical chain lymphadenopathy and no drainable abscess. * The ED did discuss with the ENT surgeon on-call Dr. Alamo who recommended patient be given a dose of IV Decadron and per ED doctor he also stated he was available to come in and see patient if there was any airway compromise. * Start patient on IV Zosyn. Continue with IV Decadron 6 mg daily. * P.o. Cepacol for sore throat. Keep only on clear liquids for now. * Low threshold to transfer to ICU if the swelling worsens or if there is any evidence of respiratory compromise. * #Acute influenza A infection: on room air. Start on PO tamiflu 75mg bid x 5 days # History of ADHD: On methylphenidate #History of depression and MRDD: On sertraline DVT prophylaxis: Low risk. Encourage ambulation. SCDs CODE STATUS: Full code. This was discussed with patient's mother and patient and they wanted him to be full code. Medications at Discharge Home Medications methylphenidate HCl 36 mg tablet,extended release 24 hr 72 mg PO DAILY 07/28/20 montelukast 10 mg tablet 10 mg PO DAILY PRN asthma 07/28/20 sertraline 100 mg tablet 100 mg PO DAILY 07/28/20 cholecalciferol (vitamin D3) 50 mcg (2,000 unit) tablet (D3 DOTS) 50 mcg PO DAILY 06/02/24 fluticasone propionate 50 mcg/actuation nasal spray,suspension (24 Hour Allergy Relief) 2 spray intranasal DAILY PRN allergy symptoms 06/02/24 amoxicillin 875 mg-potassium clavulanate 125 mg tablet 1 tab PO BID #14 tabs 06/03/24 oseltamivir 75 mg capsule 75 mg PO BID #7 caps 06/03/24 prednisone 5 mg tablets in a dose pack See Taper PO DAILY #21 tabs 06/03/24 Hospital Course Operations None Procedures None Summary of Care Provided Minutes Spent on Discharge: 45 Hospital Course: ELMER PARSON, is a 24 M with a past medical history as outlined which includes MRDD and ADHD who presents via the ED on 06/02/2024 with complaint of bilateral jaw swelling. Patient's family members had had flulike symptoms for a few days prior to admission and he also started having similar symptoms. According to his mother, patient complained of having a sore throat and had noticing right jaw swelling the day prior to admission. She thought it was likely due to the flulike illness. However on waking up this morning they noted that he had massive bilateral jaw swelling and so decided to bring him to the ED. He denied any fever or chills and denied any difficulty swallowing or difficulty breathing. He denied having any muffled voice and had not had such symptoms before. He also denied any nausea or vomiting, shortness of breath, cough or any other symptoms. Previous times otherwise negative. Vitals in the ED were blood pressure of 123/89, pulse rate of 90, respiratory rate of 19 and temperature of 98.3 Fahrenheit. He was saturating at 98% on room air. CBC showed WBC of 7.2 with platelets of 281 and hemoglobin of 14.2. Chemistry showed sodium of 136 with potassium of 3.8 and creatinine of 0.83. Monoscreen test was negative. Chest x-ray showed no acute cardiopulmonary pathology. CT of the soft tissue head and neck showed bilateral submandibular gland sial adenitis and mild bilateral cervical chain lymphadenopathy which may be reactive. CT of the soft tissue neck showed diffuse neck cellulitis greater on the right with probable reactive bilateral cervical chain lymphadenopathy and no drainable abscess as well as acute bilateral submandibular gland sialedinitis, likely infectious versus inflammatory. Patient was admitted to be managed for diffuse neck cellulitis with bilateral sialedenitis. Was started on IV Zosyn and IV Decadron. She was put on a clear liquid diet initially. Subsequently the swelling went down significantly. He was able to tolerate a regular diet. He had no sore throat and no pain in the neck. He was therefore discha (more content not included)... [facility] 06-02-2024 History and physical note Note Date/Time June 02, 2024 2:18pm [facility] Medical Records Department [address] [place] [address] H&P Exam - Hospitalist 06/02/24 1226 MR#: [id number] Acct: [id number] Name: ELMER PARSON Rep #:[id number] : 2000 24 From: Oralia Perry MD PCP: Dr. Gilmer Cox MD Status:AD M [facility] Location: [place] [address] HPI - General General Date of Admission: 06/02/24 Date of Service: 06/02/24 Chief Complaint: Abdominal pain HPI Narrative ELMER PARSON, is a 24 M with a past medical history as outlined which includes MRDD and ADHD who presents via the ED on 06/02/2024 with complaint of bilateral jaw swelling. Patient's family members had had flulike symptoms for a few days prior to admission and he also started having similar symptoms. According to his mother, patient complained of having a sore throat and had noticing right jaw swelling the day prior to admission. She thought it was likely due to the flulike illness. However on waking up this morning they noted that he had massive bilateral jaw swelling and so decided to bring him to the ED. He deniedany fever or chills and denied any difficulty swallowing or difficulty breathing. He denied having any muffled voice and had not had such symptoms before. He also denied any nausea or vomiting, shortness of breath, cough or any other symptoms. Previous times otherwise negative. Vitals in the ED were blood pressure of 123/89, pulse rate of 90, respiratory rate of 19 and temperature of 98.3 Fahrenheit. He was saturating at 98% on roomair. CBC showed WBC of 7.2 with platelets of 281 and hemoglobin of 14.2. Chemistry showed sodium of 136 with potassium of 3.8 and creatinine of 0.83. Monoscreen test was negative. Chest x-ray showed no acute cardiopulmonary pathology. CT of the soft tissue head and neck showed bilateral submandibular gland sial adenitis and mild bilateral cervical chain lymphadenopathy which may be reactive. CT of the soft tissue neck showed diffuse neck cellulitis greater on the right with probable reactive bilateral cervical chain lymphadenopathy andno drainable abscess as well as acute bilateral submandibular gland sialedinitis, likely infectious versus inflammatory. Patient is being admitted to be managed for diffuse neck cellulitis with bilateral sialedenitis. [facility] Medical History (Updated 06/02/24 @ 14:[address] Oralia Perry MD) Autism Seizures Difficulty swallowing Non-smoker ADD (attention deficit disorder) Anxiety Home Medications ?Medication ?Instructions ?Recorded ?Last Taken ?Type methylphenidate HCl 36 mg 72 mg PO DAILY 07/28/2005/18 History tablet,extended release 24 hr montelukast 10 mg tablet 10 mg PO DAILY PRN asthma 08/11/20 07:00 History 10 mg sertraline 100 mg tablet 100 mg PO DAILY 07/28/20 History cholecalciferol (vitamin D3) 50 50 mcg PO DAILY 06/01/24 History mcg (2,000 unit) tablet (D3 DOTS) fluticasone propionate 50 2 spray intranasal DAILY PRN 06/02/24 06/01/24 History mcg/actuation nasal allergy symptoms spray,suspension (24 Hour Allergy Relief) Allergy/AdvReac Type Severity Reaction Status Date / Time No Known Allergies Allergy Verified 08/04/20 11:32 Surgical History (Updated 08/04/20 @ 11:50 by Mary Reid) Hx of adenoidectomy History of esophagogastroduodenoscopy (EGD) (~07/2020) Social History Smoking Status: Never smoker ROS Constitutional Constitutional: Reports fatigue; Denies anorexia, chills, fever(s), malaise or weakness Eyes Eyes: Denies change in vision ENT HEENT: Reports other Details: bilateral jaw swelling. ; Denies dysphagia, headache(s), nasal congestion, nasal discharge or sore throat Cardiovascular Cardiovascular: Denies dyspnea on exertion or edema Respiratory/Chest Respiratory/Chest: Denies cough, dyspnea, shortness of breath at rest or shortness of breath with exertion Gastrointestinal Gastrointestinal: Denies abdominal pain or constipation Genitourinary Genitourinary: Denies dysuria Neurologic Neurologic: Denies confusion, dizziness, focal weakness, headache(s) or numbness Psychiatric Psychiatric: Denies anxiety or depression Endocrine Endocrinology: Denies change in body appearance Hematologic/Lymphatic Hematologic/Lymphatic: Denies anemia Vital Signs Vital Signs Vital Signs: 06/02/24 09:25 06/02/24 09:37 06/02/24 10:45 Temperature 97.9 F 98.0 F 98.3 F Temperature Source Oral Oral Oral Pulse Rate 110 H 105 H 91 Respiratory Rate 20 H 16 16 Blood Pressure 127/80 H 131/88 H 127/89 H Blood Pressure Mean 95 102 101 Pulse Ox 96 96 98 Oxygen Delivery Method Room Air Room Air Room Air 06/02/24 11:00 Temperature 98.6 F Temperature Source Oral Pulse Rate 98 Respiratory Rate 16 Blood Pressure 125/89 H Blood Pressure Mean 101 Pulse Ox 98 Oxygen Delivery Method Room Air Weight Weight: 211 lb 14.4 oz Body Mass Index (BMI) 29.5 Physical Exam Const alert, oriented x3 and no apparent distress General Appearance: cooperative HEENT normocephalic and head/scalp atraumatic HEENT Narrative: bilateral massive jaw swelling, nontender, palpable submandibular lymphadenopathy, no differential warmth Mouth: oral and palatal mucosa normal Eyes PERRL, EOMs intact bilaterally and conjunctivae normal Neck no lymphadenopathy and supple Resp normal respiratory effort, no retractions, no use of accessory muscles and clearto auscultation bilaterally Resp Narrative: on room air. Cardio regular rate, regular rhythm, S1 normal heart sound, S2 normal heart sound and no murmurs GI normal to inspection, nondistended, normoactive bowel sounds, soft to palpation,non-tender and non-distended Extremity normal to inspection, full ROM and no clubbing, cyanosis or edema Neuro oriented x3, CN's II-XII intact bilaterally, moves all extremities and no focal motor deficits Sensorium / Orientation: awake and alert Motor Exam: strength 5/5 throughout Psych affect normal Results Lab / Micro Data 06/02/24 10:01 06/02/24 10:01 Labs: Laboratory Results - last 24 hr 06/02/24 10:01: WBC 7.2, RBC 4.75, Hgb 14.2, Hct 40.7, MCV 85.7, MCH 29.9, MCHC 34.9, RDW Std Deviation 37.6, RDW Coeff of Yamileth 12.0, Plt Count 281, MPV 9.4, Immature Gran % (Auto) 0.300, Neut % (Auto) 73.4 H, Lymph % (Auto) 9.3 L, Bibb %(Auto) 14.0 H, Eos % (Auto) 2.4, Baso % (Auto) 0.6, Absolute Neuts (auto) 5.3, Absolute Lymphs (auto) 0.67 L, Nucleated RBC % 0, Sodium 136, Potassium 3.8, Chloride 100, Carbon Dioxide 24.7, Anion Gap 12, BUN 9, Creatinine 0.83, Estim Creat Clear Calc 163.73, Est GFR (MDRD) Non-Af 126, BUN/Creatinine Ratio 11.1, Glucose 103 H, Lactic Acid < 1.0, Calcium 9.0, Monoscreen Negative Micro: Microbiology 06/02/24 10:05 Mucosa - Nose SARS-CoV-2, Influenza & RSV (PCR) - Final Influenzae A 06/02/24 10:05 Mucosa - Throat Streptococcus pyogenes (PCR) - Final Imaging Radiology Impression Chest X-Ray 06/02/24 09:47 IMPRESSION: No acute airspace abnormality. Reading Location: [facility] Facial/Sinus 06/02/24 09:47 IMPRESSION: 1. Bilateral submandibular gland sialadenitis, likely infectious/inflammatory. 2. Mild bilateral cervical chain lymphadenopathy which may be reactive. One or more dose reduction techniques were used (e.g., Automated exposure control, adjustment of the mA and/or kV according to patient size, use of iterative reconstruction technique). Reading Location: [facility] Soft Tissue Neck CT 06/02/24 09:47 IMPRESSION: Acute bilateral submandibular gland sialadenitis, likely infectious/inflammatory. Diffuse neck cellulitis, greater on the right. Probable reactive bilateral cervical chain lymphadenopathy. No drainable abscess. One or more dose reduction techniques were used (e.g., Automated exposure control, adjustment of the mA and/or kV according to patient size, use of iterative reconstruction technique). Reading Location: [facility] Assessment & Plan Assessment/Plan (1) Cellulitis, neck: (2) Parotid gland enlargement: PLAN: Plan #Bilateral neck cellulitis with sialedinitis * Patient admitted with a complaint of bilateral neck swelling. * He also tested positive for influenza. CT facial sinus and CT soft tissue neck showed acute bilateral submandibular gland CL adenitis likely infectious versus inflammatory and diffuse neck cellulitis greater on the right with probable reactive bilateral cervical chain lymphadenopathy and no drainable abscess. * The ED did discuss with the ENT surgeon on-call Dr. Alamo who recommended patient be given a dose of IV Decadron and per ED doctor he also stated he was available to come in and see patient if there was any airway compromise. * Start patient on IV Zosyn. Continue with IV Decadron 6 mg daily. * P.o. Cepacol for sore throat. Keep only on clear liquids for now. * Low threshold to transfer to ICU if the swelling worsens or if there is any evidence of respiratory compromise. * #Acute influenza A infection: on room air. Start on PO tamiflu 75mg bid x 5 days # History of ADHD: On methylphenidate #History of depression and MRDD: On sertraline DVT prophylaxis: Low risk. Encourage ambulation. SCDs CODE STATUS: Full code. This was discussed with patient's mother and patient and they wanted him to be full code. Charges/Coding Visit Charges Inpatient E&M: 27017 Init Hosp L3 06/02/24 1418 <Electronically signed by Oralia Perry MD> Cosigner Signature (if applicable): CC: Dr. Gilmer Cox MD; Dr. Oralia Perry MD~ Signed [facility] Work Phone: [phone] Discharge summary Author Kevin Felecia [facility] Note Date/Time June 02, 2024 1:1 5pm [facility] Medical Records Department [address] [place] [address] Emergency Department Summary 06/02/24 MR#: [id number] Acct: [id number] Name: ELMER PARSON Rep #:[id number] : 2000 24 From: Kevin Muñiz ggett DO PCP: Dr. Gilmer Cox MD Status:RE G ER Location: ED HPI History of Present Illness Chief Complaint: Edema Narrative Narrative: Chief complaint and HPI: Submandibular swelling. 24-year-old male with past medical history of allergies, depression, ADD, autism presents for evaluation ofsubmandibular swelling. Patient presents with his mother. Most of the history given by mother. Family members in the house have all endorsed URI type symptoms including the patient. Symptoms started [place]. They consist of sore throat, congestion, mild cough. Yesterday patient developed some left-sided neck swelling that worsened today to the other side. Swelling is mostly under the chin. Patient went to urgent care and was sent to our emergency department. Patient and mother deny any fever, chills, shortness of breath, chest pain, abdominal pain, nausea, vomiting. He denies any recent dental surgery or dentalpain. Denies any headache, lightheadedness, vision changes, neck pain or stiffness, change in hearing, ear pain, difficulty swallowing, difficulty tolerating secretions, change in voice. Patient has been eating and drinking well. Patient received all his childhood vaccines. Not sexually active. Review of systems: See HPI Medications: As listed on the chart Allergies: As listed on the chart PFSH: Per chart Vital signs: As listed on the chart. Reviewed. Physical exam: Gen: A&O x3, NAD Head: Normocephalic, atraumatic Eyes: No sclera icterus, conjunctiva clear, PERRL, EOMI ENT: TMs clear BL-sutures present from previous ear tubes however tube not visualized in the TM bilaterally, no mastoid swelling or tenderness, green thicknasal mucus, nasal congestion, no sinus pressure or tenderness, dry mucous membranes, no tongue enlargement or swelling, posterior oropharynx mildly erythematous, uvula midline, tonsils not enlarged, no tonsillar exudates, no dental infection, submandibular swelling with mild tenderness to palpation, tolerating secretions, normal phonation Neck: Trachea midline, No JVD, Full ROM, No meningismus CV: Tachycardic, regular rhythm, no murmurs Resp: Lungs CTA BL, no w/r/c GI: Abd soft, non-distended, non-tender, no r/r/g Musc: Full ROM, no deformity Skin: Warm, dry, no rash Neuro: Alert, oriented, grossly intact, sensation intact Psych: Cooperative, appropriate mood and affect [facility] Medical History (Updated 08/04/20 @ 11:50 by Mary Reid) Autism Seizures Difficulty swallowing Non-smoker ADD (attention deficit disorder) Anxiety Home Medications ?Medication ?Instructions ?Recorded ?Last Taken ?Type methylphenidate HCl 36 mg 72 mg PO DAILY 07/28/2005/18 History tablet,extended release 24 hr montelukast 10 mg tablet 10 mg PO DAILY PRN asthma 08/11/20 07:00 History 10 mg sertraline 100 mg tablet 100 mg PO DAILY 07/28/20 History cholecalciferol (vitamin D3) 50 50 mcg PO DAILY 06/01/24 History mcg (2,000 unit) tablet (D3 DOTS) fluticasone propionate 50 2 spray intranasal DAILY PRN 06/02/24 06/01/24 History mcg/actuation nasal allergy symptoms spray,suspension (24 Hour Allergy Relief) Allergy/AdvReac Type Severity Reaction Status Date / Time No Known Allergies Allergy Verified 08/04/20 11:32 Surgical History (Updated 08/04/20 @ 11:50 by Mary Reid) Hx of adenoidectomy History of esophagogastroduodenoscopy (EGD) (~07/2020) Social History Smoking Status: Never smoker EXAM Physical Exam Const Vital Signs: 06/02/24 09:25 06/02/24 09:37 06/02/24 10:45 Temperature 97.9 F 98.0 F 98.3 F Temperature Source Oral Oral Oral Pulse Rate 110 H 105 H 91 Respiratory Rate 20 H 16 16 Blood Pressure 127/80 H 131/88 H 127/89 H Blood Pressure Mean 95 102 101 Pulse Ox 96 96 98 Oxygen Delivery Method Room Air Room Air Room Air 06/02/24 11:00 06/02/24 12:00 06/02/24 13:00 Temperature 98.6 F 98.9 F 98.3 F Temperature Source Oral Oral Oral Pulse Rate 98 100 90 Respiratory Rate 16 19 H 19 H Blood Pressure 125/89 H 136/89 H 123/89 H Blood Pressure Mean 101 104 100 Pulse Ox 98 98 98 Oxygen Delivery Method Room Air Room Air Room Air 06/02/24 13:09 Temperature 98.3 F Temperature Source Pulse Rate 90 Respiratory Rate 19 H Blood Pressure 123/89 H Blood Pressure Mean 100 Pulse Ox 98 Oxygen Delivery Method MDM MDM MDM Narrative Medical decision making narrative: 24-year-old male with past medical history of allergies, depression, ADD, autismpresents for evaluation of submandibular swelling. Differential diagnosis includes but is not limited to Eddie angina, abscess, sinusitis, cellulitis. At this point in time, patient is protecting his airway without any symptoms of airway compromise therefore we will continue to monitor. If patient's swelling or airway deteriorates may require intubation. Mother and patient informed of this and confirmed understanding. NS bolus, Zosyn, vancomycin and Zosyn ordered. Will be digestible with fluids as do not want to increase swelling. Infectious workup ordered including CT neck and face. CBC without leukocytosis or anemia. BMP unremarkable. Bibb negative. Strep PCR negative. Patient is positive for influenza A. Tamiflu ordered given that he is within window. CT face and soft tissue neck show Acute bilateral submandibular gland sialadenitis,likely infectious/inflammatory. Diffuse neck cellulitis, greater on the right. Probable reactive bilateral cervical chain lymphadenopathy. Patient will warrant admission for observation given concern for airway compromise and significant swelling. I spoke with ENT Dr. Alamo. He will be available if needed on the floor. He recommended 10 mg IV Decadron. This was ordered. Patient was discussed with the hospitalist service and they accepted admission. Patient family updated of all results and the plan. They confirmed understanding. EKG: Interpreted by me/EM physician: EKG shows sinus tachycardia without any acute ischemic changes. Heart rate 107 Diagnostic: Interpreted by me/EM physician: Chest x-ray without pneumonia, effusion, cardiomegaly, pneumothorax Impression: 1. Influenza A infection 2. Acute bilateral submandibular gland sialadenitis Lab Data Labs: Laboratory Results - last 24 hr 06/02/24 10:01 WBC 7.2 RBC 4.75 Hgb 14.2 Hct 40.7 MCV 85.7 MCH 29.9 MCHC 34.9 RDW Std Deviation 37.6 RDW Coeff of Yamileth 12.0 Plt Count 281 MPV 9.4 Immature Gran % (Auto) 0.300 Neut % (Auto) 73.4 H Lymph % (Auto) 9.3 L Bibb % (Auto) 14.0 H Eos % (Auto) 2.4 Baso % (Auto) 0.6 Absolute Neuts (auto) 5.3 Absolute Lymphs (auto) 0.67 L Nucleated RBC % 0 Sodium 136 Potassium 3.8 Chloride 100 Carbon Dioxide 24.7 Anion Gap 12 BUN 9 Creatinine 0.83 Estim Creat Clear Calc 163.73 Est GFR (MDRD) Non-Af 126 BUN/Creatinine Ratio 11.1 Glucose 103 H Lactic Acid < 1.0 Calcium 9.0 Monoscreen Negative Radiography Diagnostic Testing: Clinical Impression(s) from Imaging Studies Chest X-Ray 06/02/24 09:47 IMPRESSION: No acute airspace abnormality. Reading Location: [facility] Facial/Sinus 06/02/24 09:47 IMPRESSION: 1. Bilateral submandibular gland sialadenitis, likely infectious/inflammatory. 2. Mild bilateral cervical chain lymphadenopathy which may be reactive. One or more dose reduction techniques were used (e.g., Automated exposure control, adjustment of the mA and/or kV according to patient size, use of iterative reconstruction technique). Reading Location: [facility] Soft Tissue Neck CT 06/02/24 09:47 IMPRESSION: Acute bilateral submandibular gland sialadenitis, likely infectious/inflammatory. Diffuse neck cellulitis, greater on the right. Probable reactive bilateral cervical chain lymphadenopathy. No drainable abscess. One or more dose reduction techniques were used (e.g., Automated exposure control, adjustment of the mA and/or kV according to patient size, use of iterative reconstruction technique). Reading Location: [facility] Discharge Plan Triage Chief Complaint: Edema ED Provider: Kevin Izquierdo Dx/Rx/DC Orders Prescriptions: No Action montelukast 10 mg tablet 10 mg PO DAILY PRN (Reason: asthma) sertraline 100 mg tablet 100 mg PO DAILY methylphenidate HCl 36 mg tablet extended release 24hr 72 mg PO DAILY fluticasone propionate [24 Hour Allergy Relief] 50 mcg/actuation spray,suspension 2 spray intranasal DAILY PRN (Reason: allergy symptoms) Rx Instructions: administer into each nostril cholecalciferol (vitamin D3) [D3 DOTS] 50 mcg (2,000 unit) tablet 50 mcg PO DAILY Primary Care Provider: Gilmer Cox Referrals: Gilmer Cox MD [Primary Care Provider] - Print Language: Lao What to do if you have Problems For any increased pain, shortness of breath, bleeding, nausea or vomiting, chestpain, or any unexpected problems, contact your Primary Care Provider. Call [facility] ([phone]) or report to the closest Emergency Room. Call 911 if necessary. 06/02/24 1315 <Electronically signed by Kevin Izquierdo DO> Cosigner Signature (if applicable): CC: Dr. Gilmer Cox MD ~ Signed [facility] Work Phone: [phone]) 365-589103-16-2025 Evaluation note* Diagnosis Onset Date Resolution Status Admit Date Cellulitis, neck acute June 022024 12:48pm Parotid gland enlargement acute June 02, 2024 12:48pm [facility] Work Phone: [phone] 276-246803-16-2025 Evaluation note* Diagnosis Onset Date Resolution Status Admit Date Cellulitis, neck inactive June 022024 12:48pm Parotid gland enlargement inactive June 02, 2024 12:48pm [facility] Work Phone: [phone] History and physical note [facility] Medical Records Department [address] [place] [address] H&P Exam - Hospitalist 06/02/24 1226 MR#: [id number] Acct: [id number] Name: ELMER PARSON Rep #:[id number] : 2000 24 From: Oralia Perry MD PCP: Dr. Gimler Cox MD Status:AD M LI Location: [place] [id number] HPI - General General Date of Admission: 06/02/24 Date of Service: 06/02/24 Chief Complaint: Abdominal pain HPI Narrative ELMER PARSON, is a 24 M with a past medical history as outlined which includes MRDD and ADHD who presents via the ED on 06/02/2024 with complaint of bilateral jaw swelling. Patient's family members had had flulike symptoms for a few days prior to admission and he also started having similar symptoms. According to his mother, patient complained of having a sore throat and had noticing right jaw swelling the day prior to admission. She thought it was likely due to the flulike illness. However on waking up this morning they noted that he had massive bilateral jaw swelling and so decided to bring him to the ED. He deniedany fever or chills and denied any difficulty swallowing or difficulty breathing. He denied having any muffled voice and had not had such symptoms before. He also denied any nausea or vomiting, shortness of breath, cough or any other symptoms. Previous times otherwise negative. Vitals in the ED were blood pressure of 123/89, pulse rate of 90, respiratory rate of 19 and temperature of 98.3 Fahrenheit. He was saturating at 98% on roomair. CBC showed WBC of 7.2 with platelets of 281 and hemoglobin of 14.2. Chemistry showed sodium of 136 with potassium of 3.8 and creatinine of 0.83. Monoscreen test was negative. Chest x-ray showed no acute cardiopulmonary pathology. CT of the soft tissue head and neck showed bilateral submandibular gland sial adenitis and mild bilateral cervical chain lymphadenopathy which may be reactive. CT of the soft tissue neck showed diffuse neck cellulitis greater on the right with probable reactive bilateral cervical chain lymphadenopathy andno drainable abscess as well as acute bilateral submandibular gland sialedinitis, likely infectious versus inflammatory. Patient is being admitted to be managed for diffuse neck cellulitis with bilateral sialedenitis. [facility] Medical History (Updated 06/02/24 @ 14:[address] Oralia Perry MD) Autism Seizures Difficulty swallowing Non-smoker ADD (attention deficit disorder) Anxiety Home Medications ?Medication ?Instructions ?Recorded ?Last Taken ?Type methylphenidate HCl 36 mg 72 mg PO DAILY 07/28/2005/18 History tablet,extended release 24 hr montelukast 10 mg tablet 10 mg PO DAILY PRN asthma 08/11/20 07:00 History 10 mg sertraline 100 mg tablet 100 mg PO DAILY 07/28/20 History cholecalciferol (vitamin D3) 50 50 mcg PO DAILY 06/01/24 History mcg (2,000 unit) tablet (D3 DOTS) fluticasone propionate 50 2 spray intranasal DAILY PRN 06/02/24 06/01/24 History mcg/actuation nasal allergy symptoms spray,suspension (24 Hour Allergy Relief) Allergy/AdvReac Type Severity Reaction Status Date / Time No Known Allergies Allergy Verified 08/04/20 11:32 Surgical History (Updated 08/04/20 @ 11:50 by Mary Reid) Hx of adenoidectomy History of esophagogastroduodenoscopy (EGD) (~07/2020) Social History Smoking Status: Never smoker ROS Constitutional Constitutional: Reports fatigue; Denies anorexia, chills, fever(s), malaise or weakness Eyes Eyes: Denies change in vision ENT HEENT: Reports other Details: bilateral jaw swelling. ; Denies dysphagia, headache(s), nasal congestion, nasal discharge or sore throat Cardiovascular Cardiovascular: Denies dyspnea on exertion or edema Respiratory/Chest Respiratory/Chest: Denies cough, dyspnea, shortness of breath at rest or shortness of breath with exertion Gastrointestinal Gastrointestinal: Denies abdominal pain or constipation Genitourinary Genitourinary: Denies dysuria Neurologic Neurologic: Denies confusion, dizziness, focal weakness, headache(s) or numbness Psychiatric Psychiatric: Denies anxiety or depression Endocrine Endocrinology: Denies change in body appearance Hematologic/Lymphatic Hematologic/Lymphatic: Denies anemia Vital Signs Vital Signs Vital Signs: 06/02/24 09:25 06/02/24 09:37 06/02/24 10:45 Temperature 97.9 F 98.0 F 98.3 F Temperature Source Oral Oral Oral Pulse Rate 110 H 105 H 91 Respiratory Rate 20 H 16 16 Blood Pressure 127/80 H 131/88 H 127/89 H Blood Pressure Mean 95 102 101 Pulse Ox 96 96 98 Oxygen Delivery Method Room Air Room Air Room Air 06/02/24 11:00 Temperature 98.6 F Temperature Source Oral Pulse Rate 98 Respiratory Rate 16 Blood Pressure 125/89 H Blood Pressure Mean 101 Pulse Ox 98 Oxygen Delivery Method Room Air Weight Weight: 211 lb 14.4 oz Body Mass Index (BMI) 29.5 Physical Exam Const alert, oriented x3 and no apparent distress General Appearance: cooperative HEENT normocephalic and head/scalp atraumatic HEENT Narrative: bilateral massive jaw swelling, nontender, palpable submandibular lymphadenopathy, no differential warmth Mouth: oral and palatal mucosa normal Eyes PERRL, EOMs intact bilaterally and conjunctivae normal Neck no lymphadenopathy and supple Resp normal respiratory effort, no retractions, no use of accessory muscles and clearto auscultation bilaterally Resp Narrative: on room air. Cardio regular rate, regular rhythm, S1 normal heart sound, S2 normal heart sound and no murmurs GI normal to inspection, nondistended, normoactive bowel sounds, soft to palpation,non-tender and non-distended Extremity normal to inspection, full ROM and no clubbing, cyanosis or edema Neuro oriented x3, CN's II-XII intact bilaterally, moves all extremities and no focal motor deficits Sensorium / Orientation: awake and alert Motor Exam: strength 5/5 throughout Psych affect normal Results Lab / Micro Data 06/02/24 10:01 06/02/24 10:01 Labs: Laboratory Results - last 24 hr 06/02/24 10:01: WBC 7.2, RBC 4.75, Hgb 14.2, Hct 40.7, MCV 85.7, MCH 29.9, MCHC 34.9, RDW Std Deviation 37.6, RDW Coeff of Yamileth 12.0, Plt Count 281, MPV 9.4, Immature Gran % (Auto) 0.300, Neut % (Auto) 73.4 H, Lymph % (Auto) 9.3 L, Bibb %(Auto) 14.0 H, Eos % (Auto) 2.4, Baso % (Auto) 0.6, Absolute Neuts (auto) 5.3, Absolute Lymphs (auto) 0.67 L, Nucleated RBC % 0, Sodium 136, Potassium 3.8, Chloride 100, Carbon Dioxide 24.7, Anion Gap 12, BUN 9, Creatinine 0.83, Estim Creat Clear Calc 163.73, Est GFR (MDRD) Non-Af 126, BUN/Creatinine Ratio 11.1, Glucose 103 H, Lactic Acid < 1.0, Calcium 9.0, Monoscreen Negative Micro: Microbiology 06/02/24 10:05 Mucosa - Nose SARS-CoV-2, Influenza & RSV (PCR) - Final Influenzae A 06/02/24 10:05 Mucosa - Throat Streptococcus pyogenes (PCR) - Final Imaging Radiology Impression Chest X-Ray 06/02/24 09:47 IMPRESSION: No acute airspace abnormality. Reading [facility] Facial/Sinus 06/02/24 09:47 IMPRESSION: 1. Bilateral submandibular gland sialadenitis, likely infectious/inflammatory. 2. Mild bilateral cervical chain lymphadenopathy which may be reactive. One or more dose reduction techniques were used (e.g., Automated exposure control, adjustment of the mA and/or kV according to patient size, use of iterative reconstruction technique). Reading [facility] 06/02/24 09:47 IMPRESSION: Acute bilateral submandibular gland sialadenitis, likely infectious/inflammatory. Diffuse neck cellulitis, greater on the right. Probable reactive bilateral cervical chain lymphadenopathy. No drainable abscess. One or more dose reduction techniques were used (e.g., Automated exposure control, adjustment of the mA and/or kV according to patient size, use of iterative reconstruction technique). Reading Location[facility] :60 SecondsEMMA Assessment & Plan Assessment/Plan (1) Cellulitis, neck: (2) Parotid gland enlargement: PLAN: Plan #Bilateral neck cellulitis with sialedinitis * Patient admitted with a complaint of bilateral neck swelling. * He also tested positive for influenza. CT facial sinus and CT soft tissue neck showed acute bilateral submandibular gland CL adenitis likely infectious versus inflammatory and diffuse neck cellulitis greater on the right with probable reactive bilateral cervical chain lymphadenopathy and no drainable abscess. * The ED did discuss with the ENT surgeon on-call Dr. Alamo who recommended patient be given a dose of IV Decadron and per ED doctor he also stated he was available to come in and see patient if there was any airway compromise. * Start patient on IV Zosyn. Continue with IV Decadron 6 mg daily. * P.o. Cepacol for sore throat. Keep only on clear liquids for now. * Low threshold to transfer to ICU if the swelling worsens or if there is any evidence of respiratory compromise. * #Acute influenza A infection: on room air. Start on PO tamiflu 75mg bid x 5 days # History of ADHD: On methylphenidate #History of depression and MRDD: On sertraline DVT prophylaxis: Low risk. Encourage ambulation. SCDs CODE STATUS: Full code. This was discussed with patient's mother and patient and they wanted him micah full code. Charges/Coding Visit Charges Inpatient E&M: 60515 Init Hosp L3 06/02/24 1418 Cosigner Signature (if applicable): CC: Dr. Gilmer Cox MD; Dr. Oralia Perry MD~ Signed [facility]03-16-2025 Discharge summary [facility] Medical Records Department [address] [place] [address] Emergency Department Summary 06/02/24 MR#: [id number] Acct: [id number] Name: ELMER PARSON Rep #:[id number] : 2000 24 From: Kevin ortega DO PCP: Dr. Gilmer Cox MD Status:RE G ER Location: ED HPI History of Present Illness Chief Complaint: Edema Narrative Narrative: Chief complaint and HPI: Submandibular swelling. 24-year-old male with past medical history of allergies, depression, ADD, autism presents for evaluation ofsubmandibular swelling. Patient presents with his mother. Most of the history given by mother. Family members in the house have all endorsed URI type symptoms including the patient. Symptoms started Monday. They consist of sore throat, congestion, mild cough. Yesterday patient developed some left-sided neck swelling that worsened today to the other side. Swelling is mostly under the chin. Patient went to urgent care and was sent to our emergency department. Patient and mother deny any fever, chills, shortness of breath, chest pain, abdominal pain, nausea, vomiting. He denies any recent dental surgery or dentalpain. Denies any headache,lightheadedness, vision changes, neck pain or stiffness, change in hearing, ear pain, difficulty swallowing, difficulty tolerating secretions, change in voice. Patient has been eating and drinking wel l. Patient received all his childhood vaccines. Not sexually active. Review of systems: See HPI Medications: As listed on the chart Allergies: As listed on the chart PFSH: Per chart Vital signs: As listed on the chart. Reviewed. Physical exam: Gen: A&O x3, NAD Head: Normocephalic, atraumatic Eyes: No sclera icterus, conjunctiva clear, PERRL, EOMI ENT: TMs clear BL-sutures present from previous ear tubes however tube not visualized in the TM bilaterally, no mastoid swelling or tenderness, green thicknasal mucus, nasal congestion, no sinus pressure or tenderness, dry mucous membranes, no tongue enlargement or swelling, posterior oropharynx mildly erythematous, uvula midline, tonsils not enlarged, no tonsillar exudates, no dental infection, submandibular swelling with mild tenderness to palpation, tolerating secretions, normal phonation Neck: Trachea midline, No JVD, Full ROM, No meningismus CV: Tachycardic, regular rhythm, no murmurs Resp: Lungs CTA BL, no w/r/c GI: Abd soft, non-distended, non-tender, no r/r/g Musc: Full ROM, no deformity Skin: Warm, dry, no rash Neuro: Alert, oriented, grossly intact, sensation intact Psych: Cooperative, appropriate mood and affect [facility] Medical History (Updated 08/04/20 @ 11:50 by Mary Reid) Autism Seizures Difficulty swallowing Non-smoker ADD (attention deficit disorder) Anxiety Home Medications ?Medication ?Instructions ?Recorded ?Last Taken ?Type methylphenidate HCl 36 mg 72 mg PO DAILY 07/28/2005/18 History tablet,extended release 24 hr montelukast 10 mg tablet 10 mg PO DAILY PRN asthma 08/11/20 07:00 History 10 mg sertraline 100 mg tablet 100 mg PO DAILY 07/28/20 History cholecalciferol (vitamin D3) 50 50 mcg PO DAILY 06/01/24 History mcg (2,000 unit) tablet (D3 DOTS) fluticasone propionate 50 2 spray intranasal DAILY PRN 06/02/24 06/01/24 History mcg/actuation nasal allergy symptoms spray,suspension (24 Hour Allergy Relief) Allergy/AdvReac Type Severity Reaction Status Date / Time No Known Allergies Allergy Verified 08/04/20 11:32 Surgical History (Updated 08/04/20 @ 11:50 by Mary Reid) Hx of adenoidectomy History of esophagogastroduodenoscopy (EGD) (~07/2020) Social History Smoking Status: Never smoker EXAM Physical Exam Const Vital Signs: 06/02/24 09:25 06/02/24 09:37 06/02/24 10:45 Temperature 97.9 F 98.0 F 98.3 F Temperature Source Oral Oral Oral Pulse Rate 110 H 105 H 91 Respiratory Rate 20 H 16 16 Blood Pressure 127/80 H 131/88 H 127/89 H Blood Pressure Mean 95 102 101 Pulse Ox 96 96 98 Oxygen Delivery Method Room Air Room Air Room Air 06/02/24 11:00 06/02/24 12:00 06/02/24 13:00 Temperature 98.6 F 98.9 F 98.3 F Temperature Source Oral Oral Oral Pulse Rate 98 100 90 Respiratory Rate 16 19 H 19 H Blood Pressure 125/89 H 136/89 H 123/89 H Blood Pressure Mean 101 104 100 Pulse Ox 98 98 98 Oxygen Delivery Method Room Air Room Air Room Air 06/02/24 13:09 Temperature 98.3 F Temperature Source Pulse Rate 90 Respiratory Rate 19 H Blood Pressure 123/89 H Blood Pressure Mean 100 Pulse Ox 98 Oxygen Delivery Method MDM MDM MDM Narrative Medical decision making narrative: 24-year-old male with past medical history of allergies, depression, ADD, autismpresents for evaluation of submandibular swelling. Differential diagnosis includes but is not limited to Eddie angina,abscess, sinusitis, cellulitis. At this point in time, patient is protecting his airway without anysymptoms of airway compromise therefore we will continue to monitor. If patient's swelling or airway deteriorates may require intubation. Mother and patient informed of this and confirmed understanding. NS bolus, Zosyn, vancomycin and Zosyn ordered. Will be digestible with fluids as do not want to increase swelling. Infectious workup ordered including CT neck and face. CBC without leukocytosis oranemia. BMP unremarkable. Bibb negative. Strep PCR negative. Patient is positive for influenza A. Tamiflu ordered given that he is within window. CT face and soft tissue neck show Acute bilateral submandibular gland sialadenitis,likely infectious/inflammatory. Diffuse neck cellulitis, greater on the right. Probable reactive bilateral cervical chain lymphadenopathy. Patient will warrant admission for observation given concern for airway compromise and significant swelling. I spoke with ENT Dr. Alamo. He will be available if needed on the floor. He recommended 10 mg IV Decadron. This was ordered. Patient was discussed with the hospitalist service and they accepted admission. Patient familyupdated of all results and the plan. They confirmed understanding. EKG: Interpreted by me/EM physician: EKG shows sinus tachycardia without any acute ischemic changes. Heart rate 107 Diagnostic: Interpreted by me/EM physician: Chest x-ray without pneumonia, effusion, cardiomegaly, pneumothorax Impression: 1. Influenza A infection 2. Acute bilateral submandibular gland sialadenitis Lab Data Labs: Laboratory Results - last 24 hr 06/02/24 10:01 WBC 7.2 RBC 4.75 Hgb 14.2 Hct 40.7 MCV 85.7 MCH 29.9 MCHC 34.9 RDW Std Deviation 37.6 RDW Coeff of Yamileth 12.0 Plt Count 281 MPV 9.4 Immature Gran % (Auto) 0.300 Neut % (Auto) 73.4 H Lymph % (Auto) 9.3 L Bibb % (Auto) 14.0 H Eos % (Auto) 2.4 Baso % (Auto) 0.6 Absolute Neuts (auto) 5.3 Absolute Lymphs (auto) 0.67 L Nucleated RBC % 0 Sodium 136 Potassium 3.8 Chloride 100 Carbon Dioxide 24.7 Anion Gap 12 BUN 9 Creatinine 0.83 Estim Creat Clear Calc 163.73 Est GFR (MDRD) Non-Af 126 BUN/Creatinine Ratio 11.1 Glucose 103 H Lactic Acid < 1.0 Calcium 9.0 Monoscreen Negative Radiography Diagnostic Testing: Clinical Impression(s) from Imaging Studies Chest X-Ray 06/02/24 09:47 IMPRESSION: No acute airspace abnormality. Reading Location: [facility] Facial/Sinus 06/02/24 09:47 IMPRESSION: 1. Bilateral submandibular gland sialadenitis, likely infectious/inflammatory. 2. Mild bilateral cervical chain lymphadenopathy which may be reactive. One or more dose reduction techniques were used (e.g., Automated exposure control, adjustment of the mA and/or kV according to patient size, use of iterative reconstruction technique). Reading Location: [facility] Soft Tissue Neck CT 06/02/24 09:47 IMPRESSION: Acute bilateral submandibular gland sialadenitis, likely infectious/inflammatory. Diffuse neck cellulitis, greater on the right. Probable reactive bilateral cervical chain lymphadenopathy. No drainable abscess. One or more dose reduction techniques were used (e.g., Automated exposure control, adjustment of the mA and/or kV according to patient size, use of iterative reconstruction technique). Reading Location: [facility] Discharge Plan Triage Chief Complaint: Edema ED Provider: Kevin Izquierdo Dx/Rx/DC Orders Prescriptions: No Action montelukast 10 mg tablet 10 mg PO DAILY PRN (Reason: asthma) sertraline 100 mg tablet 100 mg PO DAILY methylphenidate HCl 36 mg tablet extended release 24hr 72 mg PO DAILY fluticasone propionate [24 Hour Allergy Relief] 50 mcg/actuation spray,suspension 2 spray intranasal DAILY PRN (Reason: allergy symptoms) Rx Instructions: administer into each nostril cholecalciferol (vitamin D3) [D3 DOTS] 50 mcg (2,000 unit) tablet 50 mcg PO DAILY Primary Care Provider: Gilmer Cox Referrals: Gilmer Cox MD [Primary Care Provider] - Print Language: Lao What to do if you have Problems For any increased pain, shortness of breath, bleeding, nausea or vomiting, chestpain, or any unexpected problems, contact your Primary Care Provider. Call [employer] [facility] ([phone]) or report tothe closest Emergency Room. Call 911 if necessary. 06/02/24 [id number] Cosigner Signature (if applicable): CC: Dr. Gilmer Cox MD ~ Signed [facility]03-16-2025 Radiology Diagnostic study note [facility] Imaging Services [address] [place] [address] Soft Tissue Neck W/WO Contrast MR#: [id number] Acct: [id number] Name: ELMER PARSON Rep #: [id number] : 2000 M 24 From: Iraj Martinez DO PCP: Dr. Gilmer Cox MD Status: RE G ER Study:Soft Tissue Neck W/WO Contrast Date of Exam: 06/02/24 Exam# [id number] Ordering Dr: Kevin Heredia DO PROCEDURE: CT neck soft tissues without and with IV contrast REASON FOR EXAM: Pain, swelling TECHNIQUE: Multiple contiguous axial images through the neck soft tissues were obtained before and after the administration of intravenous contrast. Two-dimensional coronal and sagittal reformatted images were reconstructed. Low-dose imaging technique was utilized. COMPARISON: Same-day facial bone CT FINDINGS: Symmetric enlargement and enhancement of the bilateral submandibular glands withmoderate surrounding inflammatory changes most consistent with acute sialadenitis. Diffuse bilateral neck fat stranding, slightly greater on the right likely related to cellulitis. No drainable abscess. Enlarged bilateral cervical chain lymph nodes which may be reactive. No sialoliths identified. No peritonsillar or retropharyngeal abscess. Airway is patent. Parotid glands and thyroid gland are intact. Globes are intact. Lung apices are clear. No acute osseous abnormality. CT/Soft Tissue Neck W/WO Contrast IMPRESSION: Acute bilateral submandibular gland sialadenitis, likely infectious/inflammatory. Diffuse neck cellulitis, greater on the right. Probable reactive bilateral cervical chain lymphadenopathy. No drainable abscess. One or more dose reduction techniques were used (e.g., Automated exposure control, adjustment of the mA and/or kV according to patient size, use of iterative reconstruction technique). Reading Location: [facility] CC: Dr. Kevin Izquierdo DO; Dr. Gilmer Cox MD ~ Rock Loader: Signed [facility]03-16-2025 Radiology Diagnostic study note [facility] Imaging Services [address] [place], [place] [id number] Sinus/Facial Bone WITH Contras MR#: [id number] Acct: [id number] Name: ELMER PARSON Rep #: [id number] : 2000 M 24 From: Iraj Martinez DO PCP: Dr. Gilmer Cox MD Status: RE G ER Study:Sinus/Facial Bone WITH Contras Date of Exam: 06/02/24 Exam# [id number] Ordering Dr: Kevin Heredia DO PROCEDURE: CT facial bones with IV contrast REASON FOR EXAM: Pain, swelling TECHNIQUE: Multiple contiguous axial images through the facial bones were obtained after the administration ofintravenous contrast. Two-dimensional coronal and sagittal reformatted images were reconstructed. Low- dose imaging technique was utilized. COMPARISON: None. FINDINGS: Enlargement and hyperenhancement of the bilateral submandibular glands with moderate surrounding inflammatory changes concerning for acute sialadenitis. No evidence of sialoliths. Mild adjacent cellulitis, greater on the right. Thickening of the right platysma muscle. No discrete mucosal mass. Tongue base is satisfactory. Tonsillar pillars are within normal limits. No periodontal abscess. Globes are intact. Parotid glands are within normal limits. Multiple mildly enlarged bilateral cervical chain lymph nodes which may be reactive. Mild ethmoid sinus mucosal thickening. Remaining paranasalsinuses are clear. Mastoid air cells are clear. CT/Sinus/Facial Bone WITH Contras IMPRESSION: 1. Bilateral submandibular gland sialadenitis, likely infectious/inflammatory. 2. Mild bilateral cervical chain lymphadenopathy which may be reactive. One or more dose reduction techniques were used (e.g., Automated exposure control, adjustment of the mA and/or kV according to patient size, use of iterative reconstruction technique). Reading Location: [facility] CC: Dr. Kevin Izquierdo DO; Dr. Gilmer Cox MD ~ Rock Loader: Signed [facility]03-16-2025 Radiology Diagnostic study note [facility] Imaging Services [address] [place] [address] Chest PA and Lateral MR#: [id number] Acct: [id number] Name: ELMER PARSON Rep #: [id number] : 2000 M 24 From: Iraj Martinez DO PCP: Dr. Gilmer Cox MD Status: RE G ER Study:Chest PA and Lateral Date of Exam: 06/02/24 Exam# [id number] Ordering Dr: Kevin Heredia DO PROCEDURE: CHEST PA AND LATERAL REASON FOR EXAM: COUGH TECHNIQUE: Two views of the chest COMPARISON: None. FINDINGS: Cardiomediastinal silhouette is within normal limits. Lungs are clear. No sizable pneumothorax. RAD/Chest PA and Lateral IMPRESSION: No acute airspace abnormality. Reading Location: [facility] CC: Dr. Kevin Izquierdo DO; Dr. Gilmer Cox MD ~ Rock Loader: Signed [facility]07-13-2021 NoteHNO ID: [id number] Author: Silvia Brito MD Service: ? Author Type: Physician Type: Progress Notes Filed: 09/30/2020 10:17 AM Note Text: This is a consultation requested by Dr. Dewitt for an allergy and immunology evaluation. My final recommendations will be communicated back to the requesting healthcare provider(s) by way of shared medical record or via [place] mail. Elmer Parson is a 20 year old male who presents for further evaluation of eosinophilic esophagitis. He has a several month history of difficulty swallowing. In July, he presented to the emergency room when a piece of chicken got stuck in his esophagus. This passed spontaneously when he drank Coca-Cola. 2 to 3 days later, a Concerta pill became impacted in the esophagus. He presented to the emergency room and underwent endoscopy. A moderately severe stenosis was noted 20 cm from the incisors and was dilated. He then took a proton pump inhibitor for 1 month. He underwent a repeat EGD 3 weeks after the ER visit. Per the records, gross findings on EGD were normal. 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 pylori. The number of eosinophils per high-power field was not noted on these reports. He has never experienced a severe immediate reaction such as urticaria, angioedema, respiratory distress, lightheadedness or loss of consciousness associated with ingestion of specific foods. He denies GERD symptoms. Denies diarrhea, melena and hematochezia. He also has symptoms of clear rhinorrhea, nasal congestion, sneezing, postnasal drip. Associated symptoms include cough . These symptoms are perennial with seasonal exacerbation in the spring and fall. Current triggers include exposure to cat and dog. The patient has been suffering from these symptoms for several year(s). The patient uses Flonase, Singulair and Zyrtec as needed with good control of symptoms. No prior allergy testing or allergy immunotherapy. He complains of skin rash occurring on his elbows, dorsal hands and knees in the spring and summer. Rash is described as red raised mildly pruritic and persistent bumps. REVIEW OF SYSTEMS: SINUSITIS: The patient does not suffer from frequent sinopulmonary infections. ASTHMA: The patient has no history of asthma. ECZEMA: The patient has no history of eczema. URTICARIA:The patient does not have a history of urticaria and/or angioedema. GERD: The patient does not have a history of GERD. INSECT STING: The patient does not have a history of systemic reaction to insect sting. FOOD ALLERGY:The patient denies history of food allergy. LATEX: The patient does not have a history of adverse reaction to latex. All other review of systems negative except for those listed above. PAST MEDICAL HISTORY Diagnosis Date - ADHD mild congnitive disabilities and autistic tendencies MEDICATIONS: Cetirizine (ZYRTEC) 10 mg cap Take by mouth as needed. montelukast (SINGULAIR) 10 mg tablet Take 10 mg by mouth as needed. sertraline (ZOLOFT) 100 mg tablet Take 100 mg by mouth once daily. methylphenidate HCl (CONCERTA ORAL) Take 72 mg by mouth once daily. ALLERGIES: Allergies As of Date: 09/29/2020 Allergen Noted Reaction SEASONAL ALLERGIES 09/29/2020 Other: See Comments Fully Assessed 09/29/2020 PAST SURGICAL HISTORY Procedure Laterality Date - ADENOIDECTOMY HX - PAST SURGICAL HISTORY OF wisdom teeth removal FAMILY HISTORY: Allergic rhinitis:yes: mom. Asthma: yes: mom. Eczema: no. Cystic fibrosis: no. Immunodeficiency: no. SOCIAL HISTORY: Employer And Job Title: None on file Years Of Education Completed: Not specified Marital Status: Single Social History Tobacco Use Smoking status: Never Smoker Smokeless tobacco: Never Used ENVIRONMENTAL HISTORY: Lives in a house Age of home: 15 years Heating: gas Woodburning fireplace in the home: no Air conditioning: Central air Basement: Damp basement. No visible mold. Lluvia: [id number]-[id number] carpeting Dust mite controls: Dust mite controls are already in place on mattress. . Pets in the home: 1 dogs Outdoor animals: There are no outdoor animals Tobacco smoke: No exposure in the home. Physical Exam: GENERAL APPEARANCE:Well appearing, alert, in no acute distress, well-hydrated, well nourished. HEENT: NCAT. EYES: conjunctiva and sclera normal. EARS: External ears normal. Canals clear. TM's normal. NOSE/SINUS: mild edema of the nasal mucosa with scant clear secretions bilaterally THROAT: no erythema NECK:neck supple, no adenopathy HEART:RRR with normal S1 and S2 ,no murmurs, no gallops, no rubs LUNGS: clear to auscultation bilaterally, no wheezes, rales or rhonchi ABDOMEN:soft, nontender, nondistended, without organomegaly or palpable masses EXTREMITIES:Extremities normal, No deformities, No skin discoloration and No (more content not included)...[facility] summary Author Kevin AndersKaia [facility] Note Date/Time June 02, 2024 1:1 5pm [facility] Medical Records Department [address] [place] [address] Emergency Department Summary 06/02/24 MR#: [id number] Acct: [id number] Name: ELMER PARSON Rep #:[id number] : 2000 24 From: Kevin putnamett DO PCP: Dr. Gilmer Cox MD Status:RE G ER Location: ED HPI History of Present Illness Chief Complaint: Edema Narrative Narrative: Chief complaint and HPI: Submandibular swelling. 24-year-old male with past medical history of allergies, depression, ADD, autism presents for evaluation ofsubmandibular swelling. Patient presents with his mother. Most of the history given by mother. Family members in the house have all endorsed URI type symptoms including the patient. Symptoms started Monday. They consist of sore throat, congestion, mild cough. Yesterday patient developed some left-sided neck swelling that worsened today to the other side. Swelling is mostly under the chin. Patient went to urgent care and was sent to our emergency department. Patient and mother deny any fever, chills, shortness of breath, chest pain, abdominal pain, nausea, vomiting. He denies any recent dental surgery or dentalpain. Denies any headache, lightheadedness, vision changes, neck pain or stiffness, change in hearing, ear pain, difficulty swallowing, difficulty tolerating secretions, change in voice. Patient has been eating and drinking well. Patient received all his childhood vaccines. Not sexually active. Review of systems: See HPI Medications: As listed on the chart Allergies: As listed on the chart PFSH: Per chart Vital signs: As listed on the chart. Reviewed. Physical exam: Gen: A&O x3, NAD Head: Normocephalic, atraumatic Eyes: No sclera icterus, conjunctiva clear, PERRL, EOMI ENT: TMs clear BL-sutures present from previous ear tubes however tube not visualized in the TM bilaterally, no mastoid swelling or tenderness, green thicknasal mucus, nasal congestion, no sinus pressure or tenderness, dry mucous membranes, no tongue enlargement or swelling, posterior oropharynx mildly erythematous, uvula midline, tonsils not enlarged, no tonsillar exudates, no dental infection, submandibular swelling with mild tenderness to palpation, tolerating secretions, normal phonation Neck: Trachea midline, No JVD, Full ROM, No meningismus CV: Tachycardic, regular rhythm, no murmurs Resp: Lungs CTA BL, no w/r/c GI: Abd soft, non-distended, non-tender, no r/r/g Musc: Full ROM, no deformity Skin: Warm, dry, no rash Neuro: Alert, oriented, grossly intact, sensation intact Psych: Cooperative, appropriate mood and affect [facility] Medical History (Updated 08/04/20 @ 11:50 by Mary Reid) Autism Seizures Difficulty swallowing Non-smoker ADD (attention deficit disorder) Anxiety Home Medications ?Medication ?Instructions ?Recorded ?Last Taken ?Type methylphenidate HCl 36 mg 72 mg PO DAILY 07/28/2005/18 History tablet,extended release 24 hr montelukast 10 mg tablet 10 mg PO DAILY PRN asthma 08/11/20 07:00 History 10 mg sertraline 100 mg tablet 100 mg PO DAILY 07/28/20 History cholecalciferol (vitamin D3) 50 50 mcg PO DAILY 06/01/24 History mcg (2,000 unit) tablet (D3 DOTS) fluticasone propionate 50 2 spray intranasal DAILY PRN 06/02/24 06/01/24 History mcg/actuation nasal allergy symptoms spray,suspension (24 Hour Allergy Relief) Allergy/AdvReac Type Severity Reaction Status Date / Time No Known Allergies Allergy Verified 08/04/20 11:32 Surgical History (Updated 08/04/20 @ 11:50 by Mary Reid) Hx of adenoidectomy History of esophagogastroduodenoscopy (EGD) (~07/2020) Social History Smoking Status: Never smoker EXAM Physical Exam Const Vital Signs: 06/02/24 09:25 06/02/24 09:37 06/02/24 10:45 Temperature 97.9 F 98.0 F 98.3 F Temperature Source Oral Oral Oral Pulse Rate 110 H 105 H 91 Respiratory Rate 20 H 16 16 Blood Pressure 127/80 H 131/88 H 127/89 H Blood Pressure Mean 95 102 101 Pulse Ox 96 96 98 Oxygen Delivery Method Room Air Room Air Room Air 06/02/24 11:00 06/02/24 12:00 06/02/24 13:00 Temperature 98.6 F 98.9 F 98.3 F Temperature Source Oral Oral Oral Pulse Rate 98 100 90 Respiratory Rate 16 19 H 19 H Blood Pressure 125/89 H 136/89 H 123/89 H Blood Pressure Mean 101 104 100 Pulse Ox 98 98 98 Oxygen Delivery Method Room Air Room Air Room Air 06/02/24 13:09 Temperature 98.3 F Temperature Source Pulse Rate 90 Respiratory Rate 19 H Blood Pressure 123/89 H Blood Pressure Mean 100 Pulse Ox 98 Oxygen Delivery Method MDM MDM MDM Narrative Medical decision making narrative: 24-year-old male with past medical history of allergies, depression, ADD, autismpresents for evaluation of submandibular swelling. Differential diagnosis includes but is not limited to Eddie angina, abscess, sinusitis, cellulitis. At this point in time, patient is protecting his airway without any symptoms of airway compromise therefore we will continue to monitor. If patient's swelling or airway deteriorates may require intubation. Mother and patient informed of this and confirmed understanding. NS bolus, Zosyn, vancomycin and Zosyn ordered. Will be digestible with fluids as do not want to increase swelling. Infectious workup ordered including CT neck and face. CBC without leukocytosis or anemia. BMP unremarkable. Bibb negative. Strep PCR negative. Patient is positive for influenza A. Tamiflu ordered given that he is within window. CT face and soft tissue neck show Acute bilateral submandibular gland sialadenitis,likely infectious/inflammatory. Diffuse neck cellulitis, greater on the right. Probable reactive bilateral cervical chain lymphadenopathy. Patient will warrant admission for observation given concern for airway compromise and significant swelling. I spoke with ENT Dr. Alamo. He will be available if needed on the floor. He recommended 10 mg IV Decadron. This was ordered. Patient was discussed with the hospitalist service and they accepted admission. Patient family updated of all results and the plan. They confirmed understanding. EKG: Interpreted by me/EM physician: EKG shows sinus tachycardia without any acute ischemic changes. Heart rate 107 Diagnostic: Interpreted by me/EM physician: Chest x-ray without pneumonia, effusion, cardiomegaly, pneumothorax Impression: 1. Influenza A infection 2. Acute bilateral submandibular gland sialadenitis Lab Data Labs: Laboratory Results - last 24 hr 06/02/24 10:01 WBC 7.2 RBC 4.75 Hgb 14.2 Hct 40.7 MCV 85.7 MCH 29.9 MCHC 34.9 RDW Std Deviation 37.6 RDW Coeff of Yamileth 12.0 Plt Count 281 MPV 9.4 Immature Gran % (Auto) 0.300 Neut % (Auto) 73.4 H Lymph % (Auto) 9.3 L Bibb % (Auto) 14.0 H Eos % (Auto) 2.4 Baso % (Auto) 0.6 Absolute Neuts (auto) 5.3 Absolute Lymphs (auto) 0.67 L Nucleated RBC % 0 Sodium 136 Potassium 3.8 Chloride 100 Carbon Dioxide 24.7 Anion Gap 12 BUN 9 Creatinine 0.83 Estim Creat Clear Calc 163.73 Est GFR (MDRD) Non-Af 126 BUN/Creatinine Ratio 11.1 Glucose 103 H Lactic Acid < 1.0 Calcium 9.0 Monoscreen Negative Radiography Diagnostic Testing: Clinical Impression(s) from Imaging Studies Chest X-Ray 06/02/24 09:47 IMPRESSION: No acute airspace abnormality. [facility] Fac[facility]/Sinus 06/02/24 09:47 IMPRESSION: 1. Bilateral submandibular gland sialadenitis, likely infectious/inflammatory. 2. Mild bilateral cervical chain lymphadenopathy which may be reactive. One or more dose reduction techniques were used (e.g., Automated exposure control, adjustment of the mA and/or kV according to patient size, use of iterative reconstruction technique). [facility] 06/02/24 09:47 IMPRESSION: Acute bilateral submandibular gland sialadenitis, likely infectious/inflammatory. Diffuse neck cellulitis, greater on the right. Probable reactive bilateral cervical chain lymphadenopathy. No drainable abscess. One or more dose reduction techniques were used (e.g., Automated exposure control, adjustment of the mA and/or kV according to patient size, use of iterative reconstruction technique). Reading Location: [facility] Discharge Plan Triage Chief Complaint: Edema ED Provider: Kevin Izquierdo Dx/Rx/DC Orders Prescriptions: No Action montelukast 10 mg tablet 10 mg PO DAILY PRN (Reason: asthma) sertraline 100 mg tablet 100 mg PO DAILY methylphenidate HCl 36 mg tablet extended release 24hr 72 mg PO DAILY fluticasone propionate [24 Hour Allergy Relief] 50 mcg/actuation spray,suspension 2 spray intranasal DAILY PRN (Reason: allergy symptoms) Rx Instructions: administer into each nostril cholecalciferol (vitamin D3) [D3 DOTS] 50 mcg (2,000 unit) tablet 50 mcg PO DAILY Primary Care Provider: Gilmer Cox Referrals: Gilmer Cox MD [Primary Care Provider] - Print Language: Lao What to do if you have Problems For any increased pain, shortness of breath, bleeding, nausea or vomiting, chestpain, or any unexpected problems, contact your Primary Care Provider. Call [employer] [facility] ([phone]) or report to the closest Emergency Room. Call 911 if necessary. 06/02/24 1315 <Electronically signed by Kevin Izquierdo DO> Cosigner Signature (if applicable): CC: Dr. Gilmer Cox MD ~ Signed [facility] Work Phone: Discharge summary Author Oralia Perry [facility] Note Date/Time June 03, 2024 12: 05pm [facility] Medical Records Department [address] [place] [address] Instructions for Home/Discharge Instructions 06/03/24 1204 MR#: [id number] Acct: [id number] Name: ELMER PARSON Rep #:[id number] : 2000 24 From: Oralia Perry MD PCP: Dr. Gilmer Cox MD Status:AD M LI Discharge Instructions Diet Discharge Diet: Low fat / Low cholesterol DC O2, CPAP, BIPAP needs Home O2 Discharge instructions: No Dressing / Incision Discharge Activity: Return to Normal Activity Weight Bearing Status: Weight bearing as tolerated Dressing / Incision Call your doctor if you observe: Fever of 101 or Higher, Shortness of breath, Dizziness, Swelling in the ankles and Chest pain Follow Up Care Test Results: Test results from this visit will be discussed in further detail at your follow- up appointment, if applicable. Discharge Plan Admission Admit Date/Time: 06/02/24 12:48 Primary Reason for Your Visit: neck cellulitis, bilateral sialedinitis Attending Provider: Oralia Perry Primary Care Provider: Gilmer Cox Instructions Patient Instructions: ED Salivary Gland Infection Discharge Orders/Prescriptions Prescriptions: New oseltamivir 75 mg Capsule 75 mg PO BID Qty: 7 0RF amoxicillin-pot clavulanate 875-125 mg tablet 1 tab PO BID Qty: 14 0RF prednisone 5 mg tablets,dose pack See Taper PO DAILY Qty: 21 0RF Taper: Prednisone Taper 60 mg WITH BREAKFAST for 3 Days and 0 Hour 50 mg WITH BREAKFAST for 3 Days and 0 Hour 40 mg WITH BREAKFAST for 3 Days and 0 Hour 30 mg WITH BREAKFAST for 3 Days and 0 Hour 20 mg WITH BREAKFAST for 3 Days and 0 Hour 10 mg WITH BREAKFAST for 3 Days and 0 Hour Continued montelukast 10 mg tablet 10 mg PO DAILY PRN (Reason: asthma) sertraline 100 mg tablet 100 mg PO DAILY methylphenidate HCl 36 mg tablet extended release 24hr 72 mg PO DAILY fluticasone propionate [24 Hour Allergy Relief] 50 mcg/actuation spray,suspension 2 spray intranasal DAILY PRN (Reason: allergy symptoms) Rx Instructions: administer into each nostril cholecalciferol (vitamin D3) [D3 DOTS] 50 mcg (2,000 unit) tablet 50 mcg PO DAILY Referrals / Follow Up: Gilmer Cox MD [Primary Care Provider] - Within 1 Week Disposition Disposition (needs filled in before D/C Order can be placed): Home, Self Care 06/03/24 1205<Electronically signed by Oralia Perry MD>Oralia Perry MD CC: Dr. Gilmer Cox MD ~ Signed [facility] Work Phone: Discharge summary Author [facility] Note Date/Time June 03, 2024 12: 14pm [facility] Medical Records Department [address] [place] [address] Discharge Summary 06/03/24 1205 MR#: [id number] Acct: [id number] Name: ELMER PARSON Rep #:[id number] : 2000 24 From: Oralia Perry MD PCP: Dr. Gilmer Cox MD Status:AD M LI Location: [place] [address] Providers Date of Admission: 06/02/24 Date of Discharge: 06/03/24 Primary Care Physician: Dr. Gilmer Cox MD Reason For Visit: BILATERAL SIALEDINITIS Diagnosis Discharge Diagnosis (1) Cellulitis, neck: Status: Acute Code(s): L03.221 - Cellulitis of neck (2) Parotid gland enlargement: Status: Acute Code(s): K11.1 - Hypertrophy of salivary gland Plan #Bilateral neck cellulitis with sialedinitis * Patient admitted with a complaint of bilateral neck swelling. * He also tested positive for influenza. CT facial sinus and CT soft tissue neck showed acute bilateral submandibular gland CL adenitis likely infectious versus inflammatory and diffuse neck cellulitis greater on the right with probable reactive bilateral cervical chain lymphadenopathy and no drainable abscess. * The ED did discuss with the ENT surgeon on-call Dr. Alamo who recommended patient be given a dose of IV Decadron and per ED doctor he also stated he was available to come in and see patient if there was any airway compromise. * Start patient on IV Zosyn. Continue with IV Decadron 6 mg daily. * P.o. Cepacol for sore throat. Keep only on clear liquids for now. * Low threshold to transfer to ICU if the swelling worsens or if there is any evidence of respiratory compromise. * #Acute influenza A infection: on room air. Start on PO tamiflu 75mg bid x 5 days # History of ADHD: On methylphenidate #History of depression and MRDD: On sertraline DVT prophylaxis: Low risk. Encourage ambulation. SCDs CODE STATUS: Full code. This was discussed with patient's mother and patient and they wanted him to be full code. Medications at Discharge Home Medications methylphenidate HCl 36 mg tablet,extended release 24 hr 72 mg PO DAILY 07/28/20 montelukast 10 mg tablet 10 mg PO DAILY PRN asthma 07/28/20 sertraline 100 mg tablet 100 mg PO DAILY 07/28/20 cholecalciferol (vitamin D3) 50 mcg (2,000 unit) tablet (D3 DOTS) 50 mcg PO DAILY 06/02/24 fluticasone propionate 50 mcg/actuation nasal spray,suspension (24 Hour Allergy Relief) 2 spray intranasal DAILY PRN allergy symptoms 06/02/24 amoxicillin 875 mg-potassium clavulanate 125 mg tablet 1 tab PO BID #14 tabs 06/03/24 oseltamivir 75 mg capsule 75 mg PO BID #7 caps 06/03/24 prednisone 5 mg tablets in a dose pack See Taper PO DAILY #21 tabs 06/03/24 Hospital Course Operations None Procedures None Summary of Care Provided Minutes Spent on Discharge: 45 Hospital Course: ELMER PARSON, is a 24 M with a past medical history as outlined which includes MRDD and ADHD who presents via the ED on 06/02/2024 with complaint of bilateral jaw swelling. Patient's family members had had flulike symptoms for a few days prior to admission and he also started having similar symptoms. According to his mother, patient complained of having a sore throat and had noticing right jaw swelling the day prior to admission. She thought it was likely due to the flulike illness. However on waking up this morning they noted that he had massive bilateral jaw swelling and so decided to bring him to the ED. He deniedany fever or chills and denied any difficulty swallowing or difficulty breathing. He denied having any muffled voice and had not had such symptoms before. He also denied any nausea or vomiting, shortness of breath, cough or any other symptoms. Previous times otherwise negative. Vitals in the ED were blood pressure of 123/89, pulse rate of 90, respiratory rate of 19 and temperature of 98.3 Fahrenheit. He was saturating at 98% on roomair. CBC showed WBC of 7.2 with platelets of 281 and hemoglobin of 14.2. Chemistry showed sodium of 136 with potassium of 3.8 and creatinine of 0.83. Monoscreen test was negative. Chest x-ray showed no acute cardiopulmonary pathology. CT of the soft tissue head and neck showed bilateral submandibular gland sial adenitis and mild bilateral cervical chain lymphadenopathy which may be reactive. CT of the soft tissue neck showed diffuse neck cellulitis greater on the right with probable reactive bilateral cervical chain lymphadenopathy andno drainable abscess as well as acute bilateral submandibular gland sialedinitis, likely infectious versus inflammatory. Patient was [facility] to [facility] for diffuse neck cellulitis with bilateral sialedenitis. Was started onIV Zosyn and IV Decadron. She was put on a clear liquid diet initially. Subsequently the swelling went down significantly. He was able to tolerate a regular diet. He had no sore throat and no pain in the neck. He was therefore discharged home on 06/03/2024 on p.o. Augmentin for 7-day course. He was also discharged on p.o. Tamiflu for 7 tablets to complete a 5-day course. He was also discharged on a prednisone taper. He is to follow-up with his primary caredoctor within 1 to 2 weeks. Patient seen and examined prior to discharge. His mother and father were by hisbedside. The swelling had gone down markedly. He had no complaints. He had anuneventful night. Review of systems otherwise negative. Labs and vitals reviewed. Home medication reviewed and reconciled. Physical Exam Const alert, oriented x3 and no apparent distress General Appearance: cooperative and comfortable Orientation / Consciousness: awake HEENT normocephalic, head/scalp atraumatic, hearing grossly normal bilaterally and moist oral mucous membranes Mouth: oral and palatal mucosa normal Eyes PERRL, EOMs intact bilaterally and conjunctivae normal Neck no lymphadenopathy and supple Resp normal respiratory effort, no retractions, no use of accessory muscles and clearto auscultation bilaterally Resp Narrative: on room air. Cardio regular rate, regular rhythm, S1 normal heart sound, S2 normal heart sound and no murmurs GI normal to inspection, nondistended, normoactive bowel sounds, soft to palpation,non-tender and non-distended Extremity normal to inspection, full ROM and no clubbing, cyanosis or edema Skin no rashes or lesions noted Neuro oriented x3, CN's II-XII intact bilaterally, moves all extremities and no focal motor deficits Sensorium / Orientation: awake and alert Motor Exam: strength 5/5 throughout Psych affect normal Weight / BMI Weight Weight: 212 lb 15.465 oz Body Mass Index (BMI) 30.5 ABG / Lab / Microbiology Data 06/03/24 03:53 06/03/24 03:53 Laboratory: Laboratory Results - last 24 hr 06/03/24 03:53: WBC 5.3, RBC 4.59 L, Hgb 13.6, Hct 39.2 L, MCV 85.4, MCH 29.6, MCHC 34.7, RDW Std Deviation 37.8, RDW Coeff of Yamileth 12.2, Plt Count 286, MPV 9.5, Immature Gran % (Auto) 0.400, Neut % (Auto) 63.1, Lymph % (Auto) 21.6, Bibb% (Auto) 14.7 H, Eos % (Auto) 0.0, Baso % (Auto) 0.2, Absolute Neuts (auto) 3.4,Absolute Lymphs (auto) 1.15, Nucleated RBC % 0, Sodium 140, Potassium 3.7, Chloride 104, Carbon Dioxide 22.5, Anion Gap 13, BUN 9, Creatinine 0.72, Estim Creat Clear Calc 186.06, Est GFR (MDRD) Non-Af 131, BUN/Creatinine Ratio 11.8, Glucose 113 H, Calcium 8.8 Microbiology: Microbiology 06/02/24 10:05 Mucosa - Nose SARS-CoV-2, Influenza & RSV (PCR) - Final Influenzae A 06/02/24 10:05 Mucosa - Throat Streptococcus pyogenes (PCR) - Final D/C Instructions Discharge Diet: Low fat / Low cholesterol Discharge Activity: Return to Normal Activity Weight Bearing Status: Weight bearing as tolerated Call your doctor if you observe: Fever of 101 or Higher, Shortness of breath, Dizziness, Swelling in the ankles and Chest pain DC O2, CPAP, BIPAP Needs Home O2 Discharge instructions: No DC home with Oxygen: No Meaningful Use Info Meaningful Use Meaningful Use Diagnoses (Choose all that apply): None applicable Ischemic Stroke Statin Dosing Therapy Reference: STATIN DOSE THERAPY REFERENCE: * Patients > 75 years receive moderate or high dose statin therapy. * Patients 75 years or YOUNGER should receive HIGH intensity statin dose unless contraindicated. You will be required to document reason for non-treatment if statin daily dose does not meet guidelines. HIGH DOSE STATIN THERAPY DAILY Atorvastatin > than or = to 40 mg Rosuvastatin > than or = to 20 mg Amlodipine + Atorvastatin > than or = to 2.5/40 mg Ezetimibe + Simvastatin 10/80 mg Simvastatin 80mg Discharge Plan Admission Admit Date/Time: 06/02/24 12:48 Primary Reason for Your Visit: neck cellulitis, bilateral sialedinitis Attending Provider: Oralia Perry Primary Care Provider: Gilmer Cox Instructions Patient Instructions: ED Salivary Gland Infection Discharge Orders/Prescriptions Prescriptions: New oseltamivir 75 mg Capsule 75 mg PO BID Qty: 7 0RF amoxicillin-pot clavulanate 875-125 mg tablet 1 tab PO BID Qty: 14 0RF prednisone 5 mg tablets,dose pack See Taper PO DAILY Qty: 21 0RF Taper: Prednisone Taper 60 mg WITH BREAKFAST for 3 Days and 0 Hour 50 mg WITH BREAKFAST for 3 Days and 0 Hour 40 mg WITH BREAKFAST for 3 Days and 0 Hour 30 mg WITH BREAKFAST for 3 Days and 0 Hour 20 mg WITH BREAKFAST for 3 Days and 0 Hour 10 mg WITH BREAKFAST for 3 Days and 0 Hour Continued montelukast 10 mg tablet 10 mg PO DAILY PRN (Reason: asthma) sertraline 100 mg tablet 100 mg PO DAILY methylphenidate HCl 36 mg tablet extended release 24hr 72 mg PO DAILY fluticasone propionate [24 Hour Allergy Relief] 50 mcg/actuation spray,suspension 2 spray intranasal DAILY PRN (Reason: allergy symptoms) Rx Instructions: administer into each nostril cholecalciferol (vitamin D3) [D3 DOTS] 50 mcg (2,000 unit) tablet 50 mcg PO DAILY Referrals / Follow Up: Gilmer Cox MD [Primary Care Provider] - Within 1 Week Disposition Disposition (needs filled in before D/C Order can be placed): Home, Self Care Charges/Coding Visit Charges Inpatient E&M: 55271 Disch Hosp >30min 06/03/24 1214 <Electronically signed by Oralia Perry MD> Cosigner Signature (if applicable): CC: Dr. Gilmer Cox MD; Dr. Oralia Perry MD~ Signed [facility] Work Phone: Evaluation noteNo assessment information available [facility] Work Phone: Reason for referral (narrative)No reason for referral information availableWSavalancheCleveland [facility] Work Phone: Summary Purpose Family History No Family History Records FoundNo Family History Records FoundNo Family History Records Found Advance Directives No Advanced Directives Records Found Advance Directive Response Recorded Date/ Time Living Will No June 02, 2024 9:35am Power of Collection Officer No June 02 9:35am Advance Directive Response Recorded Date/ Time Living Will No June 02, 2024 2:30pm Power of Collection Officer No June 02 2:30pm Advance Directive Response Recorded Date/ Time Living Will No June 02, 2024 2:30pm Do you have a Healthcare Power of Collection Officer? No June 02, 2024 2:30pm Chief Complaint and Reason for Visit Chief Complaint Admit Date BILATERAL SIALEDINITIS June 02, 2024 12:48pm Chief Complaint Admit Date BILATERAL SIALEDINITIS June 02, 2024 12:48pm BILATERAL SIALEDINITIS June 03, 2024 12:05pm Reason for Visit Admit Date Cellulitis, neck June 02, 2024 12: 48pm Parotid gland enlargement June 02 12:48pm Additional Source Comments (unrecognized sect ion and content) No Status Records FoundNo Status Records FoundNo Status Records Found INFORMATION SOURCE (unrecogn ized section and content) DATE CREATED AUTHOR 04/22/2021 [facility] DATE CREATED AUTHOR AUTHOR'S ORGANIZ ATION 12/22/2021 [facility] DATE CREATED AUTHOR AUTHOR'S ORGANIZ ATION 12/23/2024 [facility] Care Teams (unrecognized sec tion and content) Team Status: Active Member Role Status Dates Dr. Gilmer Cox MD Primary Care Provider Active Team Status: Inactive Member Role Status Dates Dr. Gilmer Cox MD Primary Care Provider Active Start: May 23, 2024 End: May 23, 2024 Dr. Gilmer Cox MD Attending Provider Active Start: May 23, 2024 End: May 23, 2024 Dr. Gilmer Cox MD Referring Provider Active Start: May 23, 2024 End: May 23, 2024 Team Status: Inactive Member Role Status Dates Dr. Gilmer Cox MD Primary Care Provider Active Start: June 02, 2024 End: June 03, 2024 Dr. Kevin Izquierdo DO Emergency Provider Activ e Start: June 02, 2024 End: June 03, 2024 Dr. Oralia Perry MD Admit Provider Active St art: June 02, 2024 End: June 03, 2024 Dr. Oralia Perry MD Attending Provider Active Start: June 02, 2024 End: June 03, 2024 Dr. Oralia Perry MD Other Provider Active St art: June 02, 2024 Team Status: Active Member Role Status Dates Dr. Gilmer Cox MD Primary Care Provider Active Start: June 03, 2024 Dr. Kevin Izquierdo DO Emergency Provider Activ e Start: June 03, 2024 Dr. Oralia Perry MD Admit Provider Active St art: June 03, 2024 Dr. Oralia Perry MD Attending Provider Active Start: June 03, 2024 Dr. Oralia Perry MD Other Provider Active St art: June 03, 2024 Team Status: Active Member Role Status Dates Dr. Gilmer Cox MD Primary Care Provider Active Start: May 23, 2024 Dr. Gilmer Cox MD Attending Provider Active Start: May 23, 2024 Dr. Gilmer Cox MD Referring Provider Active Start: May 23, 2024 Team Status: Active Member Role Status Dates Dr. Gilmer Cox MD Primary Care Provider Active Start: June 02, 2024 Dr. Kevin Klusty-Kaia , DO Emergency Provider Activ e Start: June 02, 2024 Dr. Oralia Perry MD Admit Provider Active St art: June 02, 2024 Dr. Oralia Perry MD Attending Provider Active Start: June 02, 2024 Team Status: Inactive Member Role Status Dates Dr. Gilmer Cox MD Primary Care Provider Active Start: July 16, 2024 End: July 16, 2024 Dr. Gilmer Cox MD Attending Provider Active Start: July 16, 2024 End: July 16, 2024 Dr. Gilmer Cox MD Referring Provider Active Start: July 16, 2024 End: July 16, 2024 Team Status: Active Member Role/Relationship Status Dates Dr. Gilmer Cox MD Primary care physician Active Team Status: Inactive Member Role/Relationship Status Dates Dr. Gilmer Cox MD Primary care physician Active Start: December 05, 2024 End: December 05, 2024 Dr. Gilmer Cox MD Attending physician Active Start: December 05, 2024 End: December 05, 2024 Goals (unrecognized section and content) Goals may be documented in a n alternate sectionGoals may be documented in an alternate section FOR RECORDS PERTAINING TO PATIENTS WHO ARE OR HAVE BEEN ENROLLED IN A CHEMICAL DEPENDENCY/SUBSTANCEABUSE PROGRAM, SOME INFORMATION MAY BE OMITTED. This clinical summary was aggregated from multiple sources. Caution should be exercised in using it in the provision of clinical care. This summary normalizes information from multiple sources, and as a consequence, information in this document may materially change the coding, format and clinical context of patient data. In addition, data may be omitted in some cases. CLINICAL DECISIONS SHOULD BE BASED ON THE PRIMARY CLINICAL RECORDS. [employer] provides no warranty or guarantee of the accuracy or completeness of information in this document.
[2025-01-30] MEDS: Glucagon 1 MG/ML Syringe IV (19:59)
[2025-01-30] MEDS: Lidocaine 2% Viscous15 ML UDC 15 ML PO (20:21)
[2025-01-30 21:13] VITALS: BP 120/93; PULSE 98; RESP 18; TEMP 37.1; O2SAT 99
== END 2025-01-30 21:14 | disposition home or self-care (01) ==
PROVIDERS: Emergency Provider Student in an Organized Health Care Education/Training Program; PCP Family Medicine; Visit Provider Student in an Organized Health Care Education/Training Program
DX: T18.108A Unspecified foreign body in esophagus causing other injury, initial encounter (principal); F98.8 Other specified behavioral and emotional disorders with onset usually occurring in childhood and adolescence; F41.9 Anxiety disorder, unspecified; F84.0 Autistic disorder; X58.XXXA Exposure to other specified factors, initial encounter
CPT/HCPCS: 96374; 99283; A4216; J1610